=== PATIENT | female | born 1940 | race Caucasian/White ===

== ENCOUNTER 2016-07-29 19:58 | Inpatient (IN) | payer OTHER, MEDICARE ==
[2016-07-29] MEDS ORDERED: MORPHINE SULFATE 4 MG/ML SYRINGE IVP STA (20:10)
[2016-07-29] MEDS ORDERED: RX INFO: IV CONTRAST WAS GIVEN 1 EACH MISC MISCELLANE PRN (20:10)
[2016-07-29] MEDS ORDERED: ONDANSETRON 4 MG/2 ML VIAL IVP STA ×2 (20:10→22:44)
[2016-07-29] MEDS ORDERED: SODIUM CHLORIDE 0.9% 1,000 ML IV STA ×2 (20:10→22:57)
[2016-07-29 20:21] LABS: Basophils % (A) 0 %; CH 30.6; CHCM 34.2; Eosinophils # (A) 0.3 k/uL (0-0.7); Eosinophils % (A) 4 %; HCT 39.5 % (34.0-46.0); HDW 2.75; HGB 13.3 gm/dL (11.4-16.0); Luc # (Auto) 0.28; Luc % (Auto) 3; Lymphocytes % (A) 24 %; MCH 30.4 pg (25.0-35.0); MCHC 33.8 g/dL (31.0-37.0); Mean Platelet Volume 7.4; Monocytes # (A) 0.4 k/uL (0-1.0); Monocytes % (A) 4 %; Neutrophils # (A) 5.4 k/uL (1.3-7.7); Neutrophils % (A) 64 %; RBC 4.39 m/uL (3.80-5.40); RDW 13.5 % (11.5-15.5); WBC 8.4 k/uL (3.8-10.6); WBC (Perox) 8.57
[2016-07-29 20:24] LABS: Glucose,Whole Blood 135 mg/dL (75-99)
[2016-07-29 20:29] LABS: Partial Thromboplastin Time 23.4 sec (22.0-30.0); Prothrombin Time 10.3 sec (9.0-12.0)
[2016-07-29 20:31] LABS: ALT 56 U/L (9-52); AST 58 U/L (14-36); Alcohol <10 mg/dL; Alkaline Phosphatase 62 U/L (38-126); Anion Gap 12 mmol/L; Blood Urea Nitrogen 11 mg/dL (7-17); Calcium 9.3 mg/dL (8.4-10.2); Carbon Dioxide 25 mmol/L (22-30); Chloride 104 mmol/L (98-107); Glucose 124 mg/dL (74-99); Non-African American GFR(MDRD) >60 (>60 ml/min/1.73 sqM); Sodium 141 mmol/L (137-145); Total Bilirubin 0.5 mg/dL (0.2-1.3); Total Protein 6.8 g/dL (6.3-8.2)
[2016-07-29 20:40] LABS: Creatine Kinase 65 U/L (30-135)
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
[2016-07-29 20:54] LABS: Creatine Kinase MB 1.8 ng/mL (0.0-2.4); Troponin I <0.012 ng/mL (0.000-0.034)
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
[2016-07-29] MEDS ORDERED: PANTOPRAZOLE 40 MG/10 ML VIAL IVP STA (22:44)
[2016-07-29] MEDS ORDERED: SODIUM CHLORIDE 0.9% 500 ML IV STA (22:57)
[2016-07-30] MEDS: MORPHINE SULFATE 4 MG/ML SYRINGE IVP PRN ×3 (03:33→10:54)
[2016-07-30] MEDS: ONDANSETRON 4 MG/2 ML VIAL IVP PRN ×2 (07:26→12:27)
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
[2016-07-30 11:54] LABS: Basophils % (A) 0 %; CH 30.4; CHCM 33.1; Eosinophils % (A) 0 %; HCT 33.3 % (34.0-46.0); HGB 11.2 gm/dL (11.4-16.0); Luc # (Auto) 0.11; Luc % (Auto) 2; Lymphocytes # (A) 0.8 k/uL (1.0-4.8); Lymphocytes % (A) 13 %; MCHC 33.6 g/dL (31.0-37.0); MCV 92.2 fL (80.0-100.0); Mean Platelet Volume 7.4; Monocytes # (A) 0.4 k/uL (0-1.0); Monocytes % (A) 6 %; Neutrophils % (A) 80 %; RBC 3.61 m/uL (3.80-5.40); RDW 13.7 % (11.5-15.5); WBC 6.2 k/uL (3.8-10.6); WBC (Perox) 6.96
[2016-07-30 12:01] LABS: ALT 50 U/L (9-52); AST 42 U/L (14-36); Alkaline Phosphatase 49 U/L (38-126); Anion Gap 9 mmol/L; Blood Urea Nitrogen 12 mg/dL (7-17); Calcium 8.3 mg/dL (8.4-10.2); Carbon Dioxide 25 mmol/L (22-30); Chloride 108 mmol/L (98-107); Glucose 136 mg/dL (74-99); Non-African American GFR(MDRD) >60 (>60 ml/min/1.73 sqM); Sodium 142 mmol/L (137-145); Total Bilirubin 0.6 mg/dL (0.2-1.3); Total Protein 5.7 g/dL (6.3-8.2)
[2016-07-30 12:05] LABS: Potassium 4.4 mmol/L (3.5-5.1)
[2016-07-30] MEDS: ALBUTEROL NEBULIZED 2.5 MG/3 ML INHALATION SCH ×2 (12:19→16:32)
[2016-07-30] MEDS: ACETAMINOPHEN IV (For NPO) 1,000 MG in EMPTY BAG 1 BAG IVPB SCH ×3 (12:27→23:21)
[2016-07-30] MEDS: CEPHALEXIN 500 MG CAP PO SCH ×3 (12:28→20:47)
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
[2016-07-30] MEDS: HEPARIN SODIUM,PORCINE 5,000 UNIT/ML 1 ML VIAL SQ SCH ×2 (17:26→23:21)
[2016-07-30] MEDS: HYDROcodone/APAP 5-325MG 1 EACH TAB PO PRN (21:00)
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
[2016-07-31] MEDS: ALBUTEROL NEBULIZED 2.5 MG/3 ML INHALATION SCH ×9 (00:46→20:02)
[2016-07-31] MEDS: HYDROcodone/APAP 5-325MG 1 EACH TAB PO PRN ×3 (04:27→20:53)
[2016-07-31] MEDS: ACETAMINOPHEN IV (For NPO) 1,000 MG in EMPTY BAG 1 BAG IVPB SCH (05:00)
[2016-07-31] MEDS: HEPARIN SODIUM,PORCINE 5,000 UNIT/ML 1 ML VIAL SQ SCH ×3 (08:39→23:06)
[2016-07-31] MEDS: PANTOPRAZOLE 40 MG/10 ML VIAL IVP SCH (08:39)
[2016-07-31] MEDS: CEPHALEXIN 500 MG CAP PO SCH ×4 (08:39→20:41)
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
[2016-07-31 15:25] VITALS: RESP 16
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
[2016-07-31] MEDS ORDERED: ALBUTEROL NEBULIZED 2.5 MG/3 ML INHALATION PRN (19:53)
[2016-07-31] MEDS: ONDANSETRON 4 MG/2 ML VIAL IVP PRN (23:28)
[2016-08-01] MEDS: PANTOPRAZOLE 40 MG/10 ML VIAL IVP SCH (07:23)
[2016-08-01] MEDS: HYDROcodone/APAP 5-325MG 1 EACH TAB PO PRN ×3 (07:23→19:03)
[2016-08-01] MEDS: HEPARIN SODIUM,PORCINE 5,000 UNIT/ML 1 ML VIAL SQ SCH ×2 (07:23→17:38)
[2016-08-01] MEDS: CEPHALEXIN 500 MG CAP PO SCH ×4 (07:23→21:31)
[2016-08-01] MEDS: ALBUTEROL NEBULIZED 2.5 MG/3 ML INHALATION SCH ×4 (07:30→21:44)
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
--- NOTE | 2016-08-01 20:06 | MR ---
EXAMINATION TYPE: MR brain wo con DATE OF EXAM: 08/01/2016 7:47 PM COMPARISON: None HISTORY: Confused Standard multiplanar, multisequence MRI departmental protocol Multiplanar, multisequence images of the brain were acquired. Diffusion weighted imaging was performe d. FINDINGS: there is cerebral cortical atrophy. There is no mass effect nor midline shift. There is no sign of intracranial hemorrhage. There is thinning of the corpus callosum. There is some prominence o f the ventricles. The brainstem is intact. There is no evidence of acute cortical infarct. IMPRESSION: There is evidence of normal pressure mild hydrocephalus. Cerebral atrophy. No acute intracranial abno rmality.
[2016-08-01] MEDS ORDERED: LORazepam 0.5 MG TAB PO SCH (21:00)
[2016-08-02] MEDS: HEPARIN SODIUM,PORCINE 5,000 UNIT/ML 1 ML VIAL SQ SCH ×3 (00:42→16:08)
[2016-08-02] MEDS: HYDROcodone/APAP 5-325MG 1 EACH TAB PO PRN ×3 (00:43→14:47)
[2016-08-02] MEDS ORDERED: PANTOPRAZOLE 40 MG TABLET PO SCH (07:30)
[2016-08-02] MEDS: ALBUTEROL NEBULIZED 2.5 MG/3 ML INHALATION SCH ×3 (08:19→16:24)
[2016-08-02 08:28] LABS: Basophils % (A) 0 %; CH 30.6; CHCM 33.7; Eosinophils # (A) 0.2 k/uL (0-0.7); Eosinophils % (A) 3 %; HCT 31.9 % (34.0-46.0); HDW 2.82; HGB 10.9 gm/dL (11.4-16.0); Luc # (Auto) 0.17; Luc % (Auto) 3; Lymphocytes # (A) 1.3 k/uL (1.0-4.8); Lymphocytes % (A) 24 %; MCH 31.2 pg (25.0-35.0); MCHC 34.1 g/dL (31.0-37.0); MCV 91.4 fL (80.0-100.0); Mean Platelet Volume 7.5; Monocytes # (A) 0.4 k/uL (0-1.0); Monocytes % (A) 7 %; Neutrophils # (A) 3.2 k/uL (1.3-7.7); Neutrophils % (A) 62 %; RBC 3.48 m/uL (3.80-5.40); RDW 13.6 % (11.5-15.5); WBC 5.2 k/uL (3.8-10.6); WBC (Perox) 5.65
[2016-08-02] MEDS: CEPHALEXIN 500 MG CAP PO SCH ×2 (11:43→14:47)
[2016-08-02 14:56] VITALS: BP 174/81; TEMP 99.1
[2016-08-02 16:33] VITALS: PULSE 82
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
== END 2016-08-02 17:35 | DRG 913 ==
LOC: EC 19:58 → 3SUR 22:44
PROVIDERS: ADMIT Surgery; ATTEND Surgery
DX: S09.90XA Unspecified injury of head, initial encounter (principal); G92 Toxic encephalopathy; F03.90 Unspecified dementia, unspecified severity, without behavioral disturbance, psychotic disturbance, mood disturbance, and anxiety; V49.50XA Passenger injured in collision with unspecified motor vehicles in traffic accident, initial encounter; M46.90 Unspecified inflammatory spondylopathy, site unspecified; S02.40DA Maxillary fracture, left side, initial encounter for closed fracture; S42.001A Fracture of unspecified part of right clavicle, initial encounter for closed fracture; T40.605A Adverse effect of unspecified narcotics, initial encounter; Z86.14 Personal history of Methicillin resistant Staphylococcus aureus infection; Z87.891 Personal history of nicotine dependence; Z79.899 Other long term (current) drug therapy; Z88.1 Allergy status to other antibiotic agents; Z82.49 Family history of ischemic heart disease and other diseases of the circulatory system; Z96.60 Presence of unspecified orthopedic joint implant
CPT/HCPCS: 36415; 70450; 70486; 70551; 71010; 71260; 72125; 72170; 74177; 80053; 80320; 82550; 82553; 83690; 84484; 85025; 85610; 85730; 86850; 86900; 86901; 93005; 94640; 94760; 96361; 96374; 96375; 96376; 99291

== ENCOUNTER → 2017-01-05 | Outpatient (CLI) | payer MEDICARE | END | disposition home or self-care (01) | LOC: LABWHC1 08:16 | PROVIDERS: ATTEND Family Medicine | DX: N39.0 Urinary tract infection, site not specified (principal) | CPT/HCPCS: 36415; 87390 ==

== ENCOUNTER 2018-02-14 22:26 | Emergency (ER) | payer MEDICARE ==
[2018-02-14 22:45] VITALS: TEMP 98.1
[2018-02-14] MEDS ORDERED: SODIUM CHLORIDE 0.9% 500 ML IV STA (23:17)
[2018-02-14] MEDS ORDERED: ONDANSETRON 4 MG/2 ML VIAL IVP STA (23:17)
[2018-02-15 00:06] LABS: Basophils % (A) 0 %; Eosinophils # (A) 0.3 k/uL (0-0.7); Eosinophils % (A) 4 %; HCT 40.2 % (34.0-46.0); HGB 13.2 gm/dL (11.4-16.0); Lymphocytes # (A) 1.2 k/uL (1.0-4.8); Lymphocytes % (A) 18 %; MCH 29.7 pg (25.0-35.0); MCHC 32.8 g/dL (31.0-37.0); MCV 90.7 fL (80.0-100.0); Mean Platelet Volume 7.1; Monocytes # (A) 0.3 k/uL (0-1.0); Monocytes % (A) 5 %; Neutrophils % (A) 72 %; Platelet Count 201 k/uL (150-450); RBC 4.44 m/uL (3.80-5.40); RDW 13.4 % (11.5-15.5)
[2018-02-15 00:16] LABS: ALT 26 U/L (9-52); AST 21 U/L (14-36); Albumin 3.7 g/dL (3.5-5.0); Alkaline Phosphatase 47 U/L (38-126); Amylase 105 U/L (30-110); Anion Gap 6 mmol/L; Blood Urea Nitrogen 15 mg/dL (7-17); Calcium 9.1 mg/dL (8.4-10.2); Carbon Dioxide 29 mmol/L (22-30); Chloride 103 mmol/L (98-107); Glucose 109 mg/dL (74-99); Lipase 483 U/L (23-300); Potassium 3.7 mmol/L (3.5-5.1); Sodium 138 mmol/L (137-145); Total Bilirubin 0.5 mg/dL (0.2-1.3); Total Protein 6.2 g/dL (6.3-8.2)
[2018-02-15 00:37] LABS: Appearance,Urine Clear (Clear); Bilirubin,Urine Negative (Negative); Blood,Urine Negative (Negative); Color,Urine Light Yellow; Glucose,Urine (UA) Negative (Negative); Hyaline Casts,Urine 74 /lpf (0-2); Ketones,Urine Negative (Negative); Leukocyte Esterase,Urine Small (Negative); Mucus,Urine Rare /hpf; Nitrite,Urine Negative (Negative); PH, Urine 6.5 (5.0-8.0); Protein,Urine Negative (Negative); RBC,Urine 1 /hpf (0-5); Specific Gravity,Urine 1.011 (1.001-1.035); Squamous Epithelial Cell,Urine <1 /hpf (0-4); Urobilinogen,Urine <2.0 mg/dL (<2.0); WBC,Urine 4 /hpf (0-5)
--- NOTE | 2018-02-15 01:50 | CT ---
EXAMINATION TYPE: CT abdomen pelvis w con DATE OF EXAM: 02/15/2018 COMPARISON: 07/29/2016 HISTORY: lower abdominal pain;diarrhea CT DLP: 1400 mGycm Automated exposure control for dose reduction was used. TECHNIQUE: Helical acquisition of images was performed from the lung bases through the pelvis. CONTRAST: Performed without Oral Contrast and with IV Contrast, patient injected with 100 mL of Isovue 300. FINDINGS: There is some mild reticular density in the lingula left upper lobe. There is no pleural effusion. Th ere is no pericardial effusion. There is small hiatal hernia. Liver spleen pancreas gallbladder appear normal. Bile ducts are not dil ated. There is no adrenal mass. Kidneys show satisfactory contrast opacification. There is no hydronephrosi s. There is 7 mm cyst on the left kidney. There is no retroperitoneal adenopathy. There is no ascites . There is calcified uterine fibroids. Bladder distends smoothly. There is no free fluid in the pelvi s. Appendix appears normal. Abdominal aorta shows moderate atheromatous change. There is no evidence of a renal calculus. There is no sign of free air. There is lower lumbar spine surgery noted. IMPRESSION: SMALL HIATAL HERNIA. FIBROID UTERUS. ATHEROSCLEROTIC VASCULAR DISEASE. NO SIGN OF ACUTE ABDOMEN AND P RASHAWN. THERE IS MINIMAL RETICULAR INFILTRATE OR ATELECTASIS IN THE LINGULA LEFT UPPER LOBE THAT IS SI MILAR COMPARED TO OLD EXAM.
--- NOTE | 2018-02-15 02:03 | ED ---
Abdominal Pain HPI - General Chief Complaint: Abdominal Pain Stated Complaint: Abd Pain Time Seen by Provider: 02/14/18 23:04 Source: patient Mode of arrival: ambulatory Limitations: no limitations - History of Present Illness Initial Comments: 77-year-old female patient presents the emergency department today for evaluation of vomiting and abdominal discomfort. Patient does have history of dementia and is a poor historian however patient's family reports that she has been having some left side pain for the last few days. States she did see her primary care physician yesterday was diagnosed with urinary tract infection started on Augmentin. Family states that today she did have one episode of diarrhea and did have one episode of vomiting this evening. Patient currently denies any abdominal pain. She denies any fever, chills, hematuria, dysuria, urinary frequency, urinary urgency. Patient's family however states that she was urinating more frequently over the last several days. Patient denies any recent rash, fever, chills, shortness breath, chest pain, diarrhea, constipation , back pain, numbness, tingling, dizziness, weakness, headache, visual changes, or any other complaints. - Related Data Home Medications Medication Instructions Recorded Confirmed Cholecalciferol [Vitamin D3] 1,000 unit PO DAILY 07/30/16 07/30/16 Cyanocobalamin [Vitamin B-12] 500 mcg PO DAILY 07/30/16 07/30/16 Multivitamins, Thera [Multivitamin] 1 tab PO DAILY 07/30/16 07/30/16 Naproxen Sodium [Aleve] 440 mg PO QAM 07/30/16 07/30/16 Propranolol [Inderal] 20 mg PO DAILY 07/30/16 07/30/16 Previous Rx's Medication Instructions Recorded Cephalexin [Keflex] 500 mg PO Q6HR #40 cap 07/31/16 Docusate [Colace] 100 mg PO DAILY 30 Days capsule 07/31/16 HYDROcodone/APAP 5-325MG [Egan 1 tab PO Q4HR PRN #30 tab 07/31/16 5-325] Nitrofurantoin Monohyd/M-Cryst 100 mg PO Q12HR #10 cap 02/15/18 [Macrobid] Allergies Allergy/AdvReac Type Severity Reaction Status Date / Time erythromycin base Allergy Unknown Verified 02/14/18 22:45 [From Erythrocin] Review of Systems ROS Statement: Those systems with pertinent positive or pertinent negative responses have been documented in the HPI. ROS Other: All systems not noted in ROS Statement are negative. Past Medical History Past Medical History: Chest Pain / Angina, Dementia History of Any Multi-Drug Resistant Organisms: MRSA Date of last positivie culture/infection: 2012 MDRO Source:: THROAT Past Surgical History: Back Surgery, Joint Replacement Additional Past Surgical History / Comment(s): jas knees,carpal tunnel,neck surgery, rt shoulder Past Anesthesia/Blood Transfusion Reactions: No Reported Reaction Past Psychological History: No Psychological Hx Reported Smoking Status: Former smoker Past Alcohol Use History: Rare Past Drug Use History: None Reported - Past Family History Father Family Medical History: Cancer Mother Family Medical History: Cancer Sister(s) Family Medical History: Myocardial Infarction ([place]) General Exam Limitations: no limitations General appearance: alert, in no apparent distress, other (This is a well- developed, well-nourished elderly female patient in no acute distress. Vital signs upon presentation are temperature 98.1F, pulse 71, respirations 20, blood pressure 188/77, pulse ox 96% on room air.) Eye exam: Present: normal appearance, PERRL, EOMI. Absent: scleral icterus, conjunctival injection, periorbital swelling ENT exam: Present: normal exam, normal oropharynx, mucous membranes moist Respiratory exam: Present: normal lung sounds bilaterally. Absent: respiratory distress, wheezes, rales, rhonchi, stridor Cardiovascular Exam: Present: regular rate, normal rhythm, normal heart sounds. Absent: systolic murmur, diastolic murmur, rubs, gallop, clicks GI/Abdominal exam: Present: soft, tenderness (Mild midepigastric tenderness), normal bowel sounds. Absent: distended, guarding, rebound, rigid Back exam: Present: normal inspection. Absent: CVA tenderness (R), CVA tenderness (L) Neurological exam: Present: alert, oriented X3, CN II-XII intact Psychiatric exam: Present: normal affect, normal mood Skin exam: Present: warm, dry, intact, normal color. Absent: rash Course Vital Signs 02/14/18 02/14/18 02/15/18 22:42 23:58 02:11 Temperature 98.1 F 98.1 F Pulse Rate 71 60 63 Respiratory 20 17 18 Rate Blood Pressure 188/77 157/71 181/84 O2 Sat by Pulse 96 97 96 Oximetry Medical Decision Making - Medical Decision Making 77 year-old female patient presents to emergency department today for complaints of abdominal discomfort, vomiting, and diarrhea. Physical examination did reveal some mild midepigastric tenderness. Labs reviewed and did reveal an elevated lipase at over 400. CT abdomen and pelvis was obtained and showed no acute findings of did show fibroid uterus some atherosclerotic changes to the abdominal aorta and chronic changes in the right lung. Also did show evidence of a left renal cyst. I did discuss findings and results with the patient and her family. We did discuss Augmentin side effects as a possible cause of her vomiting and diarrhea. I did discuss elevated lipase and educated regarding signs or symptoms of pancreatitis. They're instructed follow up with the primary care physician for recheck in 1-2 days. Return parameters discussed in detail with verbalize understanding and agree with this plan. - Lab Data Result diagrams: 02/14/18 23:50 02/14/18 23:50 Lab Results 02/14/18 02/14/18 02/14/18 Range/Units 23:50 23:50 23:50 WBC 7.0 (3.8-10.6) k/uL RBC 4.44 (3.80-5.40) m/uL Hgb 13.2 (11.4-16.0) gm/dL Hct 40.2 (34.0-46.0) % MCV 90.7 (80.0-100.0) fL MCH 29.7 (25.0-35.0) pg MCHC 32.8 (31.0-37.0) g/dL RDW 13.4 (11.5-15.5) % Plt Count 201 (150-450) k/uL Neutrophils % 72 % Lymphocytes % 18 % Monocytes % 5 % Eosinophils % 4 % Basophils % 0 % Neutrophils # 5.0 (1.3-7.7) k/uL Lymphocytes # 1.2 (1.0-4.8) k/uL Monocytes # 0.3 (0-1.0) k/uL Eosinophils # 0.3 (0-0.7) k/uL Basophils # 0.0 (0-0.2) k/uL Sodium 138 (137-145) mmol/L Potassium 3.7 (3.5-5.1) mmol/L Chloride 103 (98-107) mmol/L Carbon Dioxide 29 (22-30) mmol/L Anion Gap 6 mmol/L BUN 15 (7-17) mg/dL Creatinine 0.60 (0.52-1.04) mg/dL Est GFR (CKD-EPI)AfAm >90 (>60 ml/min/1.73 sqM) Est GFR (CKD-EPI)NonAf 89 (>60 ml/min/1.73 sqM) Glucose 109 H (74-99) mg/dL Plasma Lactic Acid Derrick 0.7 (0.7-2.0) mmol/L Calcium 9.1 (8.4-10.2) mg/dL Total Bilirubin 0.5 (0.2-1.3) mg/dL AST 21 (14-36) U/L ALT 26 (9-52) U/L Alkaline Phosphatase 47 (38-126) U/L Troponin I (0.000-0.034) ng/mL Total Protein 6.2 L (6.3-8.2) g/dL Albumin 3.7 (3.5-5.0) g/dL Amylase 105 (30-110) U/L Lipase 483 H (23-300) U/L Urine Color Urine Appearance (Clear) Urine pH (5.0-8.0) Ur Specific [place] (1.001-1.035) Urine Protein (Negative) Urine Glucose (UA) (Negative) Urine Ketones (Negative) Urine Blood (Negative) Urine Nitrite (Negative) Urine Bilirubin (Negative) Urine Urobilinogen (<2.0) mg/dL Ur Leukocyte Esterase (Negative) Urine RBC (0-5) /hpf Urine WBC (0-5) /hpf Ur Squamous Epith Cells (0-4) /hpf Hyaline Casts (0-2) /lpf Urine Mucus (None) /hpf 02/14/18 02/15/18 Range/Units 23:50 00:15 WBC (3.8-10.6) k/uL RBC (3.80-5.40) m/uL Hgb (11.4-16.0) gm/dL Hct (34.0-46.0) % MCV (80.0-100.0) fL MCH (25.0-35.0) pg MCHC (31.0-37.0) g/dL RDW (11.5-15.5) % Plt Count (150-450) k/uL Neutrophils % % Lymphocytes % % Monocytes % % Eosinophils % % Basophils % % Neutrophils # (1.3-7.7) k/uL Lymphocytes # (1.0-4.8) k/uL Monocytes # (0-1.0) k/uL Eosinophils # (0-0.7) k/uL Basophils # (0-0.2) k/uL Sodium (137-145) mmol/L Potassium (3.5-5.1) mmol/L Chloride (98-107) mmol/L Carbon Dioxide (22-30) mmol/L Anion Gap mmol/L BUN (7-17) mg/dL Creatinine (0.52-1.04) mg/dL Est GFR (CKD-EPI)AfAm (>60 ml/min/1.73 sqM) Est GFR (CKD-EPI)NonAf (>60 ml/min/1.73 sqM) Glucose (74-99) mg/dL Plasma Lactic Acid Derrick (0.7-2.0) mmol/L Calcium (8.4-10.2) mg/dL Total Bilirubin (0.2-1.3) mg/dL AST (14-36) U/L ALT (9-52) U/L Alkaline Phosphatase (38-126) U/L Troponin I <0.012 (0.000-0.034) ng/mL Total Protein (6.3-8.2) g/dL Albumin (3.5-5.0) g/dL Amylase (30-110) U/L Lipase (23-300) U/L Urine Color Light Yellow Urine Appearance Clear (Clear) Urine pH 6.5 (5.0-8.0) Ur Specific [place] 1.011 (1.001-1.035) Urine Protein Negative (Negative) Urine Glucose (UA) Negative (Negative) Urine Ketones Negative (Negative) Urine Blood Negative (Negative) Urine Nitrite Negative (Negative) Urine Bilirubin Negative (Negative) Urine Urobilinogen <2.0 (<2.0) mg/dL Ur Leukocyte Esterase Small H (Negative) Urine RBC 1 (0-5) /hpf Urine WBC 4 (0-5) /hpf Ur Squamous Epith Cells <1 (0-4) /hpf Hyaline Casts 74 H (0-2) /lpf Urine Mucus Rare H (None) /hpf - Radiology Data Radiology results: report reviewed, image reviewed CT abdomen and pelvis with contrast was obtained. Report was reviewed in its entirety. Impression by Dr. Bernard shows small hiatal hernia. Fibroid uterus. Atherosclerotic vascular disease. No sign of acute abdomen and pelvis. There is minimal reticular infiltrate or atelectasis in the lingula left upper lobe that is similar compared to old exam. Disposition Clinical Impression: Urinary tract infection, Abdominal pain Disposition: HOME SELF-CARE Condition: Good Instructions: Urinary Tract Infection in Women (ED), Abdominal Pain (ED) Additional Instructions: Increase fluids. Complete antibiotic prescription in full. Follow-up with your primary care physician for recheck in 1-2 days. Return here immediately for any new, worsening, or concerning symptoms. Prescriptions: Nitrofurantoin Monohyd/M-Cryst [Macrobid] 100 mg PO Q12HR #10 cap Is patient prescribed a controlled substance at d/c from ED?: No Referrals: Maulik Summers III, MD [Primary Care Provider] - 1-2 days Time of Disposition: 02:03
[2018-02-15 02:27] VITALS: BP 181/84; PULSE 63; RESP 18
== END 2018-02-15 02:26 | disposition home or self-care (01) ==
LOC: EC 22:26
DX: N39.0 Urinary tract infection, site not specified (principal); R10.9 Unspecified abdominal pain; D25.9 Leiomyoma of uterus, unspecified; I70.0 Atherosclerosis of aorta; R74.8 Abnormal levels of other serum enzymes; F03.90 Unspecified dementia, unspecified severity, without behavioral disturbance, psychotic disturbance, mood disturbance, and anxiety; Z86.14 Personal history of Methicillin resistant Staphylococcus aureus infection; Z87.891 Personal history of nicotine dependence; Z79.1 Long term (current) use of non-steroidal anti-inflammatories (NSAID); Z79.899 Other long term (current) drug therapy; Z88.1 Allergy status to other antibiotic agents
CPT/HCPCS: 36415; 93005; 80053; 82150; 83605; 83690; 84484; 85025; 81001; 74177; 99284; 96374; 96361; J2405; Q9967

== ENCOUNTER 2018-02-28 19:05 | Emergency (ER) | payer MEDICARE ==
[2018-02-28 19:13] VITALS: RESP 18
--- NOTE | 2018-02-28 19:28 | ED ---
General Adult HPI - General Source: patient, RN notes reviewed Mode of arrival: ambulatory Limitations: no limitations <Artem Molina - Last Filed: 02/28/18 20:17> <Naman Gibbons - Last Filed: 02/28/18 22:00> - General Chief complaint: ENT Stated complaint: JAW PAIN, CONFUSION Time Seen by Provider: 02/28/18 19:05 - History of Present Illness Initial comments: This is a 77-year-old female presents emergency Department complaining of TMJ joint pain since last night patient states the pain is gotten worse today. Patient states opening her mouth or talk increases the pain. Patient states external palpation also increases the pain. Patient states she thinks there is slightly swollen but there is no redness. Patient denies any fever chills. Patient denies any dental pain. Patient denies any ear pain or ear drainage. Patient denies headache patient denies any other symptoms at this time. Patient denies chest pain difficulty breathing shortness of breath. I spoke to the son and the patient neither of which complaining of altered mental status patient was not doing much today because it hurt to open her mouth so she wasn' t talking much and that this is what the son meant by out of it. (Artem Molina) - Related Data Home Medications Medication Instructions Recorded Confirmed Multivitamins, Thera [Multivitamin] 1 tab PO DAILY 07/30/16 02/28/18 Naproxen Sodium [Aleve] 440 mg PO ONCE PRN 07/30/16 02/28/18 Propranolol [Inderal] 20 mg PO DAILY 07/30/16 02/28/18 Escitalopram [Lexapro] 10 mg PO HS 02/28/18 02/28/18 Melatonin 5 mg PO HS 02/28/18 02/28/18 Memantine [Namenda] 10 mg PO BID 02/28/18 02/28/18 Rivastigmine [Exelon 13.3MG/24Hr 1 patch TRANSDERM DAILY 02/28/18 02/28/18 Patch] Allergies Allergy/AdvReac Type Severity Reaction Status Date / Time erythromycin base Allergy Unknown Verified 02/28/18 19:33 [From Erythrocin] Review of Systems ROS Other: All systems not noted in ROS Statement are negative. <Artem Molina - Last Filed: 02/28/18 20:17> ROS Other: All systems not noted in ROS Statement are negative. <Naman Gibbons - Last Filed: 02/28/18 22:00> ROS Statement: Those systems with pertinent positive or pertinent negative responses have been documented in the HPI. Past Medical History Past Medical History: Chest Pain / Angina, Dementia Additional Past Medical History / Comment(s): cognitive problems per son History of Any Multi-Drug Resistant Organisms: MRSA Date of last positivie culture/infection: 2012 MDRO Source:: THROAT Past Surgical History: Back Surgery, Joint Replacement Additional Past Surgical History / Comment(s): jas knees,carpal tunnel,neck surgery, rt shoulder Past Anesthesia/Blood Transfusion Reactions: No Reported Reaction Past Psychological History: No Psychological Hx Reported Smoking Status: Former smoker Past Alcohol Use History: Rare Past Drug Use History: None Reported - Past Family History Father Family Medical History: Cancer Mother Family Medical History: Cancer Sister(s) Family Medical History: Myocardial Infarction ([place]) <Artem Molina - Last Filed: 02/28/18 20:17> General Exam Limitations: no limitations <Artem Molina - Last Filed: 02/28/18 20:17> <Naman Gibbons - Last Filed: 02/28/18 22:00> - General Exam Comments Initial Comments: GENERAL: Patient is well-developed and well-nourished. Patient is nontoxic and well- hydrated and is in mild distress. ENT: Neck is soft and supple. No significant lymphadenopathy is noted. Oropharynx is clear. Moist mucous membranes. Neck has full range of motion without eliciting any pain. TMJs slightly swollen and tender to palpation EYES: The sclera were anicteric and conjunctiva were pink and moist. Extraocular movements were intact and pupils were equal round and reactive to light. Eyelids were unremarkable. PULMONARY: Unlabored respirations. Good breath sounds bilaterally. No audible rales rhonchi or wheezing was noted. CARDIOVASCULAR: There is a regular rate and rhythm without any murmurs gallops or rubs. ABDOMEN: Soft and nontender with normal bowel sounds. No palpable organomegaly was noted. There is no palpable pulsatile mass. SKIN: Skin is clear with no lesions or rashes and otherwise unremarkable. NEUROLOGIC: Patient is alert and oriented x3. Cranial nerves II through XII are grossly intact. Motor and sensory are also intact. Normal speech, volume and content. Symmetrical smile. MUSCULOSKELETAL: Normal extremities with adequate strength and full range of motion. LYMPHATICS: No significant lymphadenopathy is noted PSYCHIATRIC: Normal psychiatric evaluation. (Artem Molina) Vital Signs 02/28/18 02/28/18 02/28/18 19:08 19:58 21:05 Temperature 98.3 F Pulse Rate 74 68 61 Respiratory 18 18 18 Rate Blood Pressure 183/77 164/102 165/71 O2 Sat by Pulse 98 95 97 Oximetry Medical Decision Making - Lab Data Result diagrams: 02/28/18 19:40 <Artem Molina - Last Filed: 02/28/18 20:17> - Lab Data Result diagrams: 02/28/18 19:40 02/28/18 19:40 - Radiology Data Radiology results: report reviewed (Negative computed tomography scan of the facial bones. No fracture. Temporomandibular joints are intact.) <Naman Gibbons - Last Filed: 02/28/18 22:00> - Medical Decision Making EKG shows normal sinus rhythm at 60 bpm NJ interval 190 QRS is 80 QT interval 420 QTC is 446. Patient's EKG shows no ST segment elevation or depression. ( Artem Molina) Patient reevaluated by myself, Dr. Gibbons. There is mild fullness and tenderness left TMJ region approximately 1 cm. No erythema. No trismus. No dyspnea. Daughter as that patient could've fallen and nobody known about it. Patient states discomfort is just mild at this time and does not feel she needs any further medication. They're advised to keep close eye on the area and return if symptoms worsen including increased pain or swelling or redness or fever. They're advised close follow-up with primary care physician as well as ENT. (Naman Gibbons) - Lab Data Lab Results 02/28/18 02/28/18 Range/Units 19:40 19:40 WBC 6.5 (3.8-10.6) k/uL RBC 4.46 (3.80-5.40) m/uL Hgb 13.1 (11.4-16.0) gm/dL Hct 40.0 (34.0-46.0) % MCV 89.6 (80.0-100.0) fL MCH 29.4 (25.0-35.0) pg MCHC 32.8 (31.0-37.0) g/dL RDW 13.2 (11.5-15.5) % Plt Count 213 (150-450) k/uL Neutrophils % 56 % Lymphocytes % 31 % Monocytes % 6 % Eosinophils % 4 % Basophils % 0 % Neutrophils # 3.6 (1.3-7.7) k/uL Lymphocytes # 2.0 (1.0-4.8) k/uL Monocytes # 0.4 (0-1.0) k/uL Eosinophils # 0.2 (0-0.7) k/uL Basophils # 0.0 (0-0.2) k/uL Sodium 140 (137-145) mmol/L Potassium 3.6 (3.5-5.1) mmol/L Chloride 105 (98-107) mmol/L Carbon Dioxide 25 (22-30) mmol/L Anion Gap 10 mmol/L BUN 10 (7-17) mg/dL Creatinine 0.50 L (0.52-1.04) mg/dL Est GFR (CKD-EPI)AfAm >90 (>60 ml/min/1.73 sqM) Est GFR (CKD-EPI)NonAf >90 (>60 ml/min/1.73 sqM) Glucose 111 H (74-99) mg/dL Calcium 9.4 (8.4-10.2) mg/dL Total Bilirubin 0.4 (0.2-1.3) mg/dL AST 22 (14-36) U/L ALT 27 (9-52) U/L Alkaline Phosphatase 49 (38-126) U/L C-Reactive Protein 8.7 (<10.0) mg/L Total Protein 6.3 (6.3-8.2) g/dL Albumin 3.7 (3.5-5.0) g/dL Disposition <Artem Molina - Last Filed: 02/28/18 20:17> Is patient prescribed a controlled substance at d/c from ED?: No Time of Disposition: 22:00 <Naman Gibbons - Last Filed: 02/28/18 22:00> Clinical Impression: TMJ arthralgia Disposition: HOME SELF-CARE Condition: Stable Instructions: Temporomandibular Disorder (ED) Additional Instructions: Please follow-up with primary care physician in the next day or 2 for recheck. Also with ENT. Return for fever, increased pain, increased swelling, redness, unable to open mouth, difficulty breathing, worsening symptoms or any other concerns. Aleve as needed. Referrals: Maulik Summers III, MD [Primary Care Provider] - 1-2 days Ran Baker MD [STAFF PHYSICIAN] - 1-2 days
[2018-02-28 20:03] LABS: Basophils % (A) 0 %; Eosinophils # (A) 0.2 k/uL (0-0.7); Eosinophils % (A) 4 %; HGB 13.1 gm/dL (11.4-16.0); Lymphocytes % (A) 31 %; MCH 29.4 pg (25.0-35.0); MCHC 32.8 g/dL (31.0-37.0); MCV 89.6 fL (80.0-100.0); Mean Platelet Volume 7.1; Monocytes # (A) 0.4 k/uL (0-1.0); Monocytes % (A) 6 %; Neutrophils # (A) 3.6 k/uL (1.3-7.7); Neutrophils % (A) 56 %; Platelet Count 213 k/uL (150-450); RBC 4.46 m/uL (3.80-5.40); RDW 13.2 % (11.5-15.5); WBC 6.5 k/uL (3.8-10.6)
[2018-02-28 20:14] LABS: ALT 27 U/L (9-52); AST 22 U/L (14-36); Albumin 3.7 g/dL (3.5-5.0); Alkaline Phosphatase 49 U/L (38-126); Anion Gap 10 mmol/L; Blood Urea Nitrogen 10 mg/dL (7-17); C Reactive Protein 8.7 mg/L (<10.0); Calcium 9.4 mg/dL (8.4-10.2); Carbon Dioxide 25 mmol/L (22-30); Chloride 105 mmol/L (98-107); Glucose 111 mg/dL (74-99); Potassium 3.6 mmol/L (3.5-5.1); Sodium 140 mmol/L (137-145); Total Bilirubin 0.4 mg/dL (0.2-1.3); Total Protein 6.3 g/dL (6.3-8.2)
--- NOTE | 2018-02-28 21:26 | CT ---
EXAMINATION TYPE: CT facial bones wo con DATE OF EXAM: 02/28/2018 COMPARISON: None HISTORY: Left sided jaw pain. CT DLP: 795.5 mGycm Automated exposure control for dose reduction was used. TECHNIQUE: CT scan of the sinuses is performed without contrast, axial images are obtained, coronal r eformatted images are also reviewed. FINDINGS: The mandibular ring is intact. Temporomandibular joints are intact. Maxilla is intact. Ther e is fairly normal aeration of the paranasal sinuses. Orbital margins are intact. There is no evidenc e of retro-orbital mass. There is no evidence of a blowout fracture. Zygomatic arches appear normal. IMPRESSION: Negative CT scan of the facial bones. No fracture.
[2018-02-28 22:22] VITALS: BP 144/66; PULSE 57; TEMP 98.8
== END 2018-02-28 22:22 | disposition home or self-care (01) ==
LOC: EC 19:05
DX: M26.622 Arthralgia of left temporomandibular joint (principal); F03.90 Unspecified dementia, unspecified severity, without behavioral disturbance, psychotic disturbance, mood disturbance, and anxiety; Z87.891 Personal history of nicotine dependence; Z88.1 Allergy status to other antibiotic agents; Z79.899 Other long term (current) drug therapy; Z86.14 Personal history of Methicillin resistant Staphylococcus aureus infection; Z86.79 Personal history of other diseases of the circulatory system
CPT/HCPCS: 36415; 70486; 80053; 85025; 86140; 93005; 99285

== ENCOUNTER 2018-09-01 20:56 | Emergency (ER) | payer MEDICARE ==
[2018-09-01 21:08] VITALS: RESP 16; TEMP 98.3
--- NOTE | 2018-09-01 21:41 | CT ---
EXAMINATION TYPE: CT brain wo con for TPA DATE OF EXAM: 09/01/2018 COMPARISON: 07/29/2016 HISTORY: Neuro deficits. CT DLP: 1067.4 mGycm Automated exposure control for dose reduction was used. FINDINGS: There is some cerebral cortical atrophy. There is no mass effect nor midline shift. There is no sign of intracranial hemorrhage. The calvarium is intact. IMPRESSION: CEREBRAL ATROPHY. NO ACUTE INTRACRANIAL ABNORMALITY. THERE IS CLEARING OF THE LEFT MAXILLARY SINUS FL UID COMPARED TO OLD EXAM.
[2018-09-01 21:46] LABS: Basophils % (A) 1 %; Eosinophils # (A) 0.5 k/uL (0-0.7); Eosinophils % (A) 9 %; HCT 39.9 % (34.0-46.0); HGB 13.1 gm/dL (11.4-16.0); Lymphocytes % (A) 39 %; MCH 29.6 pg (25.0-35.0); MCHC 32.8 g/dL (31.0-37.0); MCV 90.1 fL (80.0-100.0); Mean Platelet Volume 6.9; Monocytes # (A) 0.3 k/uL (0-1.0); Monocytes % (A) 6 %; Neutrophils # (A) 2.3 k/uL (1.3-7.7); Neutrophils % (A) 44 %; Platelet Count 216 k/uL (150-450); RBC 4.42 m/uL (3.80-5.40); RDW 13.6 % (11.5-15.5); WBC 5.3 k/uL (3.8-10.6)
[2018-09-01 21:52] LABS: INR 0.9 (<1.2); Partial Thromboplastin Time 24.3 sec (22.0-30.0)
--- NOTE | 2018-09-01 21:54 | XR ---
EXAMINATION TYPE: XR chest 2V DATE OF EXAM: 09/01/2018 COMPARISON: 07/30/2016 HISTORY: Confusion TECHNIQUE: Frontal and lateral views of the chest are obtained. FINDINGS: There is some linear infiltrate at the left lateral lung base. The other lung barron are c lear. There is no heart failure. Heart size is normal. There is a plate fixing the right clavicle. IMPRESSION: There is a minimal infiltrate or atelectasis at the lateral left lung base. No heart sofiya lure.
[2018-09-01 21:57] LABS: ALT 29 U/L (9-52); AST 27 U/L (14-36); Alkaline Phosphatase 46 U/L (38-126); Anion Gap 6 mmol/L; Blood Urea Nitrogen 15 mg/dL (7-17); Calcium 9.8 mg/dL (8.4-10.2); Carbon Dioxide 29 mmol/L (22-30); Chloride 105 mmol/L (98-107); Glucose 105 mg/dL (74-99); Potassium 4.4 mmol/L (3.5-5.1); Sodium 140 mmol/L (137-145); Total Bilirubin 0.5 mg/dL (0.2-1.3); Total Protein 6.7 g/dL (6.3-8.2)
--- NOTE | 2018-09-01 22:13 | ED ---
General Adult HPI - General Chief complaint: Neuro Symptoms/Deficit Stated complaint: Confusion/slurred speech Time Seen by Provider: 09/01/18 21:09 Source: patient Mode of arrival: ambulatory Limitations: no limitations - History of Present Illness Initial comments: This patient is 78-year-old woman who is brought to be evaluated for problems with speech tonight. At around 8 PM, the patient's son noted that the patient was having difficulty with forming sentences and was also having some slurring per his description. The patient reportedly has history of previous TIA so he brought her here for evaluation. They state that the symptoms seem much improved now. The patient denies having any symptoms at the moment. She attributes the earlier symptoms to having a dry mouth. The patient son does note that the patient has a little bit of dementia. Patient denies headache, change in vision or hearing. She denies any difficulty with swallowing area no weakness or numbness of the extremities. -: hour(s) Consistency: now resolved Improves with: none Worsens with: none Associated Symptoms: denies other symptoms Treatments Prior to Arrival: none - Related Data Home Medications Medication Instructions Recorded Confirmed Multivitamins, Thera [Multivitamin] 1 tab PO DAILY 07/30/16 09/01/18 Memantine [Namenda] 10 mg PO BID 02/28/18 09/01/18 Rivastigmine [Exelon 13.3MG/24Hr 1 patch TRANSDERM DAILY 02/28/18 09/01/18 Patch] Dicyclomine HCl 10 mg PO QID 09/01/18 09/01/18 Escitalopram [Lexapro] 30 mg PO HS 09/01/18 09/01/18 Melatonin 10 mg PO HS 09/01/18 09/01/18 Omeprazole [PriLOSEC] 20 mg PO DAILY 09/01/18 09/01/18 QUEtiapine [SEROquel] 25 mg PO HS 09/01/18 09/01/18 Allergies Allergy/AdvReac Type Severity Reaction Status Date / Time erythromycin base Allergy Unknown Verified 09/01/18 22:02 [From Erythrocin] Review of Systems ROS Statement: Those systems with pertinent positive or pertinent negative responses have been documented in the HPI. ROS Other: All systems not noted in ROS Statement are negative. Constitutional: Denies: fever, chills, weakness Eyes: Denies: vision change Respiratory: Denies: cough, dyspnea Cardiovascular: Denies: chest pain, palpitations, syncope Gastrointestinal: Denies: abdominal pain, vomiting, diarrhea Musculoskeletal: Denies: back pain Skin: Denies: rash Neurological: Reports: as per HPI, other. Denies: headache, weakness, numbness, paresthesias Past Medical History Past Medical History: Chest Pain / Angina, Dementia Additional Past Medical History / Comment(s): cognitive problems per son History of Any Multi-Drug Resistant Organisms: MRSA Date of last positivie culture/infection: 2012 MDRO Source:: THROAT Past Surgical History: Back Surgery, Joint Replacement Additional Past Surgical History / Comment(s): jas knees,carpal tunnel,neck surgery, rt shoulder Past Anesthesia/Blood Transfusion Reactions: No Reported Reaction Past Psychological History: No Psychological Hx Reported Smoking Status: Former smoker Past Alcohol Use History: Rare Past Drug Use History: None Reported - Past Family History Father Family Medical History: Cancer Mother Family Medical History: Cancer Sister(s) Family Medical History: Myocardial Infarction ([place]) General Exam Limitations: no limitations General appearance: alert, in no apparent distress Head exam: Present: atraumatic, normocephalic Eye exam: Present: normal appearance, PERRL, EOMI. Absent: scleral icterus, conjunctival injection ENT exam: Present: mucous membranes dry Neck exam: Present: normal inspection Respiratory exam: Present: normal lung sounds bilaterally. Absent: respiratory distress, wheezes, rales, rhonchi, stridor Cardiovascular Exam: Present: regular rate, normal rhythm, normal heart sounds. Absent: systolic murmur, diastolic murmur, rubs, gallop GI/Abdominal exam: Present: soft. Absent: distended, tenderness, guarding, rebound, mass Extremities exam: Present: normal inspection Neurological exam: Present: alert, CN II-XII intact. Absent: oriented X3 (Patient is oriented to person and place but could not state the exact date), motor sensory deficit Skin exam: Present: warm, dry, intact, normal color. Absent: rash Course Vital Signs 09/01/18 21:02 Temperature 98.3 F Pulse Rate 64 Respiratory 16 Rate Blood Pressure 158/68 O2 Sat by Pulse 97 Oximetry EKG Findings - EKG Results: EKG: interpreted by ERMD, sinus rhythm, normal axis, normal QRS, normal ST/T EKG shows: bradycardia (Rate approximately 58 bpm) Medical Decision Making - Medical Decision Making Additional history reveals that the patient did have a new medication for Parkinson's dementia and had taken numbness just prior to the onset of the episode. The patient may have had symptoms related to this or possibly due to a TIA. The patient is feeling better and requesting go home. - Lab Data Result diagrams: 09/01/18 21:20 09/01/18 21:20 Lab Results 09/01/18 09/01/18 09/01/18 Range/Units 21:20 21:20 21:20 WBC 5.3 (3.8-10.6) k/uL RBC 4.42 (3.80-5.40) m/uL Hgb 13.1 (11.4-16.0) gm/dL Hct 39.9 (34.0-46.0) % MCV 90.1 (80.0-100.0) fL MCH 29.6 (25.0-35.0) pg MCHC 32.8 (31.0-37.0) g/dL RDW 13.6 (11.5-15.5) % Plt Count 216 (150-450) k/uL Neutrophils % 44 % Lymphocytes % 39 % Monocytes % 6 % Eosinophils % 9 % Basophils % 1 % Neutrophils # 2.3 (1.3-7.7) k/uL Lymphocytes # 2.0 (1.0-4.8) k/uL Monocytes # 0.3 (0-1.0) k/uL Eosinophils # 0.5 (0-0.7) k/uL Basophils # 0.0 (0-0.2) k/uL PT 10.0 (9.0-12.0) sec INR 0.9 (<1.2) APTT 24.3 (22.0-30.0) sec Sodium 140 (137-145) mmol/L Potassium 4.4 (3.5-5.1) mmol/L Chloride 105 (98-107) mmol/L Carbon Dioxide 29 (22-30) mmol/L Anion Gap 6 mmol/L BUN 15 (7-17) mg/dL Creatinine 0.49 L (0.52-1.04) mg/dL Est GFR (CKD-EPI)AfAm >90 (>60 ml/min/1.73 sqM) Est GFR (CKD-EPI)NonAf >90 (>60 ml/min/1.73 sqM) Glucose 105 H (74-99) mg/dL Calcium 9.8 (8.4-10.2) mg/dL Total Bilirubin 0.5 (0.2-1.3) mg/dL AST 27 (14-36) U/L ALT 29 (9-52) U/L Alkaline Phosphatase 46 (38-126) U/L Troponin I (0.000-0.034) ng/mL Total Protein 6.7 (6.3-8.2) g/dL Albumin 4.0 (3.5-5.0) g/dL 09/01/18 Range/Units 21:20 WBC (3.8-10.6) k/uL RBC (3.80-5.40) m/uL Hgb (11.4-16.0) gm/dL Hct (34.0-46.0) % MCV (80.0-100.0) fL MCH (25.0-35.0) pg MCHC (31.0-37.0) g/dL RDW (11.5-15.5) % Plt Count (150-450) k/uL Neutrophils % % Lymphocytes % % Monocytes % % Eosinophils % % Basophils % % Neutrophils # (1.3-7.7) k/uL Lymphocytes # (1.0-4.8) k/uL Monocytes # (0-1.0) k/uL Eosinophils # (0-0.7) k/uL Basophils # (0-0.2) k/uL PT (9.0-12.0) sec INR (<1.2) APTT (22.0-30.0) sec Sodium (137-145) mmol/L Potassium (3.5-5.1) mmol/L Chloride (98-107) mmol/L Carbon Dioxide (22-30) mmol/L Anion Gap mmol/L BUN (7-17) mg/dL Creatinine (0.52-1.04) mg/dL Est GFR (CKD-EPI)AfAm (>60 ml/min/1.73 sqM) Est GFR (CKD-EPI)NonAf (>60 ml/min/1.73 sqM) Glucose (74-99) mg/dL Calcium (8.4-10.2) mg/dL Total Bilirubin (0.2-1.3) mg/dL AST (14-36) U/L ALT (9-52) U/L Alkaline Phosphatase (38-126) U/L Troponin I <0.012 (0.000-0.034) ng/mL Total Protein (6.3-8.2) g/dL Albumin (3.5-5.0) g/dL Disposition Clinical Impression: TIA (transient ischemic attack) Disposition: HOME SELF-CARE Condition: Good Instructions (If sedation given, give patient instructions): Transient Ischemic Attack (ED) Is patient prescribed a controlled substance at d/c from ED?: No Referrals: Maulik Summers III, MD [Primary Care Provider] - 1-2 days Florence Painting MD [STAFF PHYSICIAN] - 1-2 days
[2018-09-01 23:43] VITALS: BP 149/72; PULSE 61
== END 2018-09-01 23:42 | disposition home or self-care (01) ==
LOC: EC 20:56
DX: G45.9 Transient cerebral ischemic attack, unspecified (principal); G20 Parkinson's disease; F02.80 Dementia in other diseases classified elsewhere, unspecified severity, without behavioral disturbance, psychotic disturbance, mood disturbance, and anxiety; Z87.891 Personal history of nicotine dependence; Z88.1 Allergy status to other antibiotic agents; Z79.899 Other long term (current) drug therapy; Z86.14 Personal history of Methicillin resistant Staphylococcus aureus infection; Z96.653 Presence of artificial knee joint, bilateral
CPT/HCPCS: 36415; 70450; 71046; 80053; 84484; 85025; 85610; 85730; 93005; 99285

== ENCOUNTER 2018-12-09 12:45 | Emergency (ER) | payer MEDICARE ==
[2018-12-09 12:58] VITALS: RESP 18
[2018-12-09] MEDS ORDERED: SODIUM CHLORIDE 0.9% 1,000 ML IV STA (13:07)
--- NOTE | 2018-12-09 13:47 | ED ---
Recheck HPI - General Chief Complaint: Recheck/Abnormal Lab/Rx Stated Complaint: UTI Time Seen by Provider: 12/09/18 13:07 Source: patient, RN notes reviewed Mode of arrival: ambulatory Limitations: no limitations - History of Present Illness Initial Comments: 38-year-old female presents emergency department with family chief complaint of UTI. Patient diagnosed with UTI 2 days ago. Patient has been taken Macrobid. No reported fever. Denies any nausea vomiting diarrhea constipation. Patient has underlying dementia and family states that she has slight confusion yesterday but not as bad today. Patient was advised by PCP if no real improvement that she should go to the ER to be evaluated. Patient has underlying erythromycin ALLERGY and sulfa ALLERGY - Related Data Home Medications Medication Instructions Recorded Confirmed Multivitamins, Thera [Multivitamin] 1 tab PO DAILY 07/30/16 12/09/18 Memantine [Namenda] 10 mg PO BID 02/28/18 12/09/18 Rivastigmine [Exelon 13.3MG/24Hr 1 patch TRANSDERM DAILY 02/28/18 12/09/18 Patch] Dicyclomine HCl 10 mg PO QID 09/01/18 12/09/18 Escitalopram [Lexapro] 30 mg PO HS 09/01/18 12/09/18 Melatonin 10 mg PO HS 09/01/18 12/09/18 Omeprazole [PriLOSEC] 20 mg PO DAILY 09/01/18 12/09/18 QUEtiapine [SEROquel] 25 mg PO HS 09/01/18 12/09/18 Nitrofurantoin Monohyd/M-Cryst 100 mg PO Q12HR 12/09/18 12/09/18 [Macrobid] Ubidecarenone [Co Q-10] 100 mg PO DAILY 12/09/18 12/09/18 Previous Rx's Medication Instructions Recorded Cephalexin [Keflex] 500 mg PO Q6HR #28 cap 12/09/18 Allergies Allergy/AdvReac Type Severity Reaction Status Date / Time erythromycin base Allergy Unknown Verified 12/09/18 14:10 [From Erythrocin] Review of Systems ROS Statement: Those systems with pertinent positive or pertinent negative responses have been documented in the HPI. ROS Other: All systems not noted in ROS Statement are negative. Past Medical History Past Medical History: Chest Pain / Angina, Dementia Additional Past Medical History / Comment(s): cognitive problems per son History of Any Multi-Drug Resistant Organisms: MRSA Date of last positivie culture/infection: 2012 MDRO Source:: THROAT Past Surgical History: Back Surgery, Joint Replacement Additional Past Surgical History / Comment(s): jas knees,carpal tunnel,neck surgery, rt shoulder Past Anesthesia/Blood Transfusion Reactions: No Reported Reaction Past Psychological History: No Psychological Hx Reported Smoking Status: Former smoker Past Alcohol Use History: Rare Past Drug Use History: None Reported - Past Family History Father Family Medical History: Cancer Mother Family Medical History: Cancer Sister(s) Family Medical History: Myocardial Infarction ([place]) General Exam Limitations: no limitations General appearance: alert, in no apparent distress Head exam: Present: atraumatic, normocephalic, normal inspection Eye exam: Present: normal appearance, PERRL, EOMI. Absent: scleral icterus, c onjunctival injection, periorbital swelling Respiratory exam: Present: normal lung sounds bilaterally. Absent: respiratory distress, wheezes, rales, rhonchi, stridor Cardiovascular Exam: Present: regular rate, normal rhythm, normal heart sounds. Absent: systolic murmur, diastolic murmur, rubs, gallop, clicks GI/Abdominal exam: Present: soft, normal bowel sounds. Absent: distended, tenderness, guarding, rebound, rigid Back exam: Absent: CVA tenderness (R), CVA tenderness (L) Course Vital Signs 12/09/18 12:54 Temperature 99.7 F H Pulse Rate 87 Respiratory 18 Rate Blood Pressure 120/66 O2 Sat by Pulse 96 Oximetry Medical Decision Making - Medical Decision Making 78-year-old female presented for UTI. Patient labwork, repeat urinalysis does show evidence of mild urinary tract infection though minimal leukocytosis, normal lactic and vitals are stable. Patient family offered admission versus IV antibiotics now and discharged with close follow-up. They feel more comfortable with discharge and follow-up with PCP at this point will return for any worsening symptoms - Lab Data Result diagrams: 12/09/18 13:53 12/09/18 13:53 Lab Results 12/09/18 12/09/18 12/09/18 Range/Units 13:53 13:53 13:53 WBC 12.0 H (3.8-10.6) k/uL RBC 4.14 (3.80-5.40) m/uL Hgb 12.2 (11.4-16.0) gm/dL Hct 37.0 (34.0-46.0) % MCV 89.5 (80.0-100.0) fL MCH 29.5 (25.0-35.0) pg MCHC 33.0 (31.0-37.0) g/dL RDW 13.7 (11.5-15.5) % Plt Count 212 (150-450) k/uL Neutrophils % 87 % Lymphocytes % 6 % Monocytes % 3 % Eosinophils % 3 % Basophils % 0 % Neutrophils # 10.3 H (1.3-7.7) k/uL Lymphocytes # 0.7 L (1.0-4.8) k/uL Monocytes # 0.3 (0-1.0) k/uL Eosinophils # 0.4 (0-0.7) k/uL Basophils # 0.0 (0-0.2) k/uL Sodium 138 (137-145) mmol/L Potassium 3.9 (3.5-5.1) mmol/L Chloride 104 (98-107) mmol/L Carbon Dioxide 25 (22-30) mmol/L Anion Gap 9 mmol/L BUN 13 (7-17) mg/dL Creatinine 0.52 (0.52-1.04) mg/dL Est GFR (CKD-EPI)AfAm >90 (>60 ml/min/1.73 sqM) Est GFR (CKD-EPI)NonAf >90 (>60 ml/min/1.73 sqM) Glucose 126 H (74-99) mg/dL Plasma Lactic Acid Derrick 1.5 (0.7-2.0) mmol/L Calcium 9.1 (8.4-10.2) mg/dL Total Bilirubin 0.5 (0.2-1.3) mg/dL AST 19 (14-36) U/L ALT 13 (9-52) U/L Alkaline Phosphatase 64 (38-126) U/L Total Protein 6.0 L (6.3-8.2) g/dL Albumin 3.6 (3.5-5.0) g/dL Amylase 42 (30-110) U/L Lipase 54 (23-300) U/L Urine Color Urine Appearance (Clear) Urine pH (5.0-8.0) Ur Specific [place] (1.001-1.035) Urine Protein (Negative) Urine Glucose (UA) (Negative) Urine Ketones (Negative) Urine Blood (Negative) Urine Nitrite (Negative) Urine Bilirubin (Negative) Urine Urobilinogen (<2.0) mg/dL Ur Leukocyte Esterase (Negative) Urine RBC (0-5) /hpf Urine WBC (0-5) /hpf Ur Squamous Epith Cells (0-4) /hpf Urine Bacteria (None) /hpf Hyaline Casts (0-2) /lpf Urine Mucus (None) /hpf 12/09/18 Range/Units 13:53 WBC (3.8-10.6) k/uL RBC (3.80-5.40) m/uL Hgb (11.4-16.0) gm/dL Hct (34.0-46.0) % MCV (80.0-100.0) fL MCH (25.0-35.0) pg MCHC (31.0-37.0) g/dL RDW (11.5-15.5) % Plt Count (150-450) k/uL Neutrophils % % Lymphocytes % % Monocytes % % Eosinophils % % Basophils % % Neutrophils # (1.3-7.7) k/uL Lymphocytes # (1.0-4.8) k/uL Monocytes # (0-1.0) k/uL Eosinophils # (0-0.7) k/uL Basophils # (0-0.2) k/uL Sodium (137-145) mmol/L Potassium (3.5-5.1) mmol/L Chloride (98-107) mmol/L Carbon Dioxide (22-30) mmol/L Anion Gap mmol/L BUN (7-17) mg/dL Creatinine (0.52-1.04) mg/dL Est GFR (CKD-EPI)AfAm (>60 ml/min/1.73 sqM) Est GFR (CKD-EPI)NonAf (>60 ml/min/1.73 sqM) Glucose (74-99) mg/dL Plasma Lactic Acid [place]rick (0.7-2.0) mmol/L Calcium (8.4-10.2) mg/dL Total Bilirubin (0.2-1.3) mg/dL AST (14-36) U/L ALT (9-52) U/L Alkaline Phosphatase (38-126) U/L Total Protein (6.3-8.2) g/dL Albumin (3.5-5.0) g/dL Amylase (30-110) U/L Lipase (23-300) U/L Urine Color Yellow Urine Appearance Cloudy H (Clear) Urine pH 5.5 (5.0-8.0) Ur Specific [place] 1.016 (1.001-1.035) Urine Protein Trace H (Negative) Urine Glucose (UA) Negative (Negative) Urine Ketones Negative (Negative) Urine Blood Negative (Negative) Urine Nitrite Negative (Negative) Urine Bilirubin Negative (Negative) Urine Urobilinogen <2.0 (<2.0) mg/dL Ur Leukocyte Esterase Moderate H (Negative) Urine RBC 2 (0-5) /hpf Urine WBC 42 H (0-5) /hpf Ur Squamous Epith Cells <1 (0-4) /hpf Urine Bacteria Rare H (None) /hpf Hyaline Casts 4 H (0-2) /lpf Urine Mucus Many H (None) /hpf Disposition Clinical Impression: UTI (urinary tract infection) Disposition: HOME SELF-CARE Condition: Stable Instructions (If sedation given, give patient instructions): Urinary Tract Infection in Women ([place]) Additional Instructions: Please return to the Emergency Department if symptoms worsen or any other concerns. Prescriptions: Cephalexin [Keflex] 500 mg PO Q6HR #28 cap Is patient prescribed a controlled substance at d/c from ED?: No Referrals: Maulik Summers III, MD [Primary Care Provider] - 1-2 days Time of Disposition: 15:04
[2018-12-09 14:17] LABS: Basophils % (A) 0 %; Eosinophils # (A) 0.4 k/uL (0-0.7); Eosinophils % (A) 3 %; HGB 12.2 gm/dL (11.4-16.0); Lymphocytes # (A) 0.7 k/uL (1.0-4.8); Lymphocytes % (A) 6 %; MCH 29.5 pg (25.0-35.0); MCV 89.5 fL (80.0-100.0); Mean Platelet Volume 7.2; Monocytes # (A) 0.3 k/uL (0-1.0); Monocytes % (A) 3 %; Neutrophils # (A) 10.3 k/uL (1.3-7.7); Neutrophils % (A) 87 %; Platelet Count 212 k/uL (150-450); RBC 4.14 m/uL (3.80-5.40); RDW 13.7 % (11.5-15.5)
[2018-12-09 14:20] LABS: Appearance,Urine Cloudy (Clear); Bacteria,Urine Rare /hpf; Bilirubin,Urine Negative (Negative); Blood,Urine Negative (Negative); Color,Urine Yellow; Glucose,Urine (UA) Negative (Negative); Hyaline Casts,Urine 4 /lpf (0-2); Ketones,Urine Negative (Negative); Leukocyte Esterase,Urine Moderate (Negative); Mucus,Urine Many /hpf; Nitrite,Urine Negative (Negative); PH, Urine 5.5 (5.0-8.0); Protein,Urine Trace (Negative); RBC,Urine 2 /hpf (0-5); Specific Gravity,Urine 1.016 (1.001-1.035); Squamous Epithelial Cell,Urine <1 /hpf (0-4); Urobilinogen,Urine <2.0 mg/dL (<2.0)
[2018-12-09 14:29] LABS: ALT 13 U/L (9-52); AST 19 U/L (14-36); African American GFR (CKD) >90 (>60 ml/min/1.73 sqM); Albumin 3.6 g/dL (3.5-5.0); Alkaline Phosphatase 64 U/L (38-126); Amylase 42 U/L (30-110); Anion Gap 9 mmol/L; Blood Urea Nitrogen 13 mg/dL (7-17); Calcium 9.1 mg/dL (8.4-10.2); Carbon Dioxide 25 mmol/L (22-30); Chloride 104 mmol/L (98-107); Glucose 126 mg/dL (74-99); Lipase 54 U/L (23-300); Potassium 3.9 mmol/L (3.5-5.1); Sodium 138 mmol/L (137-145); Total Bilirubin 0.5 mg/dL (0.2-1.3)
[2018-12-09] MEDS ORDERED: cefTRIAXone IN SWFI 1,000 MG/10 ML SYRINGE IVP STA (15:01)
[2018-12-09 15:30] VITALS: BP 146/62; PULSE 69; TEMP 99.4
== END 2018-12-09 15:38 | disposition home or self-care (01) ==
LOC: EC 12:45
DX: N39.0 Urinary tract infection, site not specified (principal); R41.0 Disorientation, unspecified; F03.90 Unspecified dementia, unspecified severity, without behavioral disturbance, psychotic disturbance, mood disturbance, and anxiety; Z86.14 Personal history of Methicillin resistant Staphylococcus aureus infection; Z87.891 Personal history of nicotine dependence; Z79.899 Other long term (current) drug therapy; Z88.1 Allergy status to other antibiotic agents; Z96.653 Presence of artificial knee joint, bilateral
CPT/HCPCS: 36415; 80053; 82150; 83605; 83690; 85025; 81001; 87040; 87086; 99283; 96374; 96361; J0696

== ENCOUNTER 2019-04-24 14:12 | Inpatient (IN) | payer MEDICARE ==
[2019-04-24 15:41] LABS: Appearance,Urine Cloudy (Clear); Bacteria,Urine Few /hpf; Bilirubin,Urine Negative (Negative); Blood,Urine Trace (Negative); Budding Yeast,Urine Occasional /hpf; Color,Urine Yellow; Glucose,Urine (UA) Negative (Negative); Ketones,Urine Negative (Negative); Leukocyte Esterase,Urine Large (Negative); Mucus,Urine Occasional /hpf; Nitrite,Urine Negative (Negative); PH, Urine 5.5 (5.0-8.0); Protein,Urine Negative (Negative); RBC,Urine 3 /hpf (0-5); Specific Gravity,Urine 1.011 (1.001-1.035); Urobilinogen,Urine <2.0 mg/dL (<2.0)
--- NOTE | 2019-04-24 16:30 | ED ---
General Adult HPI - General Chief complaint: Altered Mental Status Stated complaint: poss UTI/vomiting Time Seen by Provider: 04/24/19 16:00 Source: patient, family, RN notes reviewed Mode of arrival: ambulatory Limitations: altered mental status - History of Present Illness Initial comments: Patient is a pleasant 79-year-old female presenting to the emergency department with complaints of reported vomiting. History is taken from the daughter. Patient states she feels fine and has no complaints at this time. Patient does have advanced dementia per daughter. Daughter adds that patient did vomit twice. No vomiting recently. Daughter is concerned because patient had similar symptoms previously associated with urinary tract infection. Daughter would like her checked for this. Daughter states at home she seemed to be a slightly more confused than normal which she has had previously with urinary tract infections as well. No weakness has been noted. No speech changes have been noted. Patient denies any abdominal pain or nausea at this time. Patient denies any chest pain or dyspnea. - Related Data Home Medications Medication Instructions Recorded Confirmed Multivitamins, Thera [Multivitamin] 1 tab PO DAILY 07/30/16 04/24/19 Memantine [Namenda] 10 mg PO BID 02/28/18 04/24/19 Rivastigmine [Exelon 13.3MG/24Hr 1 patch TRANSDERM DAILY 02/28/18 04/24/19 Patch] Dicyclomine HCl 10 mg PO TID 09/01/18 04/24/19 Escitalopram [Lexapro] 20 mg PO HS 09/01/18 04/24/19 Melatonin 10 mg PO HS 09/01/18 04/24/19 Omeprazole [PriLOSEC] 20 mg PO DAILY 09/01/18 04/24/19 QUEtiapine [SEROquel] 25 mg PO HS 09/01/18 04/24/19 Ubidecarenone [Co Q-10] 100 mg PO DAILY 12/09/18 04/24/19 ALPRAZolam [Xanax] 0.25 mg PO HS 04/24/19 04/24/19 Atorvastatin [Lipitor] 20 mg PO HS 04/24/19 04/24/19 Cholecalciferol [Vitamin D3 (25 1,000 unit PO DAILY 04/24/19 04/24/19 Mcg = 1000 Iu)] Naproxen Sodium [Aleve] 440 mg PO DAILY 04/24/19 04/24/19 Destrehan-3 Fatty Acids/Fish Oil [Fish 1 cap PO DAILY 04/24/19 04/24/19 Oil 1,000 mg Softgel] Previous Rx's Medication Instructions Recorded Nitrofurantoin Monohyd/M-Cryst 100 mg PO Q12HR #20 cap 04/24/19 [Macrobid] Ondansetron Odt [Zofran Odt] 8 mg PO Q8HR PRN #10 tab 04/24/19 Allergies Allergy/AdvReac Type Severity Reaction Status Date / Time erythromycin base Allergy Unknown Verified 04/24/19 16:13 [From Erythrocin] Review of Systems ROS Statement: Those systems with pertinent positive or pertinent negative responses have been documented in the HPI. ROS Other: All systems not noted in ROS Statement are negative. Constitutional: Denies: fever Eyes: Denies: eye pain ENT: Denies: ear pain Respiratory: Denies: cough Cardiovascular: Denies: chest pain Endocrine: Denies: fatigue Gastrointestinal: Reports: vomiting. Denies: abdominal pain Genitourinary: Denies: dysuria Musculoskeletal: Denies: back pain Skin: Denies: rash Neurological: Reports: as per HPI. Denies: weakness Past Medical History Past Medical History: Chest Pain / Angina, Dementia Additional Past Medical History / Comment(s): cognitive problems per son History of Any Multi-Drug Resistant Organisms: MRSA Date of last positivie culture/infection: 2012 MDRO Source:: THROAT Past Surgical History: Back Surgery, Joint Replacement Additional Past Surgical History / Comment(s): jas knees,carpal tunnel,neck surgery, rt shoulder Past Anesthesia/Blood Transfusion Reactions: No Reported Reaction Past Psychological History: No Psychological Hx Reported Smoking Status: Former smoker Past Alcohol Use History: Rare Past Drug Use History: None Reported - Past Family History Father Family Medical History: Cancer Mother Family Medical History: Cancer Sister(s) Family Medical History: Myocardial Infarction ([place]) General Exam Limitations: altered mental status General appearance: alert, in no apparent distress Head exam: Present: normocephalic Eye exam: Present: normal appearance, PERRL, EOMI. Absent: nystagmus ENT exam: Present: normal oropharynx Neck exam: Present: normal inspection. Absent: tenderness, meningismus Respiratory exam: Present: normal lung sounds bilaterally Cardiovascular Exam: Present: regular rate, normal rhythm GI/Abdominal exam: Present: soft. Absent: distended, tenderness, guarding, rebound, rigid, pulsatile mass Extremities exam: Present: normal inspection Neurological exam: Present: alert, CN II-XII intact. Absent: motor sensory deficit Expanded Neurological exam: Present: protecting the airway Patient oriented to: Present: person. Absent: place, time Speech: Present: fluid speech Cranial nerves: EOM's Intact: Normal, Facial Sensation: Normal Sensory exam: Upper Extremity Light Touch: Normal, Lower Extremity Light Touch: Normal Motor strength exam: RUE: 5, LUE: 5, RLE: 5, LLE: 5 Eye Response: (4) open spontaneously Motor Response: (6) obeys commands Verbal Response: (5) oriented Psychiatric exam: Present: normal affect, normal mood Skin exam: Present: normal color Course Vital Signs 04/24/19 04/24/19 14:36 17:28 Temperature 98.3 F Pulse Rate 70 55 L Respiratory 20 18 Rate Blood Pressure 147/88 170/73 O2 Sat by Pulse 97 95 Oximetry - Reevaluation(s) Reevaluation #1: 04/24/19 16:28 Discussed with patient and daughter that there are no signs of stroke however this cannot be 100 percent ruled out. Computed tomography scan was offered however daughter refuses. Medical Decision Making - Medical Decision Making Patient reevaluated and resting comfortably in bed. Patient symptom-free at this time. Patient and family updated on results and need for follow-up. - Lab Data Result diagrams: 04/24/19 16:10 04/24/19 16:10 Lab Results 04/24/19 04/24/19 04/24/19 Range/Units 15:30 16:10 16:10 WBC 6.5 (3.8-10.6) k/uL RBC 4.32 (3.80-5.40) m/uL Hgb 13.3 (11.4-16.0) gm/dL Hct 38.6 (34.0-46.0) % MCV 89.3 (80.0-100.0) fL MCH 30.8 (25.0-35.0) pg MCHC 34.5 (31.0-37.0) g/dL RDW 13.0 (11.5-15.5) % Plt Count 265 (150-450) k/uL Neutrophils % 57 % Lymphocytes % 30 % Monocytes % 6 % Eosinophils % 3 % Basophils % 0 % Neutrophils # 3.7 (1.3-7.7) k/uL Lymphocytes # 2.0 (1.0-4.8) k/uL Monocytes # 0.4 (0-1.0) k/uL Eosinophils # 0.2 (0-0.7) k/uL Basophils # 0.0 (0-0.2) k/uL Sodium 139 (137-145) mmol/L Potassium 3.8 (3.5-5.1) mmol/L Chloride 105 (98-107) mmol/L Carbon Dioxide 25 (22-30) mmol/L Anion Gap 9 mmol/L BUN 14 (7-17) mg/dL Creatinine 0.62 (0.52-1.04) mg/dL Est GFR (CKD-EPI)AfAm >90 (>60 ml/min/1.73 sqM) Est GFR (CKD-EPI)NonAf 87 (>60 ml/min/1.73 sqM) Glucose 108 H (74-99) mg/dL Calcium 9.4 (8.4-10.2) mg/dL Urine Color Yellow Urine Appearance Cloudy H (Clear) Urine pH 5.5 (5.0-8.0) Ur Specific [place] 1.011 (1.001-1.035) Urine Protein Negative (Negative) Urine Glucose (UA) Negative (Negative) Urine Ketones Negative (Negative) Urine Blood Trace H (Negative) Urine Nitrite Negative (Negative) Urine Bilirubin Negative (Negative) Urine Urobilinogen <2.0 (<2.0) mg/dL Ur Leukocyte Esterase Large H (Negative) Urine RBC 3 (0-5) /hpf Urine WBC 72 H (0-5) /hpf Urine Bacteria Few H (None) /hpf Urine Mucus Occasional H (None) /hpf Urine Yeast (Budding) Occasional H (None) /hpf Disposition Clinical Impression: Urinary tract infection Disposition: HOME SELF-CARE Condition: Stable Instructions (If sedation given, give patient instructions): Urinary Tract Infection in Older Adults (ED) Additional Instructions: Please follow-up with primary care physician in the next couple days for recheck. Return for altered mental status, fevers, persistent vomiting, worsening symptoms or any other concerns. [facility] Pres[facility]: Nitrofurantoin Monohyd/M-Cryst [Macrobid] 100 mg PO Q12HR #20 cap Ondansetron Odt [Zofran Odt] 8 mg PO Q8HR PRN #10 tab PRN Reason: Nausea Is patient prescribed a controlled substance at d/c from ED?: No Referrals: Maulik Summers III, MD [Primary Care Provider] - 1-2 days Time of Disposition: 17:23
[2019-04-24 16:41] LABS: Basophils % (A) 0 %; Eosinophils # (A) 0.2 k/uL (0-0.7); Eosinophils % (A) 3 %; HCT 38.6 % (34.0-46.0); HGB 13.3 gm/dL (11.4-16.0); Lymphocytes % (A) 30 %; MCH 30.8 pg (25.0-35.0); MCHC 34.5 g/dL (31.0-37.0); MCV 89.3 fL (80.0-100.0); Mean Platelet Volume 6.7; Monocytes # (A) 0.4 k/uL (0-1.0); Monocytes % (A) 6 %; Neutrophils # (A) 3.7 k/uL (1.3-7.7); Neutrophils % (A) 57 %; Platelet Count 265 k/uL (150-450); RBC 4.32 m/uL (3.80-5.40); WBC 6.5 k/uL (3.8-10.6)
[2019-04-24] MEDS ORDERED: ONDANSETRON 4 MG/2 ML VIAL IVP STA (16:43)
[2019-04-24] MEDS ORDERED: FAMOTIDINE 20 MG/2 ML VIAL IV STA (16:43)
[2019-04-24] MEDS ORDERED: SODIUM CHLORIDE 0.9% 500 ML 500 ML IV ONE (16:43)
[2019-04-24 16:46] LABS: African American GFR (CKD) >90 (>60 ml/min/1.73 sqM); Anion Gap 9 mmol/L; Blood Urea Nitrogen 14 mg/dL (7-17); Calcium 9.4 mg/dL (8.4-10.2); Carbon Dioxide 25 mmol/L (22-30); Chloride 105 mmol/L (98-107); Glucose 108 mg/dL (74-99); Potassium 3.8 mmol/L (3.5-5.1); Sodium 139 mmol/L (137-145)
--- NOTE | 2019-04-24 18:39 | ED ---
Medical Decision Making - Medical Decision Making Patient did vomit again in the emergency department. Family is not comfortable with discharge. Dr. Leblanc has been paged for admission, covering for Dr. Summers - Lab Data Result diagrams: 04/24/19 16:10 04/24/19 16:10 Lab Results 04/24/19 04/24/19 04/24/19 Range/Units 15:30 16:10 16:10 WBC 6.5 (3.8-10.6) k/uL RBC 4.32 (3.80-5.40) m/uL Hgb 13.3 (11.4-16.0) gm/dL Hct 38.6 (34.0-46.0) % MCV 89.3 (80.0-100.0) fL MCH 30.8 (25.0-35.0) pg MCHC 34.5 (31.0-37.0) g/dL RDW 13.0 (11.5-15.5) % Plt Count 265 (150-450) k/uL Neutrophils % 57 % Lymphocytes % 30 % Monocytes % 6 % Eosinophils % 3 % Basophils % 0 % Neutrophils # 3.7 (1.3-7.7) k/uL Lymphocytes # 2.0 (1.0-4.8) k/uL Monocytes # 0.4 (0-1.0) k/uL Eosinophils # 0.2 (0-0.7) k/uL Basophils # 0.0 (0-0.2) k/uL Sodium 139 (137-145) mmol/L Potassium 3.8 (3.5-5.1) mmol/L Chloride 105 (98-107) mmol/L Carbon Dioxide 25 (22-30) mmol/L Anion Gap 9 mmol/L BUN 14 (7-17) mg/dL Creatinine 0.62 (0.52-1.04) mg/dL Est GFR (CKD-EPI)AfAm >90 (>60 ml/min/1.73 sqM) Est GFR (CKD-EPI)NonAf 87 (>60 ml/min/1.73 sqM) Glucose 108 H (74-99) mg/dL Calcium 9.4 (8.4-10.2) mg/dL Urine Color Yellow Urine Appearance Cloudy H (Clear) Urine pH 5.5 (5.0-8.0) Ur Specific [place] 1.011 (1.001-1.035) Urine Protein Negative (Negative) Urine Glucose (UA) Negative (Negative) Urine Ketones Negative (Negative) Urine Blood Trace H (Negative) Urine Nitrite Negative (Negative) Urine Bilirubin Negative (Negative) Urine Urobilinogen <2.0 (<2.0) mg/dL Ur Leukocyte Esterase Large H (Negative) Urine RBC 3 (0-5) /hpf Urine WBC 72 H (0-5) /hpf Urine Bacteria Few H (None) /hpf Urine Mucus Occasional H (None) /hpf Urine Yeast (Budding) Occasional H (None) /hpf Disposition Clinical Impression: Urinary tract infection Disposition: ADMITTED IP TO THIS HOSP Condition: Stable Instructions (If sedation given, give patient instructions): Urinary Tract Infection in Older Adults (ED) Additional Instructions: Please follow-up with primary care physician in the next couple days for recheck. Return for altered mental status, fevers, persistent vomiting, worsening symptoms or any other concerns. Prescription has been sent to [facility] on Prescriptions: Nitrofurantoin Monohyd/M-Cryst [Macrobid] 100 mg PO Q12HR #20 cap Ondansetron Odt [Zofran Odt] 8 mg PO Q8HR PRN #10 tab PRN Reason: Nausea Is patient prescribed a controlled substance at d/c from ED?: No Referrals: Maulik Summers III, MD [Primary Care Provider] - 1-2 days Decision Time: 18:39
[2019-04-24] MEDS ORDERED: NALOXONE 0.4 MG/ML 1 ML VIAL IV PRN (18:41)
[2019-04-24] MEDS ORDERED: ACETAMINOPHEN TAB 325 MG TAB PO PRN (18:41)
[2019-04-24] MEDS: ONDANSETRON 4 MG/2 ML VIAL IVP PRN (19:09)
[2019-04-24] MEDS: SODIUM CHLORIDE 0.9% 1,000 ML IV SCH (19:10)
[2019-04-24] MEDS ORDERED: METOCLOPRAMIDE 5 MG/ML 2 ML VIAL IVP STA (20:18)
[2019-04-24] MEDS ORDERED: diphenhydrAMINE 50 MG/ML 1 ML VIAL IVP STA (21:26)
[2019-04-24] MEDS ORDERED: hydrALAZINE HCL 20 MG/ML 1 ML VIAL IVP STA (21:53)
[2019-04-24 22:45] VITALS: BMI 30.7
[2019-04-25] MEDS: ALPRAZolam 0.25 MG TAB PO SCH ×2 (02:21→21:19)
[2019-04-25] MEDS: ESCITALOPRAM 20 MG TAB PO SCH ×2 (02:22→21:19)
[2019-04-25] MEDS: MELATONIN 5 MG TABLET PO SCH ×2 (02:22→21:19)
[2019-04-25] MEDS: ATORVASTATIN 20 MG TAB PO SCH ×2 (02:22→21:19)
[2019-04-25] MEDS: MEMANTINE 10 MG TAB PO SCH ×3 (02:22→21:19)
[2019-04-25] MEDS: QUEtiapine 25 MG TAB PO SCH ×2 (02:22→21:19)
[2019-04-25] MEDS: ONDANSETRON 4 MG/2 ML VIAL IVP PRN (03:24)
[2019-04-25] MEDS: SODIUM CHLORIDE 0.9% 1,000 ML IV SCH ×3 (04:23→19:23)
[2019-04-25] MEDS ORDERED: PANTOPRAZOLE 40 MG/10 ML VIAL IV SCH (09:00)
--- NOTE | 2019-04-25 15:25 | XR ---
EXAMINATION TYPE: XR chest 1V portable DATE OF EXAM: 04/25/2019 CLINICAL HISTORY: Difficulty breathing and CHF progress study. TECHNIQUE: Single AP portable upright view of the chest is obtained. COMPARISON: Chest x-ray from September 01, 2018 FINDINGS: Cardiomegaly with atherosclerotic thoracic aorta redemonstrated. Osseous structures are de mineralized. Metallic hardware right clavicle level redemonstrated. Fusion plate near cervicothoracic junction again seen. Chronic left basilar opacity favoring scarring and/or atelectasis. No new focal airspace opacity, pleural effusion, or pneumothorax seen. IMPRESSION: Overall stable findings, chronic changes and cardiomegaly without new acute pulmonary p rocess.
--- NOTE | 2019-04-25 17:11 | HP ---
HISTORY AND PHYSICAL CHIEF COMPLAINTS: Change in mental status and vomiting. HISTORY OF PRESENT ILLNESS: This 79-year-old woman with the past medical history of multiple medical problems, including history of dementia, history of cognitive problems, MRSA, history of back surgery, DJD, being followed by Dr. Summers in the outpatient setting, has had previous episodes of multiple UTIs. The patient is living with family. The patient is being admitted with change in mental status and some vomiting. Because of lack of improvement in the vomiting, the patient is admitted for further evaluation and treatment UTI. Patient is started on IV antibiotics. As mentioned earlier, the patient had multiple episodes of UTI in the past. A detailed history cannot be taken from the patient because of the patient's baseline mental status. Most of the history is taken from my discussion with staff as well as the ER physician and review of the chart. The patient had urinary difficulties and retention and a Hagan catheter was inserted in the ER. PAST MEDICAL HISTORY: 1. History of dementia. 2. History of MRSA. 3. History of back surgery. 4. DJD. MEDICATIONS: Medications prior to admission include: 1. Coenzyme Q 100 mg p.o. daily. 2. Exelon 13.3 one patch daily. 3. Seroquel 25 mg at bedtime. 4. Prilosec 20 mg daily. 5. Fish oil 1 p.o. daily. 6. Aleve 440 mg p.o. daily. 7. Multivitamin 1 p.o. daily. 8. Namenda 10 mg p.o. b.i.d. 9. Melatonin 10 mg at bedtime. 10.Lexapro 20 mg at bedtime. 11.Dicyclomine 10 mg p.o. t.i.d. 12.Vitamin D3 1000 daily. 13.Lipitor 20 mg at bedtime. 14.Xanax 0.25 at bedtime. 15.Zofran 8 mg q.8 p.r.n. 16.Macrobid 100 mg p.o. b.i.d. ALLERGIES: ERYTHROMYCIN. FAMILY HISTORY: History of cancer in the family. SOCIAL HISTORY: Previous history of smoking per chart. REVIEW OF SYSTEMS: Review of systems could not be taken because of the patient's mental status. PHYSICAL EXAMINATION: The patient is confused. Pulse 65, blood pressure 144/78, respiration 16, temperature 98.1, pulse ox 92% on room air. HEENT: Conjunctivae normal. Oral mucosa moist. NECK: No jugular venous distention. No carotid bruit. No lymph node enlargement. CARDIOVASCULAR SYSTEM: S1, S2 muffled. No S3. No S4. RESPIRATORY SYSTEM: Breath sounds diminished at the bases. A few crackles. ABDOMEN: Soft, non-tender. No mass palpable. Hagan catheter in situ. LEGS: No edema. No swelling. NERVOUS SYSTEM: Higher functions as mentioned earlier. Moves all 4 limbs. No focal motor or sensory deficit. LYMPHATICS: No lymph node palpable in neck, axillae or groin. SKIN: No ulcer, rash, bleeding. JOINTS: No active deforming arthropathy. LABS: CBC within normal limits. Glucose 108. UA noted. ASSESSMENT: 1. Acute urinary tract infection with sepsis, present on admission. 2. Change in mental status, metabolic encephalopathy, acute, secondary to sepsis. 3. Urinary retention, status post Hagan catheter insertion. 4. History of dementia. 5. History of methicillin-resistant Staphylococcus aeruginosa. 6. History of back pain and degenerative joint disease. 7. Remote history of nicotine dependence. 8. FULL CODE. RECOMMENDATIONS AND DISCUSSION: In this 79-year-old woman who presented with multiple medical issues, we will monitor the patient closely, continue the current medications, continue symptomatic treatment. Otherwise, I would recommend broad-spectrum IV antibiotics. Obtain the cultures. Resume the home medications. The prognosis is guarded because of multiple complex medical issues. Further recommendations to follow. Discussed with the patient and the family, who understands and agrees. A copy of this dictation is being forwarded to Dr. Summers, who is the primary physician. MMODL / IJN: [id number] / [facility]
[2019-04-25] MEDS: THIAMINE 100 MG TAB PO SCH (18:21)
[2019-04-25] MEDS: NAPROXEN 250 MG TAB PO SCH (18:21)
[2019-04-25] MEDS: DICYCLOMINE 10 MG CAP PO SCH ×2 (18:21→21:19)
[2019-04-25] MEDS: RIVASTIGMINE 13.3MG/24HR PATCH TRANSDERM SCH (18:21)
[2019-04-25] MEDS: HEPARIN SODIUM,PORCINE 5,000 UNIT/ML 1 ML VIAL SQ SCH (21:19)
[2019-04-26] MEDS: THIAMINE 100 MG TAB PO SCH ×2 (08:55→18:53)
[2019-04-26] MEDS: MULTIVITAMINS, THERA 1 EACH TAB PO SCH (08:55)
[2019-04-26] MEDS: CHOLECALCIFEROL 1,000 UNIT TAB PO SCH (08:55)
[2019-04-26] MEDS: MEMANTINE 10 MG TAB PO SCH ×2 (08:55→21:06)
[2019-04-26] MEDS: PANTOPRAZOLE 40 MG TABLET PO SCH (08:55)
[2019-04-26] MEDS: HEPARIN SODIUM,PORCINE 5,000 UNIT/ML 1 ML VIAL SQ SCH ×2 (08:55→21:06)
[2019-04-26] MEDS: NAPROXEN 250 MG TAB PO SCH (08:56)
[2019-04-26] MEDS: RIVASTIGMINE 13.3MG/24HR PATCH TRANSDERM SCH (08:56)
[2019-04-26] MEDS: DICYCLOMINE 10 MG CAP PO SCH ×3 (08:56→21:06)
[2019-04-26] MEDS ORDERED: NON FORMULARY DRUG (Omega-3 Fatty Acids/Fish Oil [Fish Oil 1,000 Mg Softgel] 1 CAP) PO SCH (09:00)
[2019-04-26] MEDS ORDERED: NON FORMULARY DRUG (Omeprazole 20 MG) PO SCH (09:00)
[2019-04-26] MEDS: FOLIC ACID 1 MG TAB PO SCH (15:00)
[2019-04-26] MEDS: SODIUM CHLORIDE 0.9% 1,000 ML IV SCH (18:54)
--- NOTE | 2019-04-26 19:51 | PN ---
PROGRESS NOTE DATE OF SERVICE: 04/26/2019 This 79-year-old woman who was admitted after acute urinary tract infection with possible sepsis also had change in mental status. Patient being closely monitored. Cultures are pending at this time. No fever. No cough. Chest x-ray showed overall stable findings. EXAM: Alert and oriented x1. Pulse 68, blood pressure 160/76, respirations 16, temp 98.2, pulse ox 97% on room air. HEENT: Conjunctivae normal. Oral mucosa moist. NECK: No jugular venous distention. No lymph node enlargement. CARDIOVASCULAR: S1, S2. RESPIRATORY: Diminished breath sounds at the bases. Bilateral scattered rhonchi, no crackles. ABDOMEN: Soft, nontender. LEGS: No swelling. NERVOUS SYSTEM: Mild diffuse weakness. LABS: CBC and BMP noted. Otherwise, UA noted. ASSESSMENT: 1. Acute urinary tract infection with possible sepsis, present on admission. 2. Change in mental status, metabolic encephalopathy, acute on chronic secondary to sepsis. 3. Urinary retention status post Hagan catheter insertion. 4. History of dementia. 5. History of MRSA. 6. History of back pain, degenerative joint disease. 7. Remote history of nicotine dependence. 8. FULL CODE. RECOMMENDATIONS AND DISCUSSION: Recommend to continue current management, continue symptomatic treatment, continue the antibiotics. Continue to monitor. Otherwise, follow the cultures. Continue the rest of medication. DVT prophylaxis. Prognosis guarded. Further recommendations to follow. MMODL / IJN: [id number] /
[2019-04-26] MEDS: MELATONIN 5 MG TABLET PO SCH (21:06)
[2019-04-26] MEDS: ATORVASTATIN 20 MG TAB PO SCH (21:06)
[2019-04-26] MEDS: ESCITALOPRAM 20 MG TAB PO SCH (21:06)
[2019-04-26] MEDS: ALPRAZolam 0.25 MG TAB PO SCH (21:06)
[2019-04-26] MEDS: QUEtiapine 25 MG TAB PO SCH (21:06)
[2019-04-27] MEDS: MEMANTINE 10 MG TAB PO SCH (07:53)
[2019-04-27] MEDS: DICYCLOMINE 10 MG CAP PO SCH ×2 (07:53→13:08)
[2019-04-27] MEDS: PANTOPRAZOLE 40 MG TABLET PO SCH (07:53)
[2019-04-27] MEDS: MULTIVITAMINS, THERA 1 EACH TAB PO SCH (07:53)
[2019-04-27] MEDS: THIAMINE 100 MG TAB PO SCH (07:53)
[2019-04-27] MEDS: CHOLECALCIFEROL 1,000 UNIT TAB PO SCH (07:53)
[2019-04-27] MEDS: NAPROXEN 250 MG TAB PO SCH (07:54)
[2019-04-27] MEDS: HEPARIN SODIUM,PORCINE 5,000 UNIT/ML 1 ML VIAL SQ SCH (07:54)
[2019-04-27] MEDS: RIVASTIGMINE 13.3MG/24HR PATCH TRANSDERM SCH (07:55)
--- NOTE | 2019-04-27 13:00 | P.DS ---
Providers Date of admission: 04/24/19 18:41 Attending physician: Sridevi Leblanc Primary care physician: Maulik [facility] Course: 71-year-old black female with known history of dementia is admitted with the confusion probably related to her medications was treated for urinary tract infection with 3 days of antibiotics all the urine cultures are not consistent with urinary tract infection patient already received 2 days of antibiotics because of which I do not believe patient will require any more antibiotics to be discharged on. Patient was having nausea vomiting as well which I believe is secondary to gastritis I'll increase the dose of omeprazole to 40 mg daily and patient will use only Tylenol for pain and discontinue and nonsteroidal anti- inflammatories. Patient can be discharged today. Patient's altered mental status is secondary to polypharmacy including Xanax and Bentyl.Bentyl will be made when necessary. PHYSICAL EXAMINATION: GENERAL: The patient is alert and oriented x3, not in any acute distress. Well developed, well nourished. HEENT: Pupils are round and equally reacting to light. EOMI. No scleral icterus. No conjunctival pallor. Normocephalic, atraumatic. No pharyngeal erythema. No thyromegaly. CARDIOVASCULAR: S1 and S2 present. No murmurs, rubs, or gallops. PULMONARY: Chest is clear to auscultation, no wheezing or crackles. ABDOMEN: Soft, nontender, nondistended, normoactive bowel sounds. No palpable organomegaly. MUSCULOSKELETAL: No joint swelling or deformity. EXTREMITIES: No cyanosis, clubbing, or pedal edema. NEUROLOGICAL: Gross neurological examination did not reveal any focal deficits. SKIN: No rashes. the rest of the chronic medical problems hospice physician course please refer to dictation a progress note from Dr. Leblanc from yesterday. Patient Condition at Discharge: Stable Plan - Discharge Summary Discharge Rx Participant: No New Discharge Prescriptions: New Ondansetron Odt [Zofran Odt] 8 mg PO Q8HR PRN #10 tab PRN Reason: Nausea Acetaminophen Tab [Tylenol] 650 mg PO Q6HR PRN #30 tab PRN Reason: Mild Pain Or Fever > 100.5 Omeprazole [PriLOSEC] 40 mg PO AC-BRKFST #30 capsule. Continue Multivitamins, Thera [Multivitamin (formulary)] 1 tab PO DAILY Rivastigmine [Exelon 13.3MG/24Hr Patch] 1 patch TRANSDERM DAILY Memantine [Namenda] 10 mg PO BID Dicyclomine HCl 10 mg PO TID QUEtiapine [SEROquel] 25 mg PO HS Escitalopram [Lexapro] 20 mg PO HS Melatonin 10 mg PO HS Ubidecarenone [Co Q-10] 100 mg PO DAILY [place]-3 Fatty Acids/Fish Oil [Fish Oil 1,000 mg Softgel] 1 cap PO DAILY Cholecalciferol [Vitamin D3 (25 Mcg = 1000 Iu)] 1,000 unit PO DAILY Atorvastatin [Lipitor] 20 mg PO HS Discontinued Omeprazole [PriLOSEC] 20 mg PO DAILY Naproxen Sodium [Aleve] 440 mg PO DAILY ALPRAZolam [Xanax] 0.25 mg PO HS Discharge Medication List Multivitamins, Thera [Multivitamin (formulary)] 1 tab PO DAILY 07/30/16 [History] Memantine [Namenda] 10 mg PO BID 02/28/18 [History] Rivastigmine [Exelon 13.3MG/24Hr Patch] 1 patch TRANSDERM DAILY 02/28/18 [History] Dicyclomine HCl 10 mg PO TID 09/01/18 [History] Escitalopram [Lexapro] 20 mg PO HS 09/01/18 [History] Melatonin 10 mg PO HS 09/01/18 [History] QUEtiapine [SEROquel] 25 mg PO HS 09/01/18 [History] Ubidecarenone [Co Q-10] 100 mg PO DAILY 12/09/18 [History] Atorvastatin [Lipitor] 20 mg PO HS 04/24/19 [History] Cholecalciferol [Vitamin D3 (25 Mcg = 1000 Iu)] 1,000 unit PO DAILY 04/24/19 [History] Bradley-3 Fatty Acids/Fish Oil [Fish Oil 1,000 mg Softgel] 1 cap PO DAILY 04/24/19 [History] Ondansetron Odt [Zofran Odt] 8 mg PO Q8HR PRN #10 tab 04/24/19 [Rx] Acetaminophen Tab [Tylenol] 650 mg PO Q6HR PRN #30 tab 04/27/19 [Rx] Omeprazole [PriLOSEC] 40 mg PO AC-JUSTINKFST #30 capsule. 04/27/19 [Rx] Follow up Appointment(s)/Referral(s): Maulik Summers III, MD [Primary Care Provider] - 1-2 days [facility], [NON-STAFF] - As Needed Patient Instructions/Handouts: Urinary Tract Infection in Older Adults (ED) Activity/Diet/Wound Care/Special Instructions: Please follow-up with primary care physician in the next couple days for recheck. Return for altered mental status, fevers, persistent vomiting, worsening symptoms or any other concerns. Prescription has been sent to [facility] on
[2019-04-27] MEDS: FOLIC ACID 1 MG TAB PO SCH (13:08)
[2019-04-27] MEDS: SODIUM CHLORIDE 0.9% 1,000 ML IV SCH (13:08)
[2019-04-27 15:39] VITALS: BP 152/81; PULSE 69; RESP 16; TEMP 97.4
== END 2019-04-27 18:40 | disposition home health service (06) | DRG 871 ==
LOC: EC 14:12 → 4SSUR 18:41 → OBSVTOIN 04-26 15:32
PROVIDERS: ADMIT Hospitalist; ATTEND Hospitalist
DX: A41.9 Sepsis, unspecified organism (principal); G92 Toxic encephalopathy; Z16.24 Resistance to multiple antibiotics; F03.90 Unspecified dementia, unspecified severity, without behavioral disturbance, psychotic disturbance, mood disturbance, and anxiety; M19.90 Unspecified osteoarthritis, unspecified site; Z79.899 Other long term (current) drug therapy; Z80.9 Family history of malignant neoplasm, unspecified; Z82.49 Family history of ischemic heart disease and other diseases of the circulatory system; Z86.14 Personal history of Methicillin resistant Staphylococcus aureus infection; Z87.440 Personal history of urinary (tract) infections; Z87.891 Personal history of nicotine dependence; Z88.1 Allergy status to other antibiotic agents; K29.70 Gastritis, unspecified, without bleeding; T42.4X5A Adverse effect of benzodiazepines, initial encounter; T44.3X5A Adverse effect of other parasympatholytics [anticholinergics and antimuscarinics] and spasmolytics, initial encounter
CPT/HCPCS: 36415; 71045; 80048; 81001; 85025; 87040; 87086; 96374; 96375; 99285

== ENCOUNTER 2019-04-29 17:12 | Inpatient (IN) | payer MEDICARE ==
[2019-04-29] MEDS ORDERED: ACETAMINOPHEN TAB 325 MG TAB PO STA (17:30)
[2019-04-29] MEDS ORDERED: SODIUM CHLORIDE 0.9% 500 ML 500 ML IV STA (17:30)
--- NOTE | 2019-04-29 18:02 | ED ---
General Adult HPI - General Source: patient, family, RN notes reviewed, old records reviewed Mode of arrival: wheelchair Limitations: no limitations <Neal Etienne - Last Filed: 04/29/19 19:27> <Uriah Stewart - Last Filed: 04/29/19 19:38> - General Chief complaint: Fever Stated complaint: fever, trouble walking Time Seen by Provider: 04/29/19 17:26 - History of Present Illness Initial comments: 79-year-old female patient with past history significant for dementia presents ED for fever, decreased energy. History is provided by daughter and son who report the patient was recently discharged from hospital for urinary tract infection. Therefore the patient had decreased energy compared to her usual baseline today. Was running a fever approximately 101F. Patient does denies any complaints. Denies any nausea or vomiting. Systemic: Pt denies fatigue, fever/chills, rash. Pt denies weakness, night sweat s, weight loss. Neuro: Pt denies headache, visual disturbances, syncope or pre-syncope. HEENT: Pt denies ocular discharge or irritation, otalgia, rhinorrhea, pharyngitis or notable lymphadenopathy. Cardiopulmonary: Pt denies chest pain, SOB, heart palpitations, dyspnea on exertion. Abdominal/GI: Pt denies abdominal pain, n/v/d. : Pt denies dysuria, burning w/ urination, frequency/urgency. Denies new onset urinary or bowel incontinence. MSK: Pt denies myalgia, loss of strength or function in extremities. Neuro: Pt denies new (Neal Etienne) - Related Data Home Medications Medication Instructions Recorded Confirmed Multivitamins, Thera [Multivitamin 1 tab PO DAILY 07/30/16 04/29/19 (formulary)] Memantine [Namenda] 10 mg PO BID 02/28/18 04/29/19 Rivastigmine [Exelon 13.3MG/24Hr 1 patch TRANSDERM DAILY 02/28/18 04/29/19 Patch] Escitalopram [Lexapro] 20 mg PO HS 09/01/18 04/29/19 Melatonin 10 mg PO HS 09/01/18 04/29/19 QUEtiapine [SEROquel] 25 mg PO HS 09/01/18 04/29/19 Ubidecarenone [Co Q-10] 100 mg PO DAILY 12/09/18 04/29/19 Atorvastatin [Lipitor] 20 mg PO HS 04/24/19 04/29/19 Cholecalciferol [Vitamin D3 (25 1,000 unit PO DAILY 04/24/19 04/29/19 Mcg = 1000 Iu)] [place]-3 Fatty Acids/Fish Oil [Fish 1 cap PO DAILY 04/24/19 04/29/19 Oil 1,000 mg Softgel] ALPRAZolam [Xanax] 0.25 mg PO DAILY PRN 04/29/19 04/29/19 Naproxen Sodium [Aleve] 440 mg PO Q12H PRN 04/29/19 04/29/19 Nitrofurantoin Monohyd/M-Cryst 100 mg PO Q12HR 04/29/19 04/29/19 [Macrobid] Previous Rx's Medication Instructions Recorded Ondansetron Odt [Zofran Odt] 8 mg PO Q8HR PRN #10 tab 04/24/19 Acetaminophen Tab [Tylenol] 650 mg PO Q6HR PRN #30 tab 04/27/19 Dicyclomine HCl 10 mg PO TID PRN #0 04/27/19 Omeprazole [PriLOSEC] 40 mg PO AC-BRKFST #30 capsule. 04/27/19 Allergies Allergy/AdvReac Type Severity Reaction Status Date / Time erythromycin base Allergy Unknown Verified 04/29/19 17:44 [From Erythrocin] Sulfa (Sulfonamide Allergy Rash/Hives,difficulty Verified 04/29/19 17:44 Antibiotics) breathing Review of Systems ROS Other: All systems not noted in ROS Statement are negative. <Neal Etienne - Last Filed: 04/29/19 19:27> ROS Other: All systems not noted in ROS Statement are negative. <Uriah Stewart - Last Filed: 04/29/19 19:38> ROS Statement: Those systems with pertinent positive or pertinent negative responses have been documented in the HPI. Past Medical History Past Medical History: Chest Pain / Angina, Dementia Additional Past Medical History / Comment(s): cognitive problems per son History of Any Multi-Drug Resistant Organisms: MRSA Date of last positivie culture/infection: 2012 MDRO Source:: THROAT Past Surgical History: Back Surgery, Joint Replacement Additional Past Surgical History / Comment(s): jas knees,carpal tunnel,neck surgery, rt shoulder Past Anesthesia/Blood Transfusion Reactions: No Reported Reaction Past Psychological History: No Psychological Hx Reported Smoking Status: Former smoker Past Alcohol Use History: Rare Past Drug Use History: None Reported - Past Family History Father Family Medical History: Cancer Mother Family Medical History: Cancer Sister(s) Family Medical History: Myocardial Infarction ([place]) <Neal Etienne - Last Filed: 04/29/19 19:27> General Exam Limitations: no limitations <Neal Etienne - Last Filed: 04/29/19 19:27> - General Exam Comments Initial Comments: Constitutional: NAD, AOX3, Pt has pleasant affect. HEENT: NC/AT, trachea midline, neck supple, no lymphadenopathy. Posterior pharynx non erythematous, without exudates. External ears appear normal, without discharge. Mucous membranes moist. Eyes PERRLA, EOM intact. There is no scleral icterus. No pallor noted. Cardiopulmonary: RRR, no murmurs, rubs or gallops, no JVD noted. Lungs CTAB in anterior and posterior barron. No peripheral edema. Abdominal exam: Abdomen soft and non-distended. Abdomen non-tender to palpation in all 4 quadrants. Bowel sounds active in LLQ. No hepatosplenomegaly. No ecchymosis Neuro: CN II-XII intact. No nuchal rigidity. No raccon eyes, no estrella sign, no hemotympanum. No cervical spinal tenderness. MSK: No posterior calf tenderness bilaterally, homans sign negative bilaterally. Posterior tibialis and radial pulse +2 bilaterally. Sensation intact in upper and lower extremities. Full active ROM in upper and lower extremities, 5/5 stregnth. (Neal Etienne) Course <Uriah Stewart - Last Filed: 04/29/19 19:38> Vital Signs 04/29/19 04/29/19 17:20 19:25 Temperature 100.4 F H 99.0 F Pulse Rate 104 H 75 Respiratory 18 15 Rate Blood Pressure 145/69 145/57 O2 Sat by Pulse 98 93 L Oximetry - Reevaluation(s) Reevaluation #1: 04/29/19 19:37 PA supervision: I proceeded [id number] evaluation the patient did discuss the findings with the patient's family she did present with complaints of new onset of fever this morning of just below 10 2F. She has some change in her mental status she complains some body pain and aches. This has since resolved though she does seem more lucid per family members. She was recently admitted and discharged for a UTI. No symptoms reported the lab work thus far is unremarkable except for the elevated blood cell count with a left shift. Reevaluation the patient will be admitted for evaluation of fever of unknown origin confusion and failure to thrive. He case will be discussed with Dr. Torres (Uriah Stewart) Medical Decision Making - Lab Data Result diagrams: 04/29/19 17:45 04/29/19 17:45 - EKG Data -: EKG Interpreted by Me (and Dr. Stewart) <Neal Etienne - Last Filed: 04/29/19 19:27> - Lab Data Result diagrams: 04/29/19 17:45 04/29/19 17:45 <Uriah Stewart - Last Filed: 04/29/19 19:38> - Medical Decision Making 71-year-old female patient with CVG complaint of decreased energy one day. Recently admitted for urinary tract infection. Patient vital signs did display mild fever here patient administered antipyretic. Physical exam did not display acute pathology. Laboratory investigations nonimmpressive. EKG not concerning for acute ischemia. Patient admitted for fever unknown origin, dehydration. Case discussed and patient seen by Dr. Stewart. (Neal Etienne) - Lab Data Lab Results 04/29/19 04/29/19 04/29/19 Range/Units 17:45 17:45 17:45 WBC 15.6 H (3.8-10.6) k/uL RBC 4.14 (3.80-5.40) m/uL Hgb 12.9 (11.4-16.0) gm/dL Hct 37.1 (34.0-46.0) % MCV 89.5 (80.0-100.0) fL MCH 31.1 (25.0-35.0) pg MCHC 34.8 (31.0-37.0) g/dL RDW 13.1 (11.5-15.5) % Plt Count 203 (150-450) k/uL Neutrophils % 91 % Lymphocytes % 4 % Monocytes % 2 % Eosinophils % 1 % Basophils % 0 % Neutrophils # 14.2 H (1.3-7.7) k/uL Lymphocytes # 0.7 L (1.0-4.8) k/uL Monocytes # 0.4 (0-1.0) k/uL Eosinophils # 0.2 (0-0.7) k/uL Basophils # 0.1 (0-0.2) k/uL Sodium 136 L (137-145) mmol/L Potassium 3.8 (3.5-5.1) mmol/L Chloride 101 (98-107) mmol/L Carbon Dioxide 27 (22-30) mmol/L Anion Gap 8 mmol/L BUN 14 (7-17) mg/dL Creatinine 0.49 L (0.52-1.04) mg/dL Est GFR (CKD-EPI)AfAm >90 (>60 ml/min/1.73 sqM) Est GFR (CKD-EPI)NonAf >90 (>60 ml/min/1.73 sqM) Glucose 123 H (74-99) mg/dL Plasma Lactic Acid Derrick 2.0 (0.7-2.0) mmol/L Calcium 9.1 (8.4-10.2) mg/dL Total Bilirubin 0.9 (0.2-1.3) mg/dL AST 37 H (14-36) U/L ALT 14 (9-52) U/L Alkaline Phosphatase 58 (38-126) U/L Troponin I (0.000-0.034) ng/mL Total Protein 6.4 (6.3-8.2) g/dL Albumin 3.7 (3.5-5.0) g/dL Urine Color Urine Appearance (Clear) Urine pH (5.0-8.0) Ur Specific [place] (1.001-1.035) Urine Protein (Negative) Urine Glucose (UA) (Negative) Urine Ketones (Negative) Urine Blood (Negative) Urine Nitrite (Negative) Urine Bilirubin (Negative) Urine Urobilinogen (<2.0) mg/dL Ur Leukocyte Esterase (Negative) Influenza Type A RNA (Not Detectd) Influenza Type B (PCR) (Not Detectd) 04/29/19 04/29/19 04/29/19 Range/Units 17:45 17:45 17:45 WBC (3.8-10.6) k/uL RBC (3.80-5.40) m/uL Hgb (11.4-16.0) gm/dL Hct (34.0-46.0) % MCV (80.0-100.0) fL MCH (25.0-35.0) pg MCHC (31.0-37.0) g/dL RDW (11.5-15.5) % Plt Count (150-450) k/uL Neutrophils % % Lymphocytes % % Monocytes % % Eosinophils % % Basophils % % Neutrophils # (1.3-7.7) k/uL Lymphocytes # (1.0-4.8) k/uL Monocytes # (0-1.0) k/uL Eosinophils # (0-0.7) k/uL Basophils # (0-0.2) k/uL Sodium (137-145) mmol/L Potassium (3.5-5.1) mmol/L Chloride (98-107) mmol/L Carbon Dioxide (22-30) mmol/L Anion Gap mmol/L BUN (7-17) mg/dL Creatinine (0.52-1.04) mg/dL Est GFR (CKD-EPI)AfAm (>60 ml/min/1.73 sqM) Est GFR (CKD-EPI)NonAf (>60 ml/min/1.73 sqM) Glucose (74-99) mg/dL Plasma Lactic Acid Derrick (0.7-2.0) mmol/L Calcium (8.4-10.2) mg/dL Total Bilirubin (0.2-1.3) mg/dL AST (14-36) U/L ALT (9-52) U/L Alkaline Phosphatase (38-126) U/L Troponin I <0.012 (0.000-0.034) ng/mL Total Protein (6.3-8.2) g/dL Albumin (3.5-5.0) g/dL Urine Color Yellow Urine Appearance Clear (Clear) Urine pH 7.0 (5.0-8.0) Ur Specific [place] 1.018 (1.001-1.035) Urine Protein Trace H (Negative) Urine Glucose (UA) Negative (Negative) Urine Ketones Negative (Negative) Urine Blood Negative (Negative) Urine Nitrite Negative (Negative) Urine Bilirubin Negative (Negative) Urine Urobilinogen 2.0 (<2.0) mg/dL Ur Leukocyte Esterase Negative (Negative) Influenza Type A RNA Not Detected (Not Detectd) Influenza Type B (PCR) Not Detected (Not Detectd) - EKG Data EKG Comments: Ventricular rate 91, MS interval 182, QRS 76, QT/QTC 378/464. Normal sinus rhythm, nonspecific ST and T wave noted. Abnormal EKG. No concern for acute ischemia at this time. (Neal Etienne) Disposition Is patient prescribed a controlled substance at d/c from ED?: No <Neal Etienne - Last Filed: 04/29/19 19:27> <Uriah Stewart - Last Filed: 04/29/19 19:38> Clinical Impression: Fever of unknown origin, Dehydration Disposition: ADMITTED IP TO THIS HOSP Condition: Serious Referrals: Maulik Summers III, MD [Primary Care Provider] - 1-2 days
[2019-04-29 18:23] LABS: Appearance,Urine Clear (Clear); Bilirubin,Urine Negative (Negative); Blood,Urine Negative (Negative); Color,Urine Yellow; Glucose,Urine (UA) Negative (Negative); Ketones,Urine Negative (Negative); Leukocyte Esterase,Urine Negative (Negative); Nitrite,Urine Negative (Negative); Protein,Urine Trace (Negative); Specific Gravity,Urine 1.018 (1.001-1.035)
[2019-04-29 18:24] LABS: Basophils # (A) 0.1 k/uL (0-0.2); Basophils % (A) 0 %; Eosinophils # (A) 0.2 k/uL (0-0.7); Eosinophils % (A) 1 %; HCT 37.1 % (34.0-46.0); HGB 12.9 gm/dL (11.4-16.0); Lymphocytes # (A) 0.7 k/uL (1.0-4.8); Lymphocytes % (A) 4 %; MCH 31.1 pg (25.0-35.0); MCHC 34.8 g/dL (31.0-37.0); MCV 89.5 fL (80.0-100.0); Mean Platelet Volume 6.8; Monocytes # (A) 0.4 k/uL (0-1.0); Monocytes % (A) 2 %; Neutrophils # (A) 14.2 k/uL (1.3-7.7); Neutrophils % (A) 91 %; Platelet Count 203 k/uL (150-450); RBC 4.14 m/uL (3.80-5.40); RDW 13.1 % (11.5-15.5); WBC 15.6 k/uL (3.8-10.6)
[2019-04-29 18:35] LABS: ALT 14 U/L (9-52); AST 37 U/L (14-36); African American GFR (CKD) >90 (>60 ml/min/1.73 sqM); Albumin 3.7 g/dL (3.5-5.0); Alkaline Phosphatase 58 U/L (38-126); Anion Gap 8 mmol/L; Blood Urea Nitrogen 14 mg/dL (7-17); Calcium 9.1 mg/dL (8.4-10.2); Carbon Dioxide 27 mmol/L (22-30); Chloride 101 mmol/L (98-107); Glucose 123 mg/dL (74-99); Non-African American GFR(CKD) >90 (>60 ml/min/1.73 sqM); Sodium 136 mmol/L (137-145); Total Bilirubin 0.9 mg/dL (0.2-1.3); Total Protein 6.4 g/dL (6.3-8.2)
[2019-04-29 18:36] LABS: Potassium 3.8 mmol/L (3.5-5.1)
--- NOTE | 2019-04-29 18:54 | XR ---
EXAMINATION TYPE: XR chest 2V DATE OF EXAM: 04/29/2019 COMPARISON: 04/25/2019 HISTORY: Fever TECHNIQUE: Frontal and lateral views of the chest are obtained. FINDINGS: There is some mild pleural reaction and atelectasis left lung base. There is no heart fail ure. There are no hilar masses. Mediastinum is normal. IMPRESSION: There is improvement in the pleural reaction and atelectasis left lung base compared to recent exam. No heart failure seen. Normal heart.
[2019-04-29] MEDS ORDERED: ACETAMINOPHEN TAB 325 MG TAB PO PRN (19:30)
[2019-04-29] MEDS ORDERED: NALOXONE 0.4 MG/ML 1 ML VIAL IV PRN (19:30)
[2019-04-29] MEDS ORDERED: VANCOMYCIN IV PER PHARMACY 1 EACH MISC MISCELLANE PRN (19:45)
[2019-04-29] MEDS ORDERED: VANCOMYCIN 1,750 MG in SODIUM CHLORIDE 0.9% 500 ML 500 ML IVPB STA (19:51)
[2019-04-29] MEDS: SODIUM CHLORIDE 0.9% 1,000 ML IV SCH (20:14)
[2019-04-29] MEDS ORDERED: NAPROXEN 250 MG TAB PO PRN (21:01)
[2019-04-29] MEDS ORDERED: ALPRAZolam 0.25 MG TAB PO PRN (21:01)
[2019-04-29] MEDS: QUEtiapine 25 MG TAB PO SCH (21:48)
[2019-04-29] MEDS: ATORVASTATIN 20 MG TAB PO SCH (21:48)
[2019-04-29] MEDS: MEMANTINE 10 MG TAB PO SCH (21:48)
[2019-04-29] MEDS: ESCITALOPRAM 20 MG TAB PO SCH (21:48)
[2019-04-29] MEDS: MELATONIN 5 MG TABLET PO SCH (21:48)
[2019-04-30] MEDS: SODIUM CHLORIDE 0.9% 1,000 ML IV SCH ×2 (05:27→17:00)
[2019-04-30 08:07] LABS: African American GFR (CKD) >90 (>60 ml/min/1.73 sqM); Non-African American GFR(CKD) >90 (>60 ml/min/1.73 sqM)
[2019-04-30] MEDS ORDERED: VANCOMYCIN 1,500 MG in SODIUM CHLORIDE 0.9% 250 ML IVPB SCH (09:00)
[2019-04-30] MEDS: MEMANTINE 10 MG TAB PO SCH ×2 (09:29→21:10)
[2019-04-30] MEDS ORDERED: ACETAMINOPHEN TAB 325 MG TAB PO PRN (10:36)
[2019-04-30] MEDS ORDERED: ONDANSETRON ODT 8 MG TAB.RAPDIS PO PRN (12:52)
--- NOTE | 2019-04-30 12:56 | P.HPIM ---
History of Present Illness 71-year-old pleasant female was recently discharged from the hospital. During her last aspiration patient was admitted for possible urinary tract infection although I do not believe patient has UTI and patient antibiotics were subse quently discontinued after to 3 days of Rocephin and patient was subsequently discharged , urine cultures at the time of negative comes back again with high- grade fever and fatigue patient denied any significant cough denied any diarrhea denied any headache photophobia. Patient denied any flulike symptoms influenza testing is negative chest x-ray did not show any pneumonic process urease within normal limits. Patient had MRSA UTI in the past probably because of that reason patient was started on vancomycin by ER. Although there is no evidence of staphylococcal infection or a gram-positive infection at this time. There is no cellulitis. Source of this fever is unknown will monitor her one more night and also get the opinion of infectious disease. Patient does have leukocytosis. Patient also is feeling much better today wanted to go home. Review of Systems REVIEW OF SYSTEMS: CONSTITUTIONAL: As mentioned in HPI HEENT: No recent visual problems or hearing problems. Denied any sore throat. CARDIOVASCULAR: No chest pain, orthopnea, PND, no palpitations, no syncope. PULMONARY: No shortness of breath, no cough, no hemoptysis. GASTROINTESTINAL: No diarrhea, no nausea, no vomiting, no abdominal pain. NEUROLOGICAL: No headaches, no weakness, no numbness. HEMATOLOGICAL: Denies any bleeding or petechiae. GENITOURINARY: Denies any burning micturition, frequency, or urgency. MUSCULOSKELETAL/RHEUMATOLOGICAL: Denies any joint pain, swelling, or any muscle pain. ENDOCRINE: Denies any polyuria or polydipsia. The rest of the 14-point review of systems is negative. Past Medical History Past Medical History: Chest Pain / Angina, Dementia Additional Past Medical History / Comment(s): cognitive problems per son History of Any Multi-Drug Resistant Organisms: MRSA Date of last positivie culture/infection: 2012 MDRO Source:: THROAT Past Surgical History: Back Surgery, Joint Replacement Additional Past Surgical History / Comment(s): jas knees,carpal tunnel,neck surgery, rt shoulder Past Anesthesia/Blood Transfusion Reactions: No Reported Reaction Past Psychological History: No Psychological Hx Reported Smoking Status: Former smoker Past Alcohol Use History: Rare Past Drug Use History: None Reported - Past Family History Father Family Medical History: Cancer Mother Family Medical History: Cancer Sister(s) Family Medical History: Myocardial Infarction ([place]) Medications and Allergies Home Medications Medication Instructions Recorded Confirmed Type Multivitamins, Thera [Multivitamin 1 tab PO DAILY 07/30/16 04/29/19 History (formulary)] Memantine [Namenda] 10 mg PO BID 02/28/18 04/29/19 History Rivastigmine [Exelon 13.3MG/24Hr 1 patch TRANSDERM DAILY 02/28/18 04/29/19 History Patch] Escitalopram [Lexapro] 20 mg PO HS 09/01/18 04/29/19 History Melatonin 10 mg PO HS 09/01/18 04/29/19 History QUEtiapine [SEROquel] 25 mg PO HS 09/01/18 04/29/19 History Ubidecarenone [Co Q-10] 100 mg PO DAILY 12/09/18 04/29/19 History Atorvastatin [Lipitor] 20 mg PO HS 04/24/19 04/29/19 History Cholecalciferol [Vitamin D3 (25 1,000 unit PO DAILY 04/24/19 04/29/19 History Mcg = 1000 Iu)] [place]-3 Fatty Acids/Fish Oil [Fish 1 cap PO DAILY 04/24/19 04/29/19 History Oil 1,000 mg Softgel] Ondansetron Odt [Zofran Odt] 8 mg PO Q8HR PRN #10 tab 04/24/19 04/29/19 Rx Acetaminophen Tab [Tylenol] 650 mg PO Q6HR PRN #30 tab 04/27/19 04/29/19 Rx Dicyclomine HCl 10 mg PO TID PRN #0 04/27/19 04/29/19 Rx Omeprazole [PriLOSEC] 40 mg PO AC-BRKFST #30 capsule.dr 04/27/19 04/29/19 Rx ALPRAZolam [Xanax] 0.25 mg PO DAILY PRN 04/29/19 04/29/19 History Naproxen Sodium [Aleve] 440 mg PO Q12H PRN 04/29/19 04/29/19 History Nitrofurantoin Monohyd/M-Cryst 100 mg PO Q12HR 04/29/19 04/29/19 History [Macrobid] Allergies Allergy/AdvReac Type Severity Reaction Status Date / Time erythromycin base Allergy Unknown Verified 04/29/19 17:44 [From Erythrocin] Sulfa (Sulfonamide Allergy Rash/Hives,difficulty Verified 04/29/19 17:44 Antibiotics) breathing Physical Exam Vitals: Vital Signs Temp Pulse Pulse Resp BP BP Pulse Ox 04/30/19 12:12 98.6 F 70 16 128/60 95 04/30/19 08:30 72 18 04/30/19 04:42 98.9 F 72 18 139/67 96 04/30/19 00:00 18 04/29/19 21:02 98.4 F 71 18 145/72 96 04/29/19 20:09 98.2 F 60 15 136/61 94 L 04/29/19 19:25 99.0 F 75 15 145/57 93 L 04/29/19 17:20 100.4 F H 104 H 18 145/69 98 Intake and Output 04/29/19 04/30/19 04/30/19 22:59 06:59 14:59 Intake Total 1330 920 Balance 1330 920 Intake: Intake, IV Titration 850 800 Amount Sodium Chloride 0.9% 1, 300 800 000 ml @ 100 mls/hr IV . Q10H ИРИНА Rx#:[id number] Vancomycin 1,750 mg In 500 Sodium Chloride 0.9% 500 ml 500 ml @ 167 mls/hr IVPB ONCE STA Rx#: [id number] cefTRIAXone 1 gm In 50 Sodium Chloride 0.9% 50 ml @ 100 mls/hr IVPB ONCE STA Rx#:[id number] Oral 480 120 Other: # Voids 1 2 Weight 77.111 kg PHYSICAL EXAMINATION: GENERAL: The patient is alert and oriented x3, not in any acute distress. Well developed, well nourished. HEENT: Pupils are round and equally reacting to light. EOMI. No scleral icterus. No conjunctival pallor. Normocephalic, atraumatic. No pharyngeal erythema. No thyromegaly. CARDIOVASCULAR: S1 and S2 present. No murmurs, rubs, or gallops. PULMONARY: Chest is clear to auscultation, no wheezing or crackles. ABDOMEN: Soft, nontender, nondistended, normoactive bowel sounds. No palpable organomegaly. MUSCULOSKELETAL: No joint swelling or deformity. EXTREMITIES: No cyanosis, clubbing, or pedal edema. NEUROLOGICAL: Gross neurological examination did not reveal any focal deficits. SKIN: No rashes. Results CBC & Chem 7: 04/29/19 17:45 04/30/19 06:47 Labs: Abnormal Lab Results - Last 24 Hours (Table) 04/29/19 04/29/19 04/29/19 Range/Units 17:45 17:45 17:45 WBC 15.6 H (3.8-10.6) k/uL Neutrophils # 14.2 H (1.3-7.7) k/uL Lymphocytes # 0.7 L (1.0-4.8) k/uL Sodium 136 L (137-145) mmol/L Creatinine 0.49 L (0.52-1.04) mg/dL Glucose 123 H (74-99) mg/dL AST 37 H (14-36) U/L Urine Protein Trace H (Negative) 04/30/19 Range/Units 06:47 WBC (3.8-10.6) k/uL Neutrophils # (1.3-7.7) k/uL Lymphocytes # (1.0-4.8) k/uL Sodium (137-145) mmol/L Creatinine 0.50 L (0.52-1.04) mg/dL Glucose (74-99) mg/dL AST (14-36) U/L Urine Protein (Negative) Thrombosis Risk Factor Assmnt - Choose All That Apply Any of the Below Risk Factors Present?: Yes Each Factor Represents 1 point: Obesity (BMI >25) Other Risk Factors: Yes Each Risk Factor Represents 3 Points: Age 75 years or older Thrombosis Risk Factor Assessment Total Risk Factor Score: 4 Thrombosis Risk Factor Assessment Level: Moderate Risk Assessment and Plan Plan: Fever and systemic inflammatory response syndrome: Etiology is not clear probably generalized viral illness but now continue with antibiotics and infectious disease will be consulted. She will be monitored one more night as her last few was last night. She doesn't have any evidence of urinary tract infection clinically or biochemically. -History of her dementia for which patient is under my [facility] which will be continued -Depression -Hyperlipidemia -
[2019-04-30] MEDS: RIVASTIGMINE 13.3MG/24HR PATCH TRANSDERM SCH (13:37)
[2019-04-30] MEDS: MELATONIN 5 MG TABLET PO SCH (21:10)
[2019-04-30] MEDS: ESCITALOPRAM 20 MG TAB PO SCH (21:10)
[2019-04-30] MEDS: ATORVASTATIN 20 MG TAB PO SCH (21:11)
[2019-04-30] MEDS: QUEtiapine 25 MG TAB PO SCH (21:11)
--- NOTE | 2019-04-30 22:44 | P.CONS ---
History of Present Illness - Reason for Consult Consult date: 04/30/19 FUO Requesting physician: Meghann Urias - Chief Complaint Fever x 1 day - History of Present Illness Patient is a 79-year-old female who was recently admitted at this facility from April 24 till April 27 and the patient was treated for possible urinary tract infection patient blood and urine culture were negative patient has not been brought back to the hospital within 48-hour of discharge with a chief complaints of fever that started the day she presented to the hospital patient apparently did have a fever of 101 F, the patient denies having any headache or URI symptoms no chest pain shortness of breath or cough no nausea no vomiting no abdominal pain no diarrhea on arrival to the hospital to be did have low-grade fever of 100.8 she was noticed to have elevated white count 15,000 patient influenza serology was negative chest x-ray was negative for any consolidation and UA has been negative patient received vancomycin and Rocephin in the ER vancomycin was continued patient has been admitted to the hospital infectious disease was consulted for further recommendation regarding antibiotic therapy Review of Systems Positive point has been mentioned in HPI rest of the systems are negative Past Medical History Past Medical History: Chest Pain / Angina, Dementia Additional Past Medical History / Comment(s): cognitive problems per son History of Any Multi-Drug Resistant Organisms: MRSA Year Discovered:: 2012 MDRO Source:: THROAT Past Surgical History: Back Surgery, Joint Replacement Additional Past Surgical History / Comment(s): jas knees,carpal tunnel,neck surgery, rt shoulder Past Anesthesia/Blood Transfusion Reactions: No Reported Reaction Past Psychological History: No Psychological Hx Reported Smoking Status: Former smoker Past Alcohol Use History: Rare Past Drug Use History: None Reported - Past Family History Father Family Medical History: Cancer Mother Family Medical History: Cancer Sister(s) Family Medical History: Myocardial Infarction ([place]) Medications and Allergies Home Medications Medication Instructions Recorded Confirmed Type Multivitamins, Thera [Multivitamin 1 tab PO DAILY 07/30/16 04/29/19 History (formulary)] Memantine [Namenda] 10 mg PO BID 02/28/18 04/29/19 History Rivastigmine [Exelon 13.3MG/24Hr 1 patch TRANSDERM DAILY 02/28/18 04/29/19 History Patch] Escitalopram [Lexapro] 20 mg PO HS 09/01/18 04/29/19 History Melatonin 10 mg PO HS 09/01/18 04/29/19 History QUEtiapine [SEROquel] 25 mg PO HS 09/01/18 04/29/19 History Ubidecarenone [Co Q-10] 100 mg PO DAILY 12/09/18 04/29/19 History Atorvastatin [Lipitor] 20 mg PO HS 04/24/19 04/29/19 History Cholecalciferol [Vitamin D3 (25 1,000 unit PO DAILY 04/24/19 04/29/19 History Mcg = 1000 Iu)] [place]-3 Fatty Acids/Fish Oil [Fish 1 cap PO DAILY 04/24/19 04/29/19 History Oil 1,000 mg Softgel] Ondansetron Odt [Zofran Odt] 8 mg PO Q8HR PRN #10 tab 04/24/19 04/29/19 Rx Acetaminophen Tab [Tylenol] 650 mg PO Q6HR PRN #30 tab 04/27/19 04/29/19 Rx Dicyclomine HCl 10 mg PO TID PRN #0 04/27/19 04/29/19 Rx Omeprazole [PriLOSEC] 40 mg PO AC-BRKFST #30 capsule. 04/27/19 04/29/19 Rx ALPRAZolam [Xanax] 0.25 mg PO DAILY PRN 04/29/19 04/29/19 History Naproxen Sodium [Aleve] 440 mg PO Q12H PRN 04/29/19 04/29/19 History Nitrofurantoin Monohyd/M-Cryst 100 mg PO Q12HR 04/29/19 04/29/19 History [Macrobid] Allergies Allergy/AdvReac Type Severity Reaction Status Date / Time erythromycin base Allergy Unknown Verified 04/29/19 17:44 [From Erythrocin] Sulfa (Sulfonamide Allergy Rash/Hives,difficulty Verified 04/29/19 17:44 Antibiotics) breathing Physical Exam Vitals: Vital Signs Temp Pulse Pulse Resp BP BP Pulse Ox 04/30/19 12:12 98.6 F 70 16 128/60 95 04/30/19 08:30 72 18 04/30/19 04:42 98.9 F 72 18 139/67 96 04/30/19 00:00 18 04/29/19 21:02 98.4 F 71 18 145/72 96 04/29/19 20:09 98.2 F 60 15 136/61 94 L 04/29/19 19:25 99.0 F 75 15 145/57 93 L 04/29/19 17:20 100.4 F H 104 H 18 145/69 98 Intake and Output 04/29/19 04/30/19 04/30/19 22:59 06:59 14:59 Intake Total 1330 920 Balance 1330 920 Intake: Intake, IV Titration 850 800 Amount Sodium Chloride 0.9% 1, 300 800 000 ml @ 100 mls/hr IV . Q10H ИРИНА Rx#:[id number] Vancomycin 1,750 mg In 500 Sodium Chloride 0.9% 500 ml 500 ml @ 167 mls/hr IVPB ONCE STA Rx#: [id number] cefTRIAXone 1 gm In 50 Sodium Chloride 0.9% 50 ml @ 100 mls/hr IVPB ONCE STA Rx#:[id number] Oral 480 120 Other: # Voids 1 2 Weight 77.111 kg GENERAL DESCRIPTION elderly female lying in bed, no distress. No tachypnea or accessory muscle of respiration use. HEENT: Shows Pallor , no scleral icterus. Oral mucous membrane is dry. NECK: Trachea central, no thyromegaly. LUNGS: Unlabored breathing. Decreased breath sound at the base. No wheeze or crackle. HEART: S1, S2, regular rate and rhythm. ABDOMEN: Soft, no tenderness , guarding or rigidity EXTREMITIES: No edema of feet. SKIN: No rash, no masses palpable. NEUROLOGICAL: The patient is awake, alert, oriented x2, mood and affect normal. Results CBC & Chem 7: 04/29/19 17:45 04/30/19 06:47 Labs: Abnormal Lab Results - Last 24 Hours (Table) 04/29/19 04/29/19 04/29/19 Range/Units 17:45 17:45 17:45 WBC 15.6 H (3.8-10.6) k/uL Neutrophils # 14.2 H (1.3-7.7) k/uL Lymphocytes # 0.7 L (1.0-4.8) k/uL Sodium 136 L (137-145) mmol/L Creatinine 0.49 L (0.52-1.04) mg/dL Glucose 123 H (74-99) mg/dL AST 37 H (14-36) U/L Urine Protein Trace H (Negative) 04/30/19 Range/Units 06:47 WBC (3.8-10.6) k/uL Neutrophils # (1.3-7.7) k/uL Lymphocytes # (1.0-4.8) k/uL Sodium (137-145) mmol/L Creatinine 0.50 L (0.52-1.04) mg/dL Glucose (74-99) mg/dL AST (14-36) U/L Urine Protein (Negative) Assessment and Plan Assessment: Patient presented to the hospital with fever in this patient currently with no clear focus of infection with no URI symptoms chest x-ray has been negative influenza serology negative and UA has been negative abdominal was soft on clinical examination and no evidence of any cellulitis (1) Fever of unknown origin Current Visit: Yes Status: Acute Code(s): R50.9 - FEVER, UNSPECIFIED SNOMED Code(s): 7879306 Plan: 1- We will check a CRP and procalcitonin level. 2-repeat UA and a chest x-ray in the morning 3-we will discontinue the vancomycin to decrease risk of nephrotoxicity and clinical suspicion is low for MRSA infection 4-Rocephin 1 g daily while waiting for the work-up to finalize 5-Gentle IV fluid We will follow on clinical condition and cultures to further adjust medication if needed Thank you for this consultation we will follow the patient along with you Time with Patient: Greater than 30
[2019-05-01 00:02] LABS: Appearance,Urine Clear (Clear); Bilirubin,Urine Negative (Negative); Blood,Urine Negative (Negative); Color,Urine Light Yellow; Glucose,Urine (UA) Negative (Negative); Ketones,Urine Negative (Negative); Leukocyte Esterase,Urine Negative (Negative); Nitrite,Urine Negative (Negative); Protein,Urine Negative (Negative); Specific Gravity,Urine 1.004 (1.001-1.035); Urobilinogen,Urine <2.0 mg/dL (<2.0)
[2019-05-01] MEDS: SODIUM CHLORIDE 0.9% 1,000 ML IV SCH ×3 (01:16→22:13)
[2019-05-01 07:55] LABS: HCT 34.9 % (34.0-46.0); MCH 30.5 pg (25.0-35.0); MCHC 34.5 g/dL (31.0-37.0); MCV 88.6 fL (80.0-100.0); Platelet Count 170 k/uL (150-450); RBC 3.94 m/uL (3.80-5.40); RDW 12.9 % (11.5-15.5); WBC 4.4 k/uL (3.8-10.6)
[2019-05-01] MEDS: PANTOPRAZOLE 40 MG TABLET PO SCH (08:00)
[2019-05-01] MEDS: RIVASTIGMINE 13.3MG/24HR PATCH TRANSDERM SCH (08:02)
[2019-05-01] MEDS: MEMANTINE 10 MG TAB PO SCH ×2 (08:02→20:21)
[2019-05-01 08:03] LABS: African American GFR (CKD) >90 (>60 ml/min/1.73 sqM); Anion Gap 6 mmol/L; Blood Urea Nitrogen 8 mg/dL (7-17); Calcium 8.5 mg/dL (8.4-10.2); Carbon Dioxide 27 mmol/L (22-30); Chloride 107 mmol/L (98-107); Glucose 99 mg/dL (74-99); Non-African American GFR(CKD) >90 (>60 ml/min/1.73 sqM); Potassium 3.1 mmol/L (3.5-5.1); Sodium 140 mmol/L (137-145)
--- NOTE | 2019-05-01 08:27 | XR ---
EXAMINATION TYPE: XR chest 2V DATE OF EXAM: 05/01/2019 COMPARISON: 04/29/2019 TECHNIQUE: PA and lateral views submitted. HISTORY: Fever FINDINGS: There is persistent left lower lobe consolidation and small pleural effusion. Postsurgical change ove rlying the right clavicle and cervical spine no sizable pneumothorax. Right lung is clear. Heart is m ildly prominent and stable. Atherosclerotic change aorta. Degenerative change spine. IMPRESSION: 1. Stable small left pleural effusion and basilar infiltrate.
[2019-05-01] MEDS ORDERED: NON FORMULARY DRUG (Omega-3 Fatty Acids/Fish Oil [Fish Oil 1,000 Mg Softgel] 1 CAP) PO SCH (09:00)
[2019-05-01] MEDS ORDERED: POTASSIUM CHLORIDE ER 20 MEQ TAB.ER PO STA (09:15)
[2019-05-01] MEDS ORDERED: POTASSIUM CHLORIDE ER 20 MEQ TAB.ER PO ONE (10:15)
--- NOTE | 2019-05-01 14:03 | PN ---
PROGRESS NOTE DATE OF SERVICE: 05/01/2019 REASON FOR FOLLOWUP: Fever, source likely pneumonia. INTERVAL HISTORY: The patient is currently afebrile. The patient has been breathing comfortably. The patient denies having any chest pain. No shortness of breath. Family did mention a cough that has been noted, mostly dry. No nausea, vomiting. No abdominal pain, no diarrhea. PHYSICAL EXAMINATION: Blood pressure 147/69 with a pulse of 73, temperature 98.1, she is 98% on room air. General description is an elderly female, lying in bed in no distress. RESPIRATORY SYSTEM: Unlabored breathing with decreased breath sounds at the bases, no wheeze. HEART: S1, S2. Regular rate and rhythm. ABDOMEN: Soft, no tenderness. LABS: Hemoglobin is 12, white count 4.4, BUN of 8, creatinine 0.46. Pleural calcitonin and C- reactive protein is high. X-ray this morning did show left lower lobe pneumonia. DIAGNOSTIC IMPRESSION AND PLAN: Patient admitted to the hospital with a fever, source likely left lower lobe pneumonia, likely community-acquired as the patient clinically responded to Rocephin, to continue for now while waiting for the culture to finalize. Family at the bedside. Their questions were answered. MMODL / IJN: [id number] /
[2019-05-01] MEDS ORDERED: BISACODYL 5 MG TABLET.DR PO PRN (15:12)
[2019-05-01] MEDS: MELATONIN 5 MG TABLET PO SCH (20:20)
[2019-05-01] MEDS: QUEtiapine 25 MG TAB PO SCH (20:21)
[2019-05-01] MEDS: ESCITALOPRAM 20 MG TAB PO SCH (20:21)
[2019-05-01] MEDS: ATORVASTATIN 20 MG TAB PO SCH (20:21)
--- NOTE | 2019-05-02 00:08 | P.PN ---
Subjective Progress Note Date: 05/01/19 Principal diagnosis: 71-year-old pleasant female was recently discharged from the hospital. During her last aspiration patient was admitted for possible urinary tract infection al though I do not believe patient has UTI and patient antibiotics were subsequently discontinued after to 3 days of Rocephin and patient was subsequently discharged , urine cultures at the time of negative comes back again with high-grade fever and fatigue patient denied any significant cough denied any diarrhea denied any headache photophobia. Patient denied any flulike symptoms influenza testing is negative chest x-ray did not show any pneumonic process urease within normal limits. Patient had MRSA UTI in the past probably because of that reason patient was started on vancomycin by ER. Although there is no evidence of staphylococcal infection or a gram-positive infection at this time. There is no cellulitis. Source of this fever is unknown will monitor her one more night and also get the opinion of infectious disease. Patient does have leukocytosis. Patient also is feeling much better today wanted to go home. 05/01/2019 Patient is sitting up in bed in no acute distress with daughter at the bedside. No acute overnight issues. Patient states that she feels much better today than yesterday and has been afebrile for over 24 hours. Patient also mentioned that she has not had a bowel movement in the last 4-5 days and requesting something for that today. Patient had a chest xray today that shows a stable small left pleural effusion and basilar infiltrate. Infectious disease is following. Cultures remain negative thus far. Will continue to monitor closely. Objective - Vital Signs Vital signs: Vital Signs Temp 98.1 F 05/01/19 08:15 Pulse 70 05/01/19 15:05 Resp 17 05/01/19 15:05 BP 147/69 05/01/19 08:15 Pulse Ox 98 05/01/19 04:54 Intake & Output 04/30/19 05/01/19 05/01/19 18:59 06:59 18:59 Intake Total 240 1320 240 Balance 240 1320 240 Intake: Intake, IV Titration 480 Amount Sodium Chloride 0.9% 1, 480 000 ml @ 100 mls/hr IV . Q10H ИРИНА Rx#:[id number] Oral 240 840 240 Other: # Voids 2 2 3 - Exam GENERAL: The patient is alert and oriented x3, not in any acute distress. Well developed, well nourished. HEENT: Pupils are round and equally reacting to light. EOMI. No scleral icterus. No conjunctival pallor. Normocephalic, atraumatic. No pharyngeal erythema. No thyromegaly. CARDIOVASCULAR: S1 and S2 present. No murmurs, rubs, or gallops. PULMONARY: Chest is clear to auscultation, no wheezing or crackles. ABDOMEN: Soft, nontender, nondistended, normoactive bowel sounds. No palpable organomegaly. MUSCULOSKELETAL: No joint swelling or deformity. EXTREMITIES: No cyanosis, clubbing, or pedal edema. NEUROLOGICAL: Gross neurological examination did not reveal any focal deficits. SKIN: No rashes. - Labs CBC & Chem 7: 05/01/19 07:32 05/01/19 15:31 Labs: Abnormal Lab Results - Last 24 Hours (Table) 04/30/19 04/30/19 05/01/19 Range/Units 15:13 15:13 07:32 Potassium 3.1 L (3.5-5.1) mmol/L Creatinine 0.46 L (0.52-1.04) mg/dL C-Reactive Protein 116.5 H (<10.0) mg/L Procalcitonin 0.32 H (0.02-0.09) ng/mL Microbiology - Last 24 Hours (Table) 04/29/19 20:05 Blood Culture - Preliminary Blood No Growth after 24 hours Assessment and Plan Assessment: -Fever and systemic inflammatory response syndrome: Etiology is not clear probably generalized viral illness but now continue with antibiotics and infectious disease is following. She will be monitored one more night as her last few was last night. She doesn't have any evidence of urinary tract infection clinically or biochemically. Chest xray shows stable small left pleural effusion and basilar infiltrate. -History of dementia -Depression -Hyperlipidemia -
[2019-05-02 04:19] VITALS: TEMP 98.1
[2019-05-02] MEDS: PANTOPRAZOLE 40 MG TABLET PO SCH (07:51)
[2019-05-02] MEDS: MEMANTINE 10 MG TAB PO SCH (07:52)
[2019-05-02] MEDS: RIVASTIGMINE 13.3MG/24HR PATCH TRANSDERM SCH (07:52)
[2019-05-02] MEDS: SODIUM CHLORIDE 0.9% 1,000 ML IV SCH (07:53)
--- NOTE | 2019-05-02 12:23 | PN ---
PROGRESS NOTE DATE OF SERVICE: 05/02/2019 REASON FOR FOLLOWUP: Pneumonia, community acquired. INTERVAL HISTORY: The patient is currently afebrile. Patient is breathing comfortably. The patient did have some cough, which is dry in nature. No nausea or vomiting. No abdominal pain. No diarrhea. PHYSICAL EXAMINATION: Blood pressure 137/66, pulse of 65, temperature 98.1. She is 98% on room air. General description is an elderly female lying in bed in no distress. RESPIRATORY SYSTEM: Unlabored breathing. Decreased breath sounds at the bases. No wheeze. HEART: S1, S2. Regular rate and rhythm. ABDOMEN: Soft, no tenderness. LABS: No new labs have been obtained today. Blood culture has been negative. DIAGNOSTIC IMPRESSION AND PLAN: Patient admitted to the hospital with fever, source is likely left lower lobe pneumonia possibly community acquired as the patient has shown clinical improvement on the IV Rocephin. Antibiotic will be switched over to Ceftin 500 mg twice a day for about a week to finish a course of therapy with close outpatient followup. MMODL / IJN: [id number] /
[2019-05-02 12:28] VITALS: BP 155/85; PULSE 66; RESP 16
--- NOTE | 2019-05-02 14:34 | P.DS ---
Providers Date of admission: 05/01/19 12:03 Expected date of discharge: 05/02/19 Attending physician: Sridevi Leblanc Consults: 04/30/19 11:53 Consult Physician Routine Consulting Provider: Markus Whittington Consult Reason/Comments: FUO Do you want consulting provider notified?: Yes Primary care physician: [facility] Course: Final diagnosis -Fever and systemic inflammatory response syndrome -Possible small left pleural effusion and basilar infiltrate of the left lower lobe -Depression -Hyperlipidemia Discharge disposition Patient is being discharged in a stable condition with guarded prognosis to home and will follow up with her primary care provider in one week. Patient will continue on oral antibiotics in the form of Ceftin for the next 5 days. Total time taken is 35 minutes. History of present illness This is a 71-year-old female who was recently admitted for fever of unknown origin along with fatigue and was being closely monitored. Patient was recently hospitalized and treated for a possible urinary tract infection and given antibiotics upon discharge. Per daughter the patient started having fevers and started becoming fatigued and experiencing generalized weakness and so she was brought to the ER. Infectious disease was following. During hospitalization patient had a chest x-ray done which showed a stable small left pleural effusion basilar infiltrate. Currently patient's condition is stable with much improvement and has been afebrile for over 24 hours. Patient states that she would like to go home today. Daughter is at the bedside and discussed at length about following up with primary care provider upon discharge. Patient will complete a short course of oral Ceftin 500 mg twice daily for the next 5 days. Discussed with the patient and the daughter about monitoring for fevers and following up with primary care provider sooner if symptoms persist. Daughter verbalized understanding and agrees with this treatment plan. Patient denies any chest pain, shortness of breath, or palpitations at this time. Patient is afebrile as mentioned previously. Patient denies any nausea or vomiting and is tolerating diet. Guarded prognosis. On exam vital signs are stable. Temp is 8.1 F, pulse is 66, respirations are 16, blood pressure 155/85, oxygen saturation is 95 % on room air. Cardio S1, S2 are present. Respiratory system shows diminished breath sounds at the bases with no wheezing or crackles noted. Abdomen is soft and non-tender. Nervous system shows no focal deficits. Please refer to medication reconciliation sheet for a list of medications. Patient Condition at Discharge: Fair Plan - Discharge Summary New Discharge Prescriptions: New Cefuroxime Axetil [Ceftin] 500 mg PO BID 5 Days #10 tab Continue Multivitamins, Thera [Multivitamin (formulary)] 1 tab PO DAILY Rivastigmine [Exelon 13.3MG/24Hr Patch] 1 patch TRANSDERM DAILY Memantine [Namenda] 10 mg PO BID QUEtiapine [SEROquel] 25 mg PO HS Escitalopram [Lexapro] 20 mg PO HS Melatonin 10 mg PO HS Ubidecarenone [Co Q-10] 100 mg PO DAILY [place]-3 Fatty Acids/Fish Oil [Fish Oil 1,000 mg Softgel] 1 cap PO DAILY Cholecalciferol [Vitamin D3 (25 Mcg = 1000 Iu)] 1,000 unit PO DAILY Atorvastatin [Lipitor] 20 mg PO HS Ondansetron Odt [Zofran ODT] 8 mg PO Q8HR PRN #10 tab PRN Reason: Nausea Acetaminophen Tab [Tylenol] 650 mg PO Q6HR PRN #30 tab PRN Reason: Mild Pain Or Fever > 100.5 Omeprazole [PriLOSEC] 40 mg PO AC-BRKFST #30 capsule. Dicyclomine HCl 10 mg PO TID PRN #0 PRN Reason: Diarrhea ALPRAZolam [Xanax] 0.25 mg PO DAILY PRN PRN Reason: Anxiety Naproxen Sodium [Aleve] 440 mg PO Q12H PRN PRN Reason: Pain Or Fever > 100.5 Discontinued Nitrofurantoin Monohyd/M-Cryst [Macrobid] 100 mg PO Q12HR Discharge Medication List Multivitamins, Thera [Multivitamin (formulary)] 1 tab PO DAILY 07/30/16 [History] Memantine [Namenda] 10 mg PO BID 02/28/18 [History] Rivastigmine [Exelon 13.3MG/24Hr Patch] 1 patch TRANSDERM DAILY 02/28/18 [History] Escitalopram [Lexapro] 20 mg PO HS 09/01/18 [History] Melatonin 10 mg PO HS 09/01/18 [History] QUEtiapine [SEROquel] 25 mg PO HS 09/01/18 [History] Ubidecarenone [Co Q-10] 100 mg PO DAILY 12/09/18 [History] Atorvastatin [Lipitor] 20 mg PO HS 04/24/19 [History] Cholecalciferol [Vitamin D3 (25 Mcg = 1000 Iu)] 1,000 unit PO DAILY 04/24/19 [History] [place]-3 Fatty Acids/Fish Oil [Fish Oil 1,000 mg Softgel] 1 cap PO DAILY 04/24/19 [History] Ondansetron Odt [Zofran ODT] 8 mg PO Q8HR PRN #10 tab 04/24/19 [Rx] Acetaminophen Tab [Tylenol] 650 mg PO Q6HR PRN #30 tab 04/27/19 [Rx] Dicyclomine HCl 10 mg PO TID PRN #0 04/27/19 [Rx] Omeprazole [PriLOSEC] 40 mg PO AC-BRKFST #30 capsule.dr 04/27/19 [Rx] ALPRAZolam [Xanax] 0.25 mg PO DAILY PRN 04/29/19 [History] Naproxen Sodium [Aleve] 440 mg PO Q12H PRN 04/29/19 [History] Cefuroxime Axetil [Ceftin] 500 mg PO BID 5 Days #10 tab 05/02/19 [Rx] Follow up Appointment(s)/Referral(s): Maulik Summers III, MD [Primary Care Provider] - 05/07/19 11:00 am Patient Instructions/Handouts: Cefuroxime (By mouth), Dehydration (DC), Fever in Adults (ED) Activity/Diet/Wound Care/Special Instructions: Activity Limited until follow-up Complete full course of antibiotics until finished Continue current diet Encourage fluids and rest Monitor for fever and follow-up with primary care physician sooner if symptoms persist. Discharge Disposition: HOME SELF-CARE
--- NOTE | 2019-05-08 10:57 | CDI ---
Documentation Clarification Form Date: 05/08/19 From: Morena De Paz Phone: If you have a question about this query, please contact Sarah Berkowitz, Microbiology Manager at [phone] between 8am and 5pm. Admit Date: 05/01/19 Discharge Date: 05/02/19 Patient Name: Jonathan Deleon Visit Number: [id number] ATTENTION: The Clinical Documentation Specialists (CDI) and [facility] Coding Staff appreciate your assistance in clarifying documentation. Please respond to the clarification below the line at the bottom and electronically sign. The CDI & [facility] Coding staff will review the response and follow-up if needed. Please note: Queries are made part of the Legal Health Record. If you have any questions, please contact the author of this message via ITS. Dear Dr. Meghann Urias, Conflicting documentation has been found in the medical record: ID consult states: "Patient admitted to the hospital with a fever, source likely left lower lobe pneumonia." Per your DS: Fever and systemic inflammatory response syndrome, possible small left pleural effusion and basilar infiltrate of the left lower lobe. History/Risk Factors: recent UTI resolved, dehydration, dementia, depression, adult failure to thrive Clinical Indicators: CXR-stable small left pleural effusion and basilar infiltrate Treatment: IV Rocephin, IV Vanco In your opinion, what is the most clinically appropriate diagnosis for this patient? Fever, unknown origin Pneumonia Viral infection Other explanation of clinical findings Unable to determine (no explanation for clinical findings) Pneumonia MTDD
== END 2019-05-02 12:25 | disposition home or self-care (01) | DRG 195 ==
LOC: EC 17:12 → 3NMEDONC 19:28 → OBSVTOIN 05-01 12:03
PROVIDERS: ADMIT Hospitalist; ATTEND Hospitalist
DX: J18.9 Pneumonia, unspecified organism (principal); E86.0 Dehydration; F03.90 Unspecified dementia, unspecified severity, without behavioral disturbance, psychotic disturbance, mood disturbance, and anxiety; F32.9 Major depressive disorder, single episode, unspecified; E78.5 Hyperlipidemia, unspecified; R26.2 Difficulty in walking, not elsewhere classified; R62.7 Adult failure to thrive; Z68.25 Body mass index [BMI] 25.0-25.9, adult; Z79.899 Other long term (current) drug therapy; Z87.440 Personal history of urinary (tract) infections; Z86.14 Personal history of Methicillin resistant Staphylococcus aureus infection; Z87.891 Personal history of nicotine dependence; Z96.653 Presence of artificial knee joint, bilateral; Z88.1 Allergy status to other antibiotic agents; Z88.2 Allergy status to sulfonamides; Z98.890 Other specified postprocedural states; Z80.9 Family history of malignant neoplasm, unspecified; Z82.49 Family history of ischemic heart disease and other diseases of the circulatory system
CPT/HCPCS: 36415; 51701; 71046; 80048; 80053; 81003; 82565; 83605; 84132; 84145; 84484; 85025; 85027; 86140; 87040; 87502; 93005; 96360; 99285

== ENCOUNTER 2019-05-23 23:08 | Emergency (ER) | payer MEDICARE ==
[2019-05-23] MEDS ORDERED: ONDANSETRON 4 MG/2 ML VIAL IVP STA (23:34)
[2019-05-23] MEDS ORDERED: SODIUM CHLORIDE 0.9% 500 ML 500 ML IV STA (23:34)
--- NOTE | 2019-05-23 23:42 | ED ---
Nausea/Vomiting/Diarrhea HPI - General Chief complaint: Nausea/Vomiting/Diarrhea Stated complaint: Vomiting,Diarrhea Time Seen by Provider: 05/23/19 23:33 Source: patient, family Mode of arrival: wheelchair Limitations: physical limitation (Underlying dementia) - History of Present Illness Initial comments: 's patient is a 79-year-old woman with history of some underlying dementia who presents to be evaluated for vomiting and diarrhea. Most of the history is from the patient's family, her son and daughter accompany her. A little bit after 8 PM tonight, patient began having vomiting and diarrhea. She has had approximately 3 episodes of each. No blood or tarry material noted. The patient denies having any complaint now. She is not having abdominal pain. Family was concerned because of the last couple of times she has had vomiting was in association with fever. She had a pneumonia one time and then, the last time she had a serious urinary tract infection. MD complaint: vomiting, diarrhea Onset/Timin -: hour(s) Description of Vomiting: food contents Associated Abdominal Pain: No Improves with: none Worsens with: none Associated Symptoms: nausea/vomiting - Related Data Home Medications Medication Instructions Recorded Confirmed Multivitamins, Thera [Multivitamin 1 tab PO DAILY 07/30/16 04/29/19 (formulary)] Memantine [Namenda] 10 mg PO BID 02/28/18 04/29/19 Rivastigmine [Exelon 13.3MG/24Hr 1 patch TRANSDERM DAILY 02/28/18 04/29/19 Patch] Escitalopram [Lexapro] 20 mg PO HS 09/01/18 04/29/19 Melatonin 10 mg PO HS 09/01/18 04/29/19 QUEtiapine [SEROquel] 25 mg PO HS 09/01/18 04/29/19 Ubidecarenone [Co Q-10] 100 mg PO DAILY 12/09/18 04/29/19 Atorvastatin [Lipitor] 20 mg PO HS 04/24/19 04/29/19 Cholecalciferol [Vitamin D3 (25 1,000 unit PO DAILY 04/24/19 04/29/19 Mcg = 1000 Iu)] [place]-3 Fatty Acids/Fish Oil [Fish 1 cap PO DAILY 04/24/19 04/29/19 Oil 1,000 mg Softgel] ALPRAZolam [Xanax] 0.25 mg PO DAILY PRN 04/29/19 04/29/19 Naproxen Sodium [Aleve] 440 mg PO Q12H PRN 04/29/19 04/29/19 Previous Rx's Medication Instructions Recorded Ondansetron Odt [Zofran ODT] 8 mg PO Q8HR PRN #10 tab 04/24/19 Acetaminophen Tab [Tylenol] 650 mg PO Q6HR PRN #30 tab 04/27/19 Dicyclomine HCl 10 mg PO TID PRN #0 04/27/19 Omeprazole [PriLOSEC] 40 mg PO AC-BRKFST #30 capsule. 04/27/19 Cefuroxime Axetil [Ceftin] 500 mg PO BID 5 Days #10 tab 05/02/19 Allergies Allergy/AdvReac Type Severity Reaction Status Date / Time erythromycin base Allergy Unknown Verified 05/23/19 23:26 [From Erythrocin] Sulfa (Sulfonamide Allergy Rash/Hives,difficulty Verified 05/23/19 23:26 Antibiotics) breathing Review of Systems ROS Statement: Those systems with pertinent positive or pertinent negative responses have been documented in the HPI. ROS Other: All systems not noted in ROS Statement are negative. Limitations: ROS unobtainable due to patients medical condition (Underlying dementia) Constitutional: Denies: fever Respiratory: Denies: cough, dyspnea Cardiovascular: Denies: chest pain Gastrointestinal: Reports: vomiting, diarrhea. Denies: abdominal pain Genitourinary: Denies: dysuria Skin: Denies: rash Neurological: Denies: headache Past Medical History Past Medical History: Chest Pain / Angina, Dementia Additional Past Medical History / Comment(s): cognitive problems per son History of Any Multi-Drug Resistant Organisms: MRSA Date of last positivie culture/infection: 2012 MDRO Source:: THROAT Past Surgical History: Back Surgery, Joint Replacement Additional Past Surgical History / Comment(s): jas knees,carpal tunnel,neck surgery, rt shoulder Past Anesthesia/Blood Transfusion Reactions: No Reported Reaction Past Psychological History: No Psychological Hx Reported Smoking Status: Former smoker Past Alcohol Use History: Rare Past Drug Use History: None Reported - Past Family History Father Family Medical History: Cancer Mother Family Medical History: Cancer Sister(s) Family Medical History: Myocardial Infarction ([place]) General Exam Limitations: no limitations General appearance: alert, in no apparent distress Head exam: Present: atraumatic, normocephalic Eye exam: Present: normal appearance. Absent: scleral icterus, conjunctival injection ENT exam: Present: normal oropharynx Neck exam: Present: normal inspection Respiratory exam: Present: normal lung sounds bilaterally. Absent: respiratory distress, wheezes, rales, rhonchi, stridor Cardiovascular Exam: Present: regular rate, normal rhythm, normal heart sounds. Absent: systolic murmur, diastolic murmur, rubs, gallop GI/Abdominal exam: Present: soft, normal bowel sounds. Absent: distended, tenderness, guarding, rebound, rigid, mass, pulsatile mass, hernia Extremities exam: Present: normal inspection, normal capillary refill. Absent: pedal edema, calf tenderness Back exam: Absent: CVA tenderness (R), CVA tenderness (L) Neurological exam: Present: alert Skin exam: Present: warm, dry, intact, normal color. Absent: rash Course Vital Signs 05/23/19 23:21 Temperature 98.8 F Pulse Rate 100 Respiratory 18 Rate Blood Pressure 121/71 O2 Sat by Pulse 97 Oximetry Medical Decision Making - Lab Data Result diagrams: 05/24/19 00:03 05/24/19 00:03 Lab Results 05/24/19 05/24/19 05/24/19 Range/Units 00:03 00:03 00:36 WBC 11.0 H (3.8-10.6) k/uL RBC 4.41 (3.80-5.40) m/uL Hgb 13.7 (11.4-16.0) gm/dL Hct 39.5 (34.0-46.0) % MCV 89.5 (80.0-100.0) fL MCH 31.0 (25.0-35.0) pg MCHC 34.7 (31.0-37.0) g/dL RDW 13.5 (11.5-15.5) % Plt Count 202 (150-450) k/uL Neutrophils % 90 % Lymphocytes % 4 % Monocytes % 4 % Eosinophils % 1 % Basophils % 0 % Neutrophils # 9.9 H (1.3-7.7) k/uL Lymphocytes # 0.5 L (1.0-4.8) k/uL Monocytes # 0.4 (0-1.0) k/uL Eosinophils # 0.1 (0-0.7) k/uL Basophils # 0.0 (0-0.2) k/uL Sodium 139 (137-145) mmol/L Potassium 3.7 (3.5-5.1) mmol/L Chloride 106 (98-107) mmol/L Carbon Dioxide 22 (22-30) mmol/L Anion Gap 11 mmol/L BUN 10 (7-17) mg/dL Creatinine 0.64 (0.52-1.04) mg/dL Est GFR (CKD-EPI)AfAm >90 (>60 ml/min/1.73 sqM) Est GFR (CKD-EPI)NonAf 86 (>60 ml/min/1.73 sqM) Glucose 131 H (74-99) mg/dL Calcium 9.4 (8.4-10.2) mg/dL Total Bilirubin 0.8 (0.2-1.3) mg/dL AST 23 (14-36) U/L ALT 25 (9-52) U/L Alkaline Phosphatase 68 (38-126) U/L Total Protein 6.8 (6.3-8.2) g/dL Albumin 4.2 (3.5-5.0) g/dL Amylase 93 (30-110) U/L Lipase 594 H (23-300) U/L Urine Color Yellow Urine Appearance Clear (Clear) Urine pH 5.5 (5.0-8.0) Ur Specific [place] 1.013 (1.001-1.035) Urine Protein Negative (Negative) Urine Glucose (UA) Negative (Negative) Urine Ketones Negative (Negative) Urine Blood Negative (Negative) Urine Nitrite Negative (Negative) Urine Bilirubin Negative (Negative) Urine Urobilinogen <2.0 (<2.0) mg/dL Ur Leukocyte Esterase Negative (Negative) Disposition Clinical Impression: Vomiting and diarrhea Disposition: HOME SELF-CARE Condition: Good Instructions (If sedation given, give patient instructions): Gastroenteritis (ED) Is patient prescribed a controlled substance at d/c from ED?: No Referrals: Maulik Summers III, MD [Primary Care Provider] - 1-2 days
[2019-05-24 00:10] LABS: Basophils % (A) 0 %; Eosinophils # (A) 0.1 k/uL (0-0.7); Eosinophils % (A) 1 %; HCT 39.5 % (34.0-46.0); HGB 13.7 gm/dL (11.4-16.0); Lymphocytes # (A) 0.5 k/uL (1.0-4.8); Lymphocytes % (A) 4 %; MCHC 34.7 g/dL (31.0-37.0); MCV 89.5 fL (80.0-100.0); Mean Platelet Volume 8.3; Monocytes # (A) 0.4 k/uL (0-1.0); Monocytes % (A) 4 %; Neutrophils # (A) 9.9 k/uL (1.3-7.7); Neutrophils % (A) 90 %; Platelet Count 202 k/uL (150-450); RBC 4.41 m/uL (3.80-5.40); RDW 13.5 % (11.5-15.5)
[2019-05-24 00:23] LABS: ALT 25 U/L (9-52); AST 23 U/L (14-36); African American GFR (CKD) >90 (>60 ml/min/1.73 sqM); Albumin 4.2 g/dL (3.5-5.0); Alkaline Phosphatase 68 U/L (38-126); Amylase 93 U/L (30-110); Anion Gap 11 mmol/L; Blood Urea Nitrogen 10 mg/dL (7-17); Calcium 9.4 mg/dL (8.4-10.2); Carbon Dioxide 22 mmol/L (22-30); Chloride 106 mmol/L (98-107); Glucose 131 mg/dL (74-99); Non-African American GFR(CKD) 86 (>60 ml/min/1.73 sqM); Potassium 3.7 mmol/L (3.5-5.1); Sodium 139 mmol/L (137-145); Total Bilirubin 0.8 mg/dL (0.2-1.3); Total Protein 6.8 g/dL (6.3-8.2)
[2019-05-24 00:52] LABS: Appearance,Urine Clear (Clear); Bilirubin,Urine Negative (Negative); Blood,Urine Negative (Negative); Color,Urine Yellow; Glucose,Urine (UA) Negative (Negative); Ketones,Urine Negative (Negative); Leukocyte Esterase,Urine Negative (Negative); Nitrite,Urine Negative (Negative); PH, Urine 5.5 (5.0-8.0); Protein,Urine Negative (Negative); Specific Gravity,Urine 1.013 (1.001-1.035); Urobilinogen,Urine <2.0 mg/dL (<2.0)
--- NOTE | 2019-05-24 01:19 | XR ---
EXAMINATION TYPE: XR chest 2V DATE OF EXAM: 05/24/2019 COMPARISON: 05/01/2019 HISTORY: Vomiting TECHNIQUE: Frontal and lateral views of the chest are obtained. FINDINGS: There is some mild atelectasis left lung base. The other lung barron are clear. Heart size is normal. There is a plate fixing old right clavicle fracture. There are no hilar masses. There is no heart failure. IMPRESSION: Mild atelectasis at the lateral left lung base. Normal heart. Atelectasis is new compare d to old exam.
[2019-05-24 01:56] VITALS: BP 142/70; PULSE 86; RESP 16; TEMP 98.5
== END 2019-05-24 01:56 | disposition home or self-care (01) ==
LOC: EC 23:08
DX: R19.7 Diarrhea, unspecified (principal); R11.2 Nausea with vomiting, unspecified; R50.9 Fever, unspecified; I20.9 Angina pectoris, unspecified; F03.90 Unspecified dementia, unspecified severity, without behavioral disturbance, psychotic disturbance, mood disturbance, and anxiety; Z87.891 Personal history of nicotine dependence; Z88.1 Allergy status to other antibiotic agents; Z88.2 Allergy status to sulfonamides; Z79.899 Other long term (current) drug therapy; Z86.14 Personal history of Methicillin resistant Staphylococcus aureus infection; Z87.01 Personal history of pneumonia (recurrent); Z87.440 Personal history of urinary (tract) infections
CPT/HCPCS: 36415; 80053; 82150; 83690; 85025; 81003; 71046; 99284; 96374; 96361 ×2; J2405

== ENCOUNTER → 2020-02-06 | Outpatient (CLI) | payer MEDICARE | END | disposition home or self-care (01) | LOC: LABWHC1 12:30 | PROVIDERS: ATTEND Family Medicine | DX: Z20.828 Contact with and (suspected) exposure to other viral communicable diseases (principal) | CPT/HCPCS: U0003; C9803 ==

== ENCOUNTER 2020-02-08 10:57 | Observation (INO) | payer MEDICARE ==
[2020-02-08] MEDS ORDERED: ACETAMINOPHEN TAB 500 MG TAB PO STA (11:14)
[2020-02-08] MEDS: SODIUM CHLORIDE 0.9% 1,000 ML IV SCH ×3 (11:26→22:59)
[2020-02-08] MEDS: SODIUM CHLORIDE 0.9% 500 ML 500 ML IV SCH ×2 (11:26→12:01)
--- NOTE | 2020-02-08 11:27 | ED ---
General Adult HPI - General Chief complaint: Syncope Stated complaint: syncope/poss COVID Time Seen by Provider: 02/08/20 11:00 Source: patient, RN notes reviewed, old records reviewed Mode of arrival: ambulatory Limitations: no limitations - History of Present Illness Initial comments: This is a 79-year-old female who has a past medical history significant for high blood pressure and Alzheimer's. According to the daughter the patient was told by her dentist that she may have been exposed: She got tested 2 days ago. Today patient had a syncopal episode at home and looked pale to the daughter she brought the patient to the emergency department immediately. Patient daughter states that they syncopal episode only lasted for a few seconds and then the patient became awake. She also is complaining of a little left-sided neck pain. The patient herself is a very poor historian secondary to her dementia but she denies any pain currently. Daughter stated she took her temperature at home and she 100.2 fever so she decided to bring her into the emergency department to be evaluated. Patient did get tested for COVID 2 days ago and it was negative. - Related Data Home Medications Medication Instructions Recorded Confirmed Multivitamins, Thera [Multivitamin 1 tab PO DAILY 07/30/16 04/29/19 (formulary)] Memantine [Namenda] 10 mg PO BID 02/28/18 04/29/19 Rivastigmine [Exelon 13.3MG/24Hr 1 patch TRANSDERM DAILY 02/28/18 04/29/19 Patch] Escitalopram [Lexapro] 20 mg PO HS 09/01/18 04/29/19 Melatonin 10 mg PO HS 09/01/18 04/29/19 QUEtiapine [SEROquel] 25 mg PO HS 09/01/18 04/29/19 Ubidecarenone [Co Q-10] 100 mg PO DAILY 12/09/18 04/29/19 Atorvastatin [Lipitor] 20 mg PO HS 04/24/19 04/29/19 Cholecalciferol [Vitamin D3 (25 1,000 unit PO DAILY 04/24/19 04/29/19 Mcg = 1000 Iu)] [place]-3 Fatty Acids/Fish Oil [Fish 1 cap PO DAILY 04/24/19 04/29/19 Oil 1,000 mg Softgel] ALPRAZolam [Xanax] 0.25 mg PO DAILY PRN 04/29/19 04/29/19 Naproxen Sodium [Aleve] 440 mg PO Q12H PRN 04/29/19 04/29/19 Previous Rx's Medication Instructions Recorded Ondansetron Odt [Zofran ODT] 8 mg PO Q8HR PRN #10 tab 04/24/19 Acetaminophen Tab [Tylenol] 650 mg PO Q6HR PRN #30 tab 04/27/19 Dicyclomine HCl 10 mg PO TID PRN #0 04/27/19 Omeprazole [PriLOSEC] 40 mg PO AC-BRKFST #30 capsule. 04/27/19 Cefuroxime Axetil [Ceftin] 500 mg PO BID 5 Days #10 tab 05/02/19 Allergies Allergy/AdvReac Type Severity Reaction Status Date / Time erythromycin base Allergy Unknown Verified 02/08/20 12:56 [From Erythrocin] Sulfa (Sulfonamide Allergy Rash/Hives,difficulty Verified 02/08/20 12:56 Antibiotics) breathing Review of Systems ROS Statement: Those systems with pertinent positive or pertinent negative responses have been documented in the HPI. ROS Other: All systems not noted in ROS Statement are negative. Past Medical History Past Medical History: Chest Pain / Angina, Dementia Additional Past Medical History / Comment(s): cognitive problems per son History of Any Multi-Drug Resistant Organisms: MRSA Date of last positivie culture/infection: 2012 MDRO Source:: THROAT Past Surgical History: Back Surgery, Joint Replacement Additional Past Surgical History / Comment(s): jas knees,carpal tunnel,neck surgery, rt shoulder Past Anesthesia/Blood Transfusion Reactions: No Reported Reaction Past Psychological History: No Psychological Hx Reported Past Alcohol Use History: Rare Past Drug Use History: None Reported - Past Family History Father Family Medical History: Cancer Mother Family Medical History: Cancer Sister(s) Family Medical History: Myocardial Infarction ([place]) General Exam - General Exam Comments Initial Comments: GENERAL: Patient is well-developed and well-nourished. Patient is nontoxic and well- hydrated and is in no acute distress. ENT: Neck is soft and supple. No significant lymphadenopathy is noted. Oropharynx is clear. Moist mucous membranes. Neck has full range of motion without eliciting any pain. EYES: The sclera were anicteric and conjunctiva were pink and moist. Extraocular movements were intact and pupils were equal round and reactive to light. Eyelids were unremarkable. PULMONARY: Unlabored respirations. Good breath sounds bilaterally. No audible rales rhonchi or wheezing was noted. CARDIOVASCULAR: There is a regular rate and rhythm without any murmurs gallops or rubs. ABDOMEN: Soft and nontender with normal bowel sounds. SKIN: Skin is clear with no lesions or rashes and otherwise unremarkable. NEUROLOGIC: Patient is alert and oriented 1. Cranial nerves II through XII are grossly intact. Motor and sensory are also intact. Normal speech, volume and content. Symmetrical smile. MUSCULOSKELETAL: Normal extremities with adequate strength and full range of motion. No lower extremity swelling or edema. No calf tenderness. LYMPHATICS: No significant lymphadenopathy is noted PSYCHIATRIC: Normal psychiatric evaluation. Limitations: no limitations Course Vital Signs 02/08/20 10:58 Temperature 100.3 F H Pulse Rate 71 Respiratory 18 Rate Blood Pressure 127/97 O2 Sat by Pulse 94 L Oximetry Medical Decision Making - Medical Decision Making EKG shows a sinus rhythm with occasional PAC at a rate of 77 bpm DE interval 282 QRS is 80 QT interval 434 QTC is 491. Patient's EKG shows no ST segment elevation or depression. Chest x-ray shows no acute abnormality. I spoke with Dr. SAEED agreed to observe the patient overnight and I admitted the patient wrote admitting orders - Lab Data Result diagrams: 02/08/20 12:05 02/08/20 12:05 Lab Results 02/08/20 02/08/20 02/08/20 Range/Units 12:05 12:05 12:05 WBC 9.6 (3.8-10.6) k/uL RBC 4.48 (3.80-5.40) m/uL Hgb 13.3 (11.4-16.0) gm/dL Hct 39.6 (34.0-46.0) % MCV 88.5 (80.0-100.0) fL MCH 29.7 (25.0-35.0) pg MCHC 33.5 (31.0-37.0) g/dL RDW 13.4 (11.5-15.5) % Plt Count 170 (150-450) k/uL Neutrophils % 81 % Lymphocytes % 11 % Monocytes % 6 % Eosinophils % 1 % Basophils % 0 % Neutrophils # 7.7 (1.3-7.7) k/uL Lymphocytes # 1.0 (1.0-4.8) k/uL Monocytes # 0.6 (0-1.0) k/uL Eosinophils # 0.1 (0-0.7) k/uL Basophils # 0.0 (0-0.2) k/uL PT 9.7 (9.0-12.0) sec INR 0.9 (<1.2) APTT 22.9 (22.0-30.0) sec Sodium 137 (137-145) mmol/L Potassium 3.8 (3.5-5.1) mmol/L Chloride 104 (98-107) mmol/L Carbon Dioxide 25 (22-30) mmol/L Anion Gap 8 mmol/L BUN 14 (7-17) mg/dL Creatinine 0.46 L (0.52-1.04) mg/dL Est GFR (CKD-EPI)AfAm >90 (>60 ml/min/1.73 sqM) Est GFR (CKD-EPI)NonAf >90 (>60 ml/min/1.73 sqM) Glucose 103 H (74-99) mg/dL Plasma Lactic Acid Derrick (0.7-2.0) mmol/L Calcium 9.0 (8.4-10.2) mg/dL Total Bilirubin 0.9 (0.2-1.3) mg/dL AST 26 (14-36) U/L ALT 15 (4-34) U/L Alkaline Phosphatase 77 (38-126) U/L Total Protein 6.3 (6.3-8.2) g/dL Albumin 3.9 (3.5-5.0) g/dL Urine Color Urine Appearance (Clear) Urine pH (5.0-8.0) Ur Specific [place] (1.001-1.035) Urine Protein (Negative) Urine Glucose (UA) (Negative) Urine Ketones (Negative) Urine Blood (Negative) Urine Nitrite (Negative) Urine Bilirubin (Negative) Urine Urobilinogen (<2.0) mg/dL Ur Leukocyte Esterase (Negative) 02/08/20 02/08/20 Range/Units 12:05 12:25 WBC (3.8-10.6) k/uL RBC (3.80-5.40) m/uL Hgb (11.4-16.0) gm/dL Hct (34.0-46.0) % MCV (80.0-100.0) fL MCH (25.0-35.0) pg MCHC (31.0-37.0) g/dL RDW (11.5-15.5) % Plt Count (150-450) k/uL Neutrophils % % Lymphocytes % % Monocytes % % Eosinophils % % Basophils % % Neutrophils # (1.3-7.7) k/uL Lymphocytes # (1.0-4.8) k/uL Monocytes # (0-1.0) k/uL Eosinophils # (0-0.7) k/uL Basophils # (0-0.2) k/uL PT (9.0-12.0) sec INR (<1.2) APTT (22.0-30.0) sec Sodium (137-145) mmol/L Potassium (3.5-5.1) mmol/L Chloride (98-107) mmol/L Carbon Dioxide (22-30) mmol/L Anion Gap mmol/L BUN (7-17) mg/dL Creatinine (0.52-1.04) mg/dL Est GFR (CKD-EPI)AfAm (>60 ml/min/1.73 sqM) Est GFR (CKD-EPI)NonAf (>60 ml/min/1.73 sqM) Glucose (74-99) mg/dL Plasma Lactic Acid Derrick 1.4 (0.7-2.0) mmol/L Calcium (8.4-10.2) mg/dL Total Bilirubin (0.2-1.3) mg/dL AST (14-36) U/L ALT (4-34) U/L Alkaline Phosphatase (38-126) U/L Total Protein (6.3-8.2) g/dL Albumin (3.5-5.0) g/dL Urine Color Light Yellow Urine Appearance Clear (Clear) Urine pH 7.5 (5.0-8.0) Ur Specific [place] 1.009 (1.001-1.035) Urine Protein Negative (Negative) Urine Glucose (UA) Negative (Negative) Urine Ketones Negative (Negative) Urine Blood Negative (Negative) Urine Nitrite Negative (Negative) Urine Bilirubin Negative (Negative) Urine Urobilinogen <2.0 (<2.0) mg/dL Ur Leukocyte Esterase Negative (Negative) Disposition Clinical Impression: Syncope, Fever Disposition: ADMITTED IP TO THIS HOSP Referrals: Maulik Summers III, MD [Primary Care Provider] - 1-2 days Time of Disposition: 13:01
--- NOTE | 2020-02-08 11:58 | XR ---
EXAMINATION TYPE: XR chest 2V DATE OF EXAM: 02/08/2020 COMPARISON: 05/24/2019 HISTORY: Shortness of breath TECHNIQUE: Frontal and lateral views of the chest are obtained. FINDINGS: Scattered senescent parenchymal changes noted. Hyperinflation compatible with COPD. No evidence for infiltrate. No evidence for atelectasis. Heart size is stable. Mediastinal structures are stable and grossly unremarkable. No evidence for hilar prominence. Degenerative changes dorsal spine. IMPRESSION: 1. No evidence for acute pulmonary disease.
[2020-02-08 12:20] LABS: Basophils % (A) 0 %; Eosinophils # (A) 0.1 k/uL (0-0.7); Eosinophils % (A) 1 %; HCT 39.6 % (34.0-46.0); HGB 13.3 gm/dL (11.4-16.0); Lymphocytes % (A) 11 %; MCH 29.7 pg (25.0-35.0); MCHC 33.5 g/dL (31.0-37.0); MCV 88.5 fL (80.0-100.0); Mean Platelet Volume 8.5; Monocytes # (A) 0.6 k/uL (0-1.0); Monocytes % (A) 6 %; Neutrophils # (A) 7.7 k/uL (1.3-7.7); Neutrophils % (A) 81 %; Platelet Count 170 k/uL (150-450); RBC 4.48 m/uL (3.80-5.40); RDW 13.4 % (11.5-15.5); WBC 9.6 k/uL (3.8-10.6)
[2020-02-08 12:30] LABS: ALT 15 U/L (4-34); AST 26 U/L (14-36); African American GFR (CKD) >90 (>60 ml/min/1.73 sqM); Albumin 3.9 g/dL (3.5-5.0); Alkaline Phosphatase 77 U/L (38-126); Anion Gap 8 mmol/L; Blood Urea Nitrogen 14 mg/dL (7-17); Carbon Dioxide 25 mmol/L (22-30); Chloride 104 mmol/L (98-107); Glucose 103 mg/dL (74-99); Non-African American GFR(CKD) >90 (>60 ml/min/1.73 sqM); Potassium 3.8 mmol/L (3.5-5.1); Sodium 137 mmol/L (137-145); Total Bilirubin 0.9 mg/dL (0.2-1.3); Total Protein 6.3 g/dL (6.3-8.2)
[2020-02-08 12:32] LABS: INR 0.9 (<1.2); Partial Thromboplastin Time 22.9 sec (22.0-30.0); Prothrombin Time 9.7 sec (9.0-12.0)
[2020-02-08 12:33] LABS: Appearance,Urine Clear (Clear); Bilirubin,Urine Negative (Negative); Blood,Urine Negative (Negative); Color,Urine Light Yellow; Glucose,Urine (UA) Negative (Negative); Ketones,Urine Negative (Negative); Leukocyte Esterase,Urine Negative (Negative); Nitrite,Urine Negative (Negative); PH, Urine 7.5 (5.0-8.0); Protein,Urine Negative (Negative); Specific Gravity,Urine 1.009 (1.001-1.035); Urobilinogen,Urine <2.0 mg/dL (<2.0)
[2020-02-08] MEDS ORDERED: SODIUM CHLORIDE 0.9% 1,000 ML IV ONE (13:02)
[2020-02-08] MEDS: IOPAMIDOL CONTRAST (ORAL USE) VIAL PO PRN ×2 (16:26→17:12)
[2020-02-08] MEDS ORDERED: NAPROXEN 250 MG TAB PO PRN (17:20)
--- NOTE | 2020-02-08 18:30 | CT ---
EXAMINATION TYPE: CT abdomen pelvis wo con DATE OF EXAM: 02/08/2020 COMPARISON: 02/15/2018 HISTORY: Fever. Patient poor historian, history of dementia. CT DLP: 879.7 mGycm Automated exposure control for dose reduction was used. Images were obtained from the diaphragm to the floor the pelvis with oral contrast only. FINDINGS: Lung bases are clear of infiltrate. Heart appears slightly enlarged. There is no pleural effusion. Th ere is some focal atelectasis left posterior lung base at the sulcus. Liver and gallbladder appear normal. Bile ducts are not dilated. Spleen is intact. Stomach is intact. There is no evidence of pancreatic mass. There is no adrenal mass. Kidneys have normal size. There is no hydronephrosis. Ureters are not dilat ed. Abdominal aorta is atheromatous. There is no retroperitoneal adenopathy. Bladder distends smoothl y. There is no inguinal hernia. There is 2.5 cm calcified uterine fibroid. There is metal artifact fr om posterior fusion surgery at L4-5 and L5-S1. There is no lumbar compression fracture. The bony pelv is appears intact. There is no mesenteric edema. There is no ascites or free air. There is no bowel obstruction. Appendi x is not seen. There is no sign of thickened appendix. IMPRESSION: No acute abnormality of the abdomen pelvis. Mild atherosclerotic vascular disease. No adverse change compared to old exam. There is minimal lingular scarring unchanged compared to old exam. There is new focal atelectasis left posterior lung base compared to old exam..
[2020-02-08] MEDS: QUEtiapine 25 MG TAB PO SCH (21:04)
[2020-02-08] MEDS: MEMANTINE 10 MG TAB PO SCH (21:05)
[2020-02-08] MEDS: ESCITALOPRAM 10 MG TAB PO SCH (21:05)
[2020-02-08] MEDS: FLUTICASONE 50MCG/SPRAY NASAL 16GM EA NOSTRIL SCH (21:05)
[2020-02-08] MEDS: ATORVASTATIN 20 MG TAB PO SCH (21:05)
--- NOTE | 2020-02-09 00:46 | P.CONS ---
History of Present Illness - Reason for Consult Consult date: 02/08/20 Fever Requesting physician: Shawnee Webster - Chief Complaint Syncopal episode and low-grade fever x one day - History of Present Illness Patient is 79-year-old female with a past medical history significant for hypertension and dementia, who apparently was told by her dentist that she may have been exposed to covid patient subsequently did have outpatient covid Testing done about 2 days ago which was negative, patient apparently did have a syncopal episode at home and the patient appeared to the daughter and the patient was brought into the ER patient was complaining of some left-sided neck pain and the patient did have a low-grade fever 100.2 at home with these symptoms the patient was evaluated by the physician on arrival to the area patient did have low-grade fever 100.4F. The patient did have a normal white count patient chest x-ray was negative for any acute infiltrate and urine was negative patient subsequently has been admitted to the hospital for further workup of her fever and infectious disease was consulted. Patient abdominal evaluation and a good historian patient did not recall if she went to the dentist and forward reason patient denies having any headache or any pain in her teeth denies having any chest pain or shortness of cough no nausea no vomiting and abdominal pain or any diarrhea Review of Systems Positive point has been mentioned in the HPI rest of the systems are negative Past Medical History Past Medical History: Chest Pain / Angina, Dementia Additional Past Medical History / Comment(s): cognitive problems per son History of Any Multi-Drug Resistant Organisms: MRSA Year Discovered:: 2012 MDRO Source:: THROAT Past Surgical History: Back Surgery, Joint Replacement Additional Past Surgical History / Comment(s): jas knees,carpal tunnel,neck surgery, rt shoulder Past Anesthesia/Blood Transfusion Reactions: No Reported Reaction Past Psychological History: No Psychological Hx Reported Past Alcohol Use History: Rare Past Drug Use History: None Reported - Past Family History Father Family Medical History: Cancer Mother Family Medical History: Cancer Sister(s) Family Medical History: Myocardial Infarction ([place]) Medications and Allergies Home Medications Medication Instructions Recorded Confirmed Type Multivitamins, Thera [Multivitamin 1 tab PO DAILY 07/30/16 02/08/20 History (formulary)] Memantine [Namenda] 10 mg PO BID 02/28/18 02/08/20 History Escitalopram [Lexapro] 30 mg PO HS 09/01/18 02/08/20 History QUEtiapine [SEROquel] 25 mg PO HS 09/01/18 02/08/20 History Atorvastatin [Lipitor] 20 mg PO HS 04/24/19 02/08/20 History Omeprazole [PriLOSEC] 40 mg PO AC-BRKFST #30 capsule. 04/27/19 02/08/20 Rx Naproxen Sodium [Aleve] 440 mg PO DAILY PRN 04/29/19 02/08/20 History Fluticasone Nasal [place] [Flonase 1 spray EA NOSTRIL BID 02/08/20 02/08/20 History Nasal [place]] Allergies Allergy/AdvReac Type Severity Reaction Status Date / Time erythromycin base Allergy Unknown Verified 02/08/20 12:56 [From Erythrocin] Sulfa (Sulfonamide Allergy Rash/Hives,difficulty Verified 02/08/20 12:56 Antibiotics) breathing Physical Exam Vitals: Vital Signs Temp Pulse Pulse Resp BP BP Pulse Ox 02/08/20 13:59 98.3 F 67 16 145/64 96 02/08/20 13:17 100.5 F H 71 16 139/94 97 02/08/20 10:58 100.3 F H 71 18 127/97 94 L Intake and Output 02/08/20 02/08/20 02/08/20 06:59 14:59 22:59 Other: Voiding Method Diaper Incontinent Weight 63.503 kg GENERAL DESCRIPTION: Elderly female lying in bed, no distress. No tachypnea or accessory muscle of respiration use. HEENT: Shows Pallor , no scleral icterus. Oral mucous membrane is dry. No pharyngeal erythema or thrush NECK: Trachea central, no thyromegaly. LUNGS: Unlabored breathing. Decreased breath sounds at the base. No wheeze or crackle. HEART: S1, S2, regular rate and rhythm. No loud murmur ABDOMEN: Soft, no tenderness , guarding or rigidity, no organomegaly EXTREMITIES: No edema of feet. SKIN: No rash, no masses palpable. NEUROLOGICAL: The patient is awake, alert, oriented x2, mood and affect normal. Results CBC & Chem 7: 02/08/20 12:05 02/08/20 12:05 Labs: Abnormal Lab Results - Last 24 Hours (Table) 08/22/20 Range/Units 12:05 Creatinine 0.46 L (0.52-1.04) mg/dL Glucose 103 H (74-99) mg/dL Assessment and Plan Assessment: 1- patient presented to hospital with a syncopal episode and a low-grade fever in this patient now have a difficult historian however denies any active symptoms at this time to me initial workup in the ER including a UA and a chest x-ray has been negative and the patient denies having pain to any of her teeth or any recent dental work up though there was a history of dental visit and possible exposure to the covid per ER physician 2-Patient with multiple antibiotic ALLERGIES that would limit the number of antibiotic safe to use (1) Fever Current Visit: Yes Status: Acute Code(s): R50.9 - FEVER, UNSPECIFIED SNOMED Code(s): 962343694 Plan: 1-we will obtain CT of abdominal pelvis to rule out any intra-abdominal pathology and the patient currently did have a negative UA and a chest x-ray and no evidence of any cellulitis 2-empirically add Rocephin 1 g daily and doxycycline while waiting for the workup to finalize We will follow on clinical condition and cultures to further adjust medication if needed Thank you for this consultation will follow this patient with you Time with Patient: Greater than 30
[2020-02-09 07:06] LABS: Basophils % (A) 1 %; Eosinophils # (A) 0.1 k/uL (0-0.7); Eosinophils % (A) 1 %; HCT 39.2 % (34.0-46.0); HGB 12.8 gm/dL (11.4-16.0); Lymphocytes # (A) 1.2 k/uL (1.0-4.8); Lymphocytes % (A) 16 %; MCHC 32.7 g/dL (31.0-37.0); MCV 88.7 fL (80.0-100.0); Mean Platelet Volume 8.5; Monocytes # (A) 0.6 k/uL (0-1.0); Monocytes % (A) 8 %; Neutrophils # (A) 5.8 k/uL (1.3-7.7); Neutrophils % (A) 73 %; Platelet Count 193 k/uL (150-450); RBC 4.42 m/uL (3.80-5.40); RDW 13.4 % (11.5-15.5); WBC 7.9 k/uL (3.8-10.6)
[2020-02-09 07:17] LABS: African American GFR (CKD) >90 (>60 ml/min/1.73 sqM); Anion Gap 7 mmol/L; Blood Urea Nitrogen 8 mg/dL (7-17); C Reactive Protein 53.3 mg/L (<10.0); Calcium 8.9 mg/dL (8.4-10.2); Carbon Dioxide 23 mmol/L (22-30); Chloride 104 mmol/L (98-107); Glucose 107 mg/dL (74-99); Non-African American GFR(CKD) >90 (>60 ml/min/1.73 sqM); Potassium 3.7 mmol/L (3.5-5.1); Sodium 134 mmol/L (137-145)
[2020-02-09] MEDS: MEMANTINE 10 MG TAB PO SCH ×2 (08:20→20:07)
[2020-02-09] MEDS: PANTOPRAZOLE 40 MG TABLET PO SCH (08:20)
[2020-02-09] MEDS: FLUTICASONE 50MCG/SPRAY NASAL 16GM EA NOSTRIL SCH ×2 (08:20→20:07)
[2020-02-09] MEDS: MULTIVITAMINS, THERA 1 EACH TAB PO SCH (08:20)
[2020-02-09] MEDS: DOXYCYCLINE 100 MG CAP PO SCH ×2 (08:20→20:06)
[2020-02-09] MEDS: SODIUM CHLORIDE 0.9% 1,000 ML IV SCH ×2 (09:30→17:26)
--- NOTE | 2020-02-09 11:54 | P.HPIM ---
History of Present Illness H&P Date: 02/08/20 Chief Complaint: Syncopal episode/low-grade fever 79-year-old female with a past medical history significant for hypertension and dementia, who apparently was told by her dentist that she may have been exposed to covid patient subsequently did have outpatient covid Testing done about 2 days ago which was negative, patient apparently did have a syncopal episode at home and the patient appeared to the daughter and the patient was brought into the ER patient was complaining of some left-sided neck pain and the patient did have a low-grade fever 100.2 at home with these symptoms the patient was evaluated by the physician on arrival to the area patient did have low-grade fever 100.4F. The patient did have a normal white count patient chest x-ray was negative for any acute infiltrate and urine was negative patient subsequently has been admitted to the hospital for further workup of her fever and infectious disease was consulted. Patient abdominal evaluation and a good historian patient did not recall if she went to the dentist and forward reason patient denies having any headache or any pain in her teeth denies having any chest pain or shortness of cough no nausea no vomiting and abdominal pain or any diarrhea Workup in ED with a chest x-ray was unremarkable, EKG shows normal sinus rhythm and no acute ST or T-wave changes; lab review reveals a normal white blood count of 9.6; UA was unremarkable; patient is admitted to the hospital for observation and evaluation by ID Review of Systems REVIEW OF SYSTEMS: CONSTITUTIONAL: No fever, no malaise, no fatigue. HEENT: No recent visual problems or hearing problems. Denied any sore throat. CARDIOVASCULAR: No chest pain, orthopnea, PND, no palpitations, no syncope. PULMONARY: No shortness of breath, no cough, no hemoptysis. GASTROINTESTINAL: No diarrhea, no nausea, no vomiting, no abdominal pain. NEUROLOGICAL: No headaches, no weakness, no numbness. HEMATOLOGICAL: Denies any bleeding or petechiae. GENITOURINARY: Denies any burning micturition, frequency, or urgency. MUSCULOSKELETAL/RHEUMATOLOGICAL: Denies any joint pain, swelling, or any muscle pain. ENDOCRINE: Denies any polyuria or polydipsia. The rest of the 14-point review of systems is negative. Past Medical History Past Medical History: Chest Pain / Angina, Dementia Additional Past Medical History / Comment(s): cognitive problems per son History of Any Multi-Drug Resistant Organisms: MRSA Date of last positivie culture/infection: 2012 MDRO Source:: THROAT Past Surgical History: Back Surgery, Joint Replacement Additional Past Surgical History / Comment(s): jas knees,carpal tunnel,neck surgery, rt shoulder Past Anesthesia/Blood Transfusion Reactions: No Reported Reaction Past Psychological History: No Psychological Hx Reported Past Alcohol Use History: Rare Past Drug Use History: None Reported - Past Family History Father Family Medical History: Cancer Mother Family Medical History: Cancer Sister(s) Family Medical History: Myocardial Infarction ([place]) Medications and Allergies Home Medications Medication Instructions Recorded Confirmed Type Multivitamins, Thera [Multivitamin 1 tab PO DAILY 07/30/16 02/08/20 History (formulary)] Memantine [Namenda] 10 mg PO BID 02/28/18 02/08/20 History Escitalopram [Lexapro] 30 mg PO HS 09/01/18 02/08/20 History QUEtiapine [SEROquel] 25 mg PO HS 09/01/18 02/08/20 History Atorvastatin [Lipitor] 20 mg PO HS 04/24/19 02/08/20 History Omeprazole [PriLOSEC] 40 mg PO AC-BRKFST #30 capsule. 04/27/19 02/08/20 Rx Naproxen Sodium [Aleve] 440 mg PO DAILY PRN 04/29/19 02/08/20 History Fluticasone Nasal [place] [Flonase 1 spray EA NOSTRIL BID 02/08/20 02/08/20 History Nasal [place]] Allergies Allergy/AdvReac Type Severity Reaction Status Date / Time erythromycin base Allergy Unknown Verified 02/08/20 12:56 [From Erythrocin] Sulfa (Sulfonamide Allergy Rash/Hives,difficulty Verified 02/08/20 12:56 Antibiotics) breathing Physical Exam Vitals: Vital Signs Temp Pulse Resp BP Pulse Ox 02/08/20 13:17 100.5 F H 71 16 139/94 97 02/08/20 10:58 100.3 F H 71 18 127/97 94 L Intake and Output 02/07/20 02/08/20 02/08/20 22:59 06:59 14:59 Other: Weight 63.503 kg - Constitutional General appearance: Present: average body habitus, cooperative, no acute distress - EENT Eyes: Present: anicteric sclerae, EOMI, PERRLA, normal appearance ENT: Present: hearing grossly normal, normal oropharynx Ears: bilateral: normal - Neck Neck: Present: normal ROM. Absent: lymphadenopathy, rigidity, thyromegaly Carotids: negative: bruit present Thyroid: bilateral: normal size, negative: enlarged, nodule - Respiratory Respiratory: bilateral: CTA, negative: rales, rhonchi, wheezing - Cardiovascular Rhythm: regular Heart sounds: normal: S1, S2 Abnormal Heart Sounds: Absent: systolic murmur, diastolic murmur - Gastrointestinal General gastrointestinal: Present: normal bowel sounds, soft. Absent: distended, organomegaly, tenderness - Genitourinary Genitourinary Comment(s): deferred - Integumentary Integumentary: Present: normal turgor. Absent: jaundiced, rash, ulcer - Neurologic Neurologic: Present: CNII-XII intact. Absent: focal deficits - Musculoskeletal Musculoskeletal: Present: gait normal, strength equal bilaterally - Psychiatric Psychiatric: Present: A&O x's 3, appropriate affect, intact judgment & insight Results CBC & Chem 7: 02/09/20 06:32 02/09/20 06:32 Labs: Abnormal Lab Results - Last 24 Hours (Table) 02/08/20 Range/Units 12:05 Creatinine 0.46 L (0.52-1.04) mg/dL Glucose 103 H (74-99) mg/dL Assessment and Plan Assessment: 1. Syncopal episode/low-grade fever - Patient is a very poor historian so most of the history is obtained from the records; workup in ED with a UA and chest x-ray but unremarkable; according to ER notes patient did have exposure to COVID 19; Urine cultures and blood cultures have been done and pending; patient remains afebrile and white blood count is normal; patient has been evaluated by ID and is recommended empiric Rocephin 1 g daily and doxycycline while workup is in progress; CT of abdomen an d pelvis was obtained to rule out intra-abdominal etiology 2. Hyperlipidemia; continue with atorvastatin 20 mg by mouth daily at bedtime 3. Vitamin D deficiency; vitamin D thousand units daily 4. Anxiety/dementia/depression; we will continue with Namenda 10 mg twice a day along with Exelon patch 13.30 mg per 24 hours; Lexapro 20 mg by mouth daily at bedtime 5. Gastroesophageal reflux disease; Protonix 40 mg daily DVT prophylaxis; SCDs/subcu Lovenox CODE STATUS; full code
--- NOTE | 2020-02-09 17:24 | P.PN ---
Subjective Progress Note Date: 02/09/20 Principal diagnosis: Fever of unknown origin 79-year-old female with a past medical history significant for hypertension and dementia, who apparently was told by her dentist that she may have been exposed to covid patient subsequently did have outpatient covid Testing done about 2 days ago which was negative, patient apparently did have a syncopal episode at home and the patient appeared to the daughter and the patient was brought into the ER patient was complaining of some left-sided neck pain and the patient did have a low-grade fever 100.2 at home with these sy mptoms the patient was evaluated by the physician on arrival to the area patient did have low-grade fever 100.4F. The patient did have a normal white count patient chest x-ray was negative for any acute infiltrate and urine was negative patient subsequently has been admitted to the hospital for further workup of her fever and infectious disease was consulted. Patient abdominal evaluation and a good historian patient did not recall if she went to the dentist and forward reason patient denies having any headache or any pain in her teeth denies having any chest pain or shortness of cough no nausea no vomiting and abdominal pain or any diarrhea Workup in ED with a chest x-ray was unremarkable, EKG shows normal sinus rhythm and no acute ST or T-wave changes; lab review reveals a normal white blood count of 9.6; UA was unremarkable; patient is admitted to the hospital for observation and evaluation by ID Patient had a CT of abdomen and pelvis done which was unremarkable; Covid 19 test has been negative; patient remains on IV antibiotics started empirically by ID; patient continues to complain of neck pain; no history of injury or fall; we will order x-ray of cervical spine Objective - Vital Signs Vital signs: Vital Signs Temp 98.8 F 02/09/20 11:25 Pulse 73 02/09/20 11:25 Resp 16 02/09/20 11:25 BP 130/75 02/09/20 11:25 Pulse Ox 93 L 02/09/20 11:25 Intake & Output 02/08/20 02/09/20 02/09/20 18:59 06:59 18:59 Intake Total 480 Balance 480 Weight 63.503 kg Intake: Oral 480 Other: Voiding Method Diaper Diaper Diaper Incontinent Incontinent Incontinent # Voids 1 2 2 - Exam - Constitutional General appearance: Present: average body habitus, cooperative, no acute distress - EENT Eyes: Present: anicteric sclerae, EOMI, PERRLA, normal appearance ENT: Present: hearing grossly normal, normal oropharynx Ears: bilateral: normal - Neck Neck: Present: normal ROM. Absent: lymphadenopathy, rigidity, thyromegaly Carotids: negative: bruit present Thyroid: bilateral: normal size, negative: enlarged, nodule - Respiratory Respiratory: bilateral: CTA, negative: rales, rhonchi, wheezing - Cardiovascular Rhythm: regular Heart sounds: normal: S1, S2 Abnormal Heart Sounds: Absent: systolic murmur, diastolic murmur - Gastrointestinal General gastrointestinal: Present: normal bowel sounds, soft. Absent: distended, organomegaly, tenderness - Genitourinary Genitourinary Comment(s): deferred - Integumentary Integumentary: Present: normal turgor. Absent: jaundiced, rash, ulcer - Neurologic Neurologic: Present: CNII-XII intact. Absent: focal deficits - Musculoskeletal Musculoskeletal: Present: gait normal, strength equal bilaterally - Psychiatric Psychiatric: Present: A&O x's 3, appropriate affect, intact judgment & insight - Labs CBC & Chem 7: 02/09/20 06:32 02/09/20 06:32 Labs: Abnormal Lab Results - Last 24 Hours (Table) 02/08/20 02/09/20 Range/Units 12:05 06:32 Sodium 134 L (137-145) mmol/L Creatinine 0.46 L 0.36 L (0.52-1.04) mg/dL Glucose 103 H 107 H (74-99) mg/dL C-Reactive Protein 53.3 H (<10.0) mg/L Assessment and Plan Assessment: 1. Syncopal episode/low-grade fever - Patient is a very poor historian so most of the history is obtained from the records; workup in ED with a UA and chest x-ray but unremarkable; according to ER notes patient did have exposure to COVID 19; Urine cultures and blood cultures have been done and pending; patient remains afebrile and white blood count is normal; patient has been evaluated by ID and is recommended empiric Rocephin 1 g daily and doxycycline while workup is in progress; CT of abdomen and pelvis was obtained to rule out intra-abdominal etiology 2. Hyperlipidemia; continue with atorvastatin 20 mg by mouth daily at bedtime 3. Vitamin D deficiency; vitamin D thousand units daily 4. Anxiety/dementia/depression; we will continue with Namenda 10 mg twice a day along with Exelon patch 13.30 mg per 24 hours; Lexapro 20 mg by mouth daily at bedtime 5. Gastroesophageal reflux disease; Protonix 40 mg daily DVT prophylaxis; SCDs/subcu Lovenox CODE STATUS; full code
[2020-02-09] MEDS: ESCITALOPRAM 10 MG TAB PO SCH (20:06)
[2020-02-09] MEDS: ATORVASTATIN 20 MG TAB PO SCH (20:06)
[2020-02-09] MEDS: QUEtiapine 25 MG TAB PO SCH (20:07)
--- NOTE | 2020-02-10 00:34 | PN ---
PROGRESS NOTE DATE OF SERVICE: 02/09/2020 REASON FOR FOLLOWUP: Fever. INTERVAL HISTORY: The patient is currently afebrile, has been breathing comfortably. The patient denies having any chest pain or shortness of breath or cough. No nausea, no vomiting. No abdominal pain or diarrhea. PHYSICAL EXAMINATION: Her blood pressure is 146/78 with a pulse of 63, temperature 97.6. She is 95% on room air. General description is an elderly female up in the bed in no distress. RESPIRATORY SYSTEM: Unlabored breathing, clear to auscultation anteriorly. HEART: S1, S2. Regular rate and rhythm. ABDOMEN: Soft, no tenderness. LABS: White count is normal. CRP slightly elevated. DIAGNOSTIC IMPRESSION AND PLAN: Patient admitted to the hospital with fever with concern for possible pneumonitis or community acquired pneumonia. The patient's fever responded to the Rocephin and doxycycline; to continue. Repeat inflammatory markers tomorrow. If continue to improve, finish therapy with oral Ceftin. Continue supportive care. MMODL / IJN: [id number] /
[2020-02-10] MEDS: SODIUM CHLORIDE 0.9% 1,000 ML IV SCH (01:14)
[2020-02-10] MEDS: PANTOPRAZOLE 40 MG TABLET PO SCH (07:37)
[2020-02-10] MEDS: MEMANTINE 10 MG TAB PO SCH (07:37)
[2020-02-10] MEDS: MULTIVITAMINS, THERA 1 EACH TAB PO SCH (07:37)
[2020-02-10] MEDS: DOXYCYCLINE 100 MG CAP PO SCH (07:38)
[2020-02-10 07:50] LABS: Basophils % (A) 0 %; Eosinophils # (A) 0.2 k/uL (0-0.7); Eosinophils % (A) 2 %; HCT 39.9 % (34.0-46.0); HGB 13.4 gm/dL (11.4-16.0); Lymphocytes # (A) 1.3 k/uL (1.0-4.8); Lymphocytes % (A) 18 %; MCH 29.1 pg (25.0-35.0); MCHC 33.5 g/dL (31.0-37.0); MCV 86.9 fL (80.0-100.0); Monocytes # (A) 0.6 k/uL (0-1.0); Monocytes % (A) 8 %; Neutrophils # (A) 4.8 k/uL (1.3-7.7); Neutrophils % (A) 69 %; Platelet Count 150 k/uL (150-450); RBC 4.59 m/uL (3.80-5.40); RDW 13.1 % (11.5-15.5); WBC 6.9 k/uL (3.8-10.6)
[2020-02-10 07:58] LABS: African American GFR (CKD) >90 (>60 ml/min/1.73 sqM); Anion Gap 6 mmol/L; Blood Urea Nitrogen 10 mg/dL (7-17); C Reactive Protein 59.8 mg/L (<10.0); Calcium 8.9 mg/dL (8.4-10.2); Carbon Dioxide 24 mmol/L (22-30); Chloride 106 mmol/L (98-107); Glucose 111 mg/dL (74-99); Non-African American GFR(CKD) >90 (>60 ml/min/1.73 sqM); Sodium 136 mmol/L (137-145)
[2020-02-10] MEDS: FLUTICASONE 50MCG/SPRAY NASAL 16GM EA NOSTRIL SCH (11:58)
--- NOTE | 2020-02-10 12:45 | XR ---
EXAMINATION TYPE: XR cervical spine limited DATE OF EXAM: 02/10/2020 TECHNIQUE: Frontal, lateral, and open mouth view of the cervical spine are obtained. HISTORY: Neck pain. Patient denies injury. COMPARISON: None FINDINGS: The cervical spine is visualized in its entirety from C1 thru the top of T1 level. There i s anterior fixation hardware on C3-C4 and C7-T1, with interbody fusion devices at C3-C4, C4-C5, and C 5-C6. Normal alignment without evidence of acute fracture or dislocation. Multilevel facet arthropath y. The pre-vertebral soft tissue appears within normal limits. The atlantoaxial relationship and base of the dens is within normal limits on the open mouth view. Incompletely visualized right clavicular fixation hardware. IMPRESSION: 1. No acute fracture or dislocation is seen in the cervical spine. 2. Anterior fusion changes from C3 through T1.
[2020-02-10 14:27] VITALS: BP 131/72; PULSE 85; RESP 18; TEMP 98.5
--- NOTE | 2020-02-10 15:25 | P.DS ---
Providers Date of admission: 02/10/20 09:08 Expected date of discharge: 02/10/20 Attending physician: Joseph Price MD Consults: 02/08/20 14:01 Consult Physician Routine Consulting Provider: Markus Whittington Consult Reason/Comments: fever Do you want consulting provider notified?: Yes Primary care physician: Maulik Summers [facility] Course: Final diagnosis Syncopal episode, low-grade fevers Covid 19 ruled out, testing was negative Hyperlipidemia Vitamin D deficiency Anxiety/dementia/depression Gastroesophageal reflux disease DVT prophylaxis: Lovenox GI prophylaxis: Protonix Full code Discharge disposition Patient is being discharged in a stable condition with guarded prognosis to home. Patient will continue with home care in the outpatient setting. Patient will follow-up with Dr. Summers in the outpatient setting upon discharge. Patient will continue on oral antibiotics in the form of Ceftin 500 mg twice daily for the next 5 days. Total time taken is greater than 35 minutes. History of present illness This is a 79-year-old female who was recently admitted with possible syncopal episode along with fevers and left-sided neck pain and was being closely monitor ed. Patient was informed that she may have potentially been exposed to Covid although Covid 19 testing was negative. Patient had low-grade fevers upon admission and was initiated on broad-spectrum antibiotics. Patient does have chronic neck pain which is intermittent and underwent a neck x-ray showing no acute fracture or dislocation. Patient was also seen and evaluated by infectious disease and was maintained on ceftriaxone along with doxycycline and will continue with oral Ceftin 500 mg twice daily for the next 5 days to complete the course. Cultures remained negative. Currently no reports of chest pain, shortness of breath, or palpitations. Patient is afebrile. No reports of nausea or vomiting and patient is tolerating diet. Patient will be discharged home today. On exam vital signs are stable. Temp is 98.5F, pulse is 85, respirations are 18, blood pressure is 131/72, oxygen saturation is 94% on room air. Cardio S1, S2 are muffled. Respiratory system shows diminished breath sounds at the bases with no wheezing or rhonchi noted. Abdomen is soft and nontender. Nervous system shows no focal deficits. Please refer to medication reconciliation sheet for a list of medications. Patient Condition at Discharge: Fair Plan - Discharge Summary New Discharge Prescriptions: New Cefuroxime Axetil [Ceftin] 500 mg PO BID 5 Days #10 tab Continue Multivitamins, Thera [Multivitamin (formulary)] 1 tab PO DAILY Memantine [Namenda] 10 mg PO BID QUEtiapine [SEROquel] 25 mg PO HS Escitalopram [Lexapro] 30 mg PO HS Atorvastatin [Lipitor] 20 mg PO HS Omeprazole [PriLOSEC] 40 mg PO AC-BRKFST #30 capsule. Naproxen Sodium [Aleve] 440 mg PO DAILY PRN PRN Reason: Pain Or Fever > 100.5 Fluticasone Nasal [place] [Flonase Nasal [place]] 1 spray EA NOSTRIL BID Discharge Medication List Multivitamins, Thera [Multivitamin (formulary)] 1 tab PO DAILY 07/30/16 [History] Memantine [Namenda] 10 mg PO BID 02/28/18 [History] Escitalopram [Lexapro] 30 mg PO HS 09/01/18 [History] QUEtiapine [SEROquel] 25 mg PO HS 09/01/18 [History] Atorvastatin [Lipitor] 20 mg PO HS 04/24/19 [History] Omeprazole [PriLOSEC] 40 mg PO AC-BRKFST #30 capsule. 04/27/19 [Rx] Naproxen Sodium [Aleve] 440 mg PO DAILY PRN 04/29/19 [History] Fluticasone Nasal [place] [Flonase Nasal [place]] 1 spray EA NOSTRIL BID 02/08/20 [History] Cefuroxime Axetil [Ceftin] 500 mg PO BID 5 Days #10 tab 02/10/20 [Rx] Follow up Appointment(s)/Referral(s): Maulik Summers III, MD [Primary Care Provider] - 1-2 days [facility] Visiting Nurse, [NON-STAFF] - As Needed Activity/Diet/Wound Care/Special Instructions: Activity Limited until follow-up Follow-up with primary care provider upon discharge Continue current diet Continue with antibiotics for the next 5 days until finished Discharge Disposition: HOME WITH HOME HEALTH SERVICES
--- NOTE | 2020-02-10 15:36 | PN ---
PROGRESS NOTE DATE OF SERVICE: 02/10/2020 REASON FOR FOLLOWUP: Question of pneumonia. INTERVAL HISTORY: The patient is currently afebrile. The patient is breathing comfortably. Patient denies having any chest pain, cough. No nausea, no vomiting, no abdominal pain, no diarrhea. PHYSICAL EXAM: Blood pressure 118/70 with a pulse of 70, temperature is 97.5, she is 94% on room air. General description is an elderly female lying in bed in no distress. RESPIRATORY SYSTEM: Unlabored breathing, clear to auscultation anteriorly. HEART: S1, S2. Regular rate and rhythm. ABDOMEN: Soft, no tenderness. LABS: Hemoglobin 13.4, white count 6.9. Blood culture negative. DIAGNOSTIC IMPRESSION AND PLAN: Patient with low-grade fever with possible pneumonia. She will continue with a course of oral Ceftin for 1 week. Discussed with the nurse practitioner for the admitting team. MMODL / PATRICAN: [id number] / MTDGertrude
== END 2020-02-10 15:28 | disposition home health service (06) ==
LOC: EC 10:57 → 3NCARDOBS 13:02 → 1SOBS 13:11 → 4SSUR 13:45 → OBSVTOIN 02-10 09:08 → INTOOBSV 02-10 09:08 → UNDODISIN 02-10 15:28
PROVIDERS: ADMIT Internal Medicine; ATTEND Internal Medicine
DX: R55 Syncope and collapse (principal); R50.9 Fever, unspecified; E55.9 Vitamin D deficiency, unspecified; I10 Essential (primary) hypertension; E78.5 Hyperlipidemia, unspecified; G30.9 Alzheimer's disease, unspecified; F02.80 Dementia in other diseases classified elsewhere, unspecified severity, without behavioral disturbance, psychotic disturbance, mood disturbance, and anxiety; G89.29 Other chronic pain; M54.2 Cervicalgia; F32.9 Major depressive disorder, single episode, unspecified; F41.9 Anxiety disorder, unspecified; K21.9 Gastro-esophageal reflux disease without esophagitis; Z79.1 Long term (current) use of non-steroidal anti-inflammatories (NSAID); Z79.899 Other long term (current) drug therapy; Z88.1 Allergy status to other antibiotic agents; Z88.2 Allergy status to sulfonamides; Z20.828 Contact with and (suspected) exposure to other viral communicable diseases; Z96.653 Presence of artificial knee joint, bilateral; Z98.1 Arthrodesis status; Z86.14 Personal history of Methicillin resistant Staphylococcus aureus infection; Z82.49 Family history of ischemic heart disease and other diseases of the circulatory system; Z80.9 Family history of malignant neoplasm, unspecified
CPT/HCPCS: 96361 ×3; 96365; 96366; 99285; 36415; 93005; 80053; 80048 ×2; 83605 ×2; 84484; 85025 ×3; 85610; 85730; 86140 ×2; 81003; 87040 ×2; 84145 ×2; 72040; 71046; 74176; G0378 ×4; U0003; J0696 ×2; 96360

== ENCOUNTER 2020-07-15 17:18 | Observation (INO) | payer MEDICARE ==
--- NOTE | 2020-07-15 17:55 | ED ---
Upper Extremity HPI - General Source: family, RN notes reviewed, Caregiver Mode of arrival: wheelchair Limitations: altered mental status <Trent Muniz - Last Filed: 07/15/20 19:43> <Uriah Diaz - Last Filed: 07/15/20 19:58> - General Chief Complaint: Extremity Injury, Upper Stated Complaint: wrist pain Time Seen by Provider: 07/15/20 17:32 - History of Present Illness Initial Comments: This is a 80-year-old female presents emergency Department with chief complaint of left wrist pain, swelling. This was noted by caregiver this morning and seemed to worsen and was noted by second caregiver. They have no reports of any injury though patient has severe dementia. She does have a bed alarm in her r oom alarmed and they do not feel that she fell last night. He knows some redness, swelling to the left wrist and grimacing when you press on her left wrist. Patient does not give any information and she has severe dementia. (Trent Muniz) - Related Data Home Medications Medication Instructions Recorded Confirmed Multivitamins, Thera [Multivitamin 1 tab PO DAILY 07/30/16 07/15/20 (formulary)] Memantine [Namenda] 10 mg PO BID 02/28/18 07/15/20 Escitalopram [Lexapro] 30 mg PO DAILY 09/01/18 07/15/20 QUEtiapine [SEROquel] 25 mg PO HS 09/01/18 07/15/20 Atorvastatin [Lipitor] 20 mg PO HS 04/24/19 07/15/20 Naproxen Sodium [Aleve] 220 mg PO BID 04/29/19 07/15/20 Fluticasone Nasal [place] [Flonase 1 spray EA NOSTRIL BID 02/08/20 07/15/20 Nasal [place]] Aspirin EC [Ecotrin Low Dose] 81 mg PO DAILY 07/15/20 07/15/20 Cephalexin [Keflex] 500 mg PO Q12HR 07/15/20 07/15/20 Melatonin 5 mg PO HS 07/15/20 07/15/20 Metamucil Gummy 1 cap PO DAILY 07/15/20 07/15/20 Previous Rx's Medication Instructions Recorded Omeprazole [PriLOSEC] 40 mg PO BOY-JUSTINKFST #30 capsule. 04/27/19 Allergies Allergy/AdvReac Type Severity Reaction Status Date / Time amoxicillin Allergy Unknown Verified 07/15/20 19:24 erythromycin base Allergy Unknown Verified 07/15/20 19:20 [From Erythrocin] nitrofurantoin Allergy Unknown Verified 07/15/20 19:24 [From Macrobid] Sulfa (Sulfonamide Allergy Rash/Hives,difficulty Verified 07/15/20 19:20 Antibiotics) breathing Review of Systems ROS Other: All systems not noted in ROS Statement are negative. <Trent Muniz - Last Filed: 07/15/20 19:43> ROS Other: All systems not noted in ROS Statement are negative. <Uriah Diaz - Last Filed: 07/15/20 19:58> ROS Statement: Those systems with pertinent positive or pertinent negative responses have been documented in the HPI. Past Medical History Past Medical History: Chest Pain / Angina, Dementia Additional Past Medical History / Comment(s): cognitive problems per son, end stage dementia a/o x1 is baseline History of Any Multi-Drug Resistant Organisms: MRSA Date of last positivie culture/infection: 2012 MDRO Source:: THROAT Past Surgical History: Back Surgery, Joint Replacement Additional Past Surgical History / Comment(s): jas knees,carpal tunnel,neck surgery, rt shoulder Past Anesthesia/Blood Transfusion Reactions: No Reported Reaction Past Psychological History: No Psychological Hx Reported Smoking Status: Former smoker Past Alcohol Use History: None Reported Past Drug Use History: None Reported - Past Family History Father Family Medical History: Cancer Mother Family Medical History: Cancer Sister(s) Family Medical History: Myocardial Infarction ([place]) <Trent Muniz - Last Filed: 07/15/20 19:43> General Exam Limitations: altered mental status General appearance: alert, in no apparent distress Respiratory exam: Present: normal lung sounds bilaterally. Absent: respiratory distress, wheezes, rales, rhonchi, stridor Cardiovascular Exam: Present: regular rate, normal rhythm, normal heart sounds. Absent: systolic murmur, diastolic murmur, rubs, gallop, clicks Extremities exam: Present: other (Left wrist there is noted swelling, increased warmth and erythema noted patient has pain with palpation radial pulses equal bilaterally Reflux and 2 seconds no other areas of tenderness or deformity noted) <Trent Muniz - Last Filed: 07/15/20 19:43> Course Vital Signs 07/15/20 17:25 Temperature 98.3 F Pulse Rate 74 Respiratory 18 Rate Blood Pressure 142/77 O2 Sat by Pulse 97 Oximetry Medical Decision Making - Lab Data Result diagrams: 07/15/20 18:47 07/15/20 18:47 <Trent Muniz - Last Filed: 07/15/20 19:43> - Lab Data Result diagrams: 07/15/20 18:47 07/15/20 18:47 <Uriah Diaz - Last Filed: 07/15/20 19:58> - Medical Decision Making 80-year-old female presented for left wrist pain x-ray does not show evidence of fracture severe osteoarthritis. Patient does have an erythematous swollen joint concerning for possible infectious versus inflammatory process. Patient will be admitted for IV antibiotics and medicine with consult to orthopedics. (Trent Muniz) 80-year-old female history of dementia, unable to contribute to the history presenting with pain and swelling in the left wrist. There is erythema surrounding the risks this appears to be well demarcated within the skin. There is some pain with range of motion with the small degree of concern for underlyi nginfection within the joint. She has was started on broad-spectrum antibiotics. Overall she is afebrile, nontoxic. She has a normal white blood cell count with a mildly elevated CRP. Case discussed with Dr. Urias who will admit. (Uriah Diaz) - Lab Data Lab Results 07/15/20 07/15/20 Range/Units 18:47 18:47 WBC 9.1 (3.8-10.6) k/uL RBC 4.31 (3.80-5.40) m/uL Hgb 12.8 (11.4-16.0) gm/dL Hct 37.8 (34.0-46.0) % MCV 87.7 (80.0-100.0) fL MCH 29.7 (25.0-35.0) pg MCHC 33.8 (31.0-37.0) g/dL RDW 13.5 (11.5-15.5) % Plt Count 213 (150-450) k/uL MPV 8.4 Neutrophils % 73 % Lymphocytes % 17 % Monocytes % 6 % Eosinophils % 1 % Basophils % 0 % Neutrophils # 6.7 (1.3-7.7) k/uL Lymphocytes # 1.6 (1.0-4.8) k/uL Monocytes # 0.6 (0-1.0) k/uL Eosinophils # 0.1 (0-0.7) k/uL Basophils # 0.0 (0-0.2) k/uL ESR Cancelled Sodium 139 (137-145) mmol/L Potassium 4.0 (3.5-5.1) mmol/L Chloride 103 (98-107) mmol/L Carbon Dioxide 25 (22-30) mmol/L Anion Gap 11 mmol/L BUN 22 H (7-17) mg/dL Creatinine 0.46 L (0.52-1.04) mg/dL Est GFR (CKD-EPI)AfAm >90 (>60 ml/min/1.73 sqM) Est GFR (CKD-EPI)NonAf >90 (>60 ml/min/1.73 sqM) Glucose 102 H (74-99) mg/dL Uric Acid 1.9 L (3.7-7.4) mg/dL Calcium 9.2 (8.4-10.2) mg/dL Total Bilirubin 0.7 (0.2-1.3) mg/dL AST 25 (14-36) U/L ALT 14 (4-34) U/L Alkaline Phosphatase 73 (38-126) U/L C-Reactive Protein 37.5 H (<10.0) mg/L Total Protein 6.6 (6.3-8.2) g/dL Albumin 3.7 (3.5-5.0) g/dL Disposition <Trent Muniz - Last Filed: 07/15/20 19:43> <Uriah Diaz - Last Filed: 07/15/20 19:58> Clinical Impression: Septic arthritis Disposition: ADMITTED IP TO THIS HOSP Condition: Fair Referrals: Maulik Summers III, MD [Primary Care Provider] - 1-2 days
--- NOTE | 2020-07-15 18:13 | XR ---
EXAMINATION TYPE: XR wrist complete LT DATE OF EXAM: 07/15/2020 COMPARISON: NONE HISTORY: Pain TECHNIQUE: 4 views FINDINGS: There is narrowing and spurring at the first carpometacarpal joint. I see no fracture nor d islocation. Carpal bones are intact. There is narrowing of the scaphoid trapezium joint space with sp urring. IMPRESSION: Osteoarthritis. No fracture seen.
[2020-07-15 19:06] LABS: Basophils % (A) 0 %; Eosinophils # (A) 0.1 k/uL (0-0.7); Eosinophils % (A) 1 %; HCT 37.8 % (34.0-46.0); HGB 12.8 gm/dL (11.4-16.0); Lymphocytes # (A) 1.6 k/uL (1.0-4.8); Lymphocytes % (A) 17 %; MCH 29.7 pg (25.0-35.0); MCHC 33.8 g/dL (31.0-37.0); MCV 87.7 fL (80.0-100.0); Mean Platelet Volume 8.4; Monocytes # (A) 0.6 k/uL (0-1.0); Monocytes % (A) 6 %; Neutrophils # (A) 6.7 k/uL (1.3-7.7); Neutrophils % (A) 73 %; Platelet Count 213 k/uL (150-450); RBC 4.31 m/uL (3.80-5.40); RDW 13.5 % (11.5-15.5); WBC 9.1 k/uL (3.8-10.6)
[2020-07-15 19:25] LABS: ALT 14 U/L (4-34); AST 25 U/L (14-36); African American GFR (CKD) >90 (>60 ml/min/1.73 sqM); Albumin 3.7 g/dL (3.5-5.0); Alkaline Phosphatase 73 U/L (38-126); Anion Gap 11 mmol/L; Blood Urea Nitrogen 22 mg/dL (7-17); C Reactive Protein 37.5 mg/L (<10.0); Calcium 9.2 mg/dL (8.4-10.2); Carbon Dioxide 25 mmol/L (22-30); Chloride 103 mmol/L (98-107); Glucose 102 mg/dL (74-99); Non-African American GFR(CKD) >90 (>60 ml/min/1.73 sqM); Sodium 139 mmol/L (137-145); Total Bilirubin 0.7 mg/dL (0.2-1.3); Total Protein 6.6 g/dL (6.3-8.2); Uric Acid 1.9 mg/dL (3.7-7.4)
[2020-07-15] MEDS ORDERED: VANCOMYCIN IV PER PHARMACY 1 EACH MISC MISCELLANE PRN (19:43)
[2020-07-15] MEDS ORDERED: ACETAMINOPHEN TAB 325 MG TAB PO PRN (19:44)
[2020-07-15] MEDS ORDERED: HYDROcodone/APAP 5-325MG 1 EACH TAB PO PRN (19:44)
[2020-07-15] MEDS ORDERED: NALOXONE 0.4 MG/ML 1 ML VIAL IV PRN (19:44)
[2020-07-15] MEDS ORDERED: ONDANSETRON 4 MG/2 ML VIAL IVP PRN (19:44)
[2020-07-15] MEDS ORDERED: MELATONIN 5 MG TABLET PO SCH (21:00)
[2020-07-15] MEDS ORDERED: QUEtiapine 25 MG TAB PO SCH (21:00)
[2020-07-15] MEDS ORDERED: ATORVASTATIN 20 MG TAB PO SCH (21:00)
[2020-07-15] MEDS: MEMANTINE 10 MG TAB PO SCH (22:24)
[2020-07-15] MEDS: VANCOMYCIN 1,250 MG in SODIUM CHLORIDE 0.9% 250 ML IVPB SCH (22:25)
[2020-07-15] MEDS: FLUTICASONE 50MCG/SPRAY NASAL 16GM EA NOSTRIL SCH (22:31)
[2020-07-16] MEDS ORDERED: PANTOPRAZOLE 40 MG TABLET PO SCH (07:30)
[2020-07-16 09:00] VITALS: BP 132/76; PULSE 80; RESP 18; TEMP 99.3
[2020-07-16] MEDS ORDERED: MULTIVITAMINS, THERA 1 EACH TAB PO SCH (09:00)
[2020-07-16] MEDS ORDERED: ESCITALOPRAM 10 MG TAB PO SCH (09:00)
[2020-07-16] MEDS ORDERED: PSYLLIUM HUSK 100% 6 GM PACKET PO SCH (09:00)
--- NOTE | 2020-07-16 10:13 | P.CNOR ---
History of Present Illness - HPI Consult date: 07/16/20 Consult reason: joint pain (Left wrist pain and swelling) History of present illness: Patient is a 80-year-old female who is seen and examined today but her bedside. She is coming by her daughter at bedside. The patient is very pleasant but has severe dementia. She is alert and will follow some simple commands and answer some simple questions as well. She does not have a grasp of events place or time. Apparently the patient has been having swelling and pain at her left wrist since yesterday. The daughter was with her as she lives with her and they have caretakers as well. Apparently they do not have any specific incident of trauma or injury. However the patient had acute onset of swelling and mild redness at her left wrist and some grimacing with manipulation at the wrist itself. There is some concern in this regard and there are brought in for evaluation to the emergency room yesterday. The patient had mildly elevated CRP and ESR but negative white count. She has not had any fevers or chills. The patient has had some limited use of her left upper extremity and is known as significant arthritis but this issue with the swelling and redness has not occurred for her before as per her daughter. They deny any history of gout or other inflammatory arthropathy. The deny any specific injury. Deny any other infection at the left upper extremity or any cuts or bites. She does take anti biotics for chronic urinary tract infections. Review of Systems As stated per HPI. No history of any gout or inflammatory arthropathy. No specific injury or trauma that is known. Positive history of chronic UTI for which she takes antibiotics. No other specific injury at her upper extremity. No fevers no chills. 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 Year Discovered:: 2012 MDRO Source:: THROAT Past Surgical History: Back Surgery, Joint Replacement Additional Past Surgical History / Comment(s): jas knees,carpal tunnel,neck surgery, rt shoulder Past Anesthesia/Blood Transfusion Reactions: No Reported Reaction Past Psychological History: Anxiety Smoking Status: Former smoker Past Alcohol Use History: None Reported Additional Past Alcohol Use History / Comment(s): Daughter states pt stopped smoking around 1989 Past Drug Use History: None Reported - Past Family History Father Family Medical History: Cancer Mother Family Medical History: Cancer Sister(s) Family Medical History: Myocardial Infarction ([place]) Medications and Allergies Home Medications Medication Instructions Recorded Confirmed Type Multivitamins, Thera [Multivitamin 1 tab PO DAILY 07/30/16 07/15/20 History (formulary)] Memantine [Namenda] 10 mg PO BID 02/28/18 07/15/20 History Escitalopram [Lexapro] 30 mg PO DAILY 09/01/18 07/15/20 History QUEtiapine [SEROquel] 25 mg PO HS 09/01/18 07/15/20 History Atorvastatin [Lipitor] 20 mg PO HS 04/24/19 07/15/20 History Omeprazole [PriLOSEC] 40 mg PO AC-BRKFST #30 capsule. 04/27/19 07/15/20 Rx Naproxen Sodium [Aleve] 220 mg PO BID 04/29/19 07/15/20 History Fluticasone Nasal [place] [Flonase 1 spray EA NOSTRIL BID 02/08/20 07/15/20 History Nasal [place]] Aspirin EC [Ecotrin Low Dose] 81 mg PO DAILY 07/15/20 07/15/20 History Cephalexin [Keflex] 500 mg PO Q12HR 07/15/20 07/15/20 History Melatonin 5 mg PO HS 07/15/20 07/15/20 History Metamucil Gummy 1 cap PO DAILY 07/15/20 07/15/20 History Allergies Allergy/AdvReac Type Severity Reaction Status Date / Time amoxicillin Allergy Unknown Verified 07/15/20 19:24 erythromycin base Allergy Unknown Verified 07/15/20 19:20 [From Erythrocin] nitrofurantoin Allergy Unknown Verified 07/15/20 19:24 [From Macrobid] Sulfa (Sulfonamide Allergy Rash/Hives,difficulty Verified 07/15/20 19:20 Antibiotics) breathing Physical Examination Osteopathic Statement: *. No significant issues noted on an osteopathic structural exam other than those noted in the History and Physical/Consult. - Wrist & Hand left Location of pain: dorsal wrist (The patient is awake and alert and does follow some sacral commands and answer some simple questions but is unaware of her place and specific time. She appears to be adequately hydrated and comfortable. At her left upper extremity there is some swelling around her left wrist diffusely.), radial wrist (There is some swelling more pronounced toward the radial aspect of her wrist at the base of her thumb. There is very mild erythema. There is no specific fluid collection there is no tense skin. There is somewhat soft. She does have some grimacing with palpation around her CMC joint thumb base ), radial hand (She is able to bend and move her elbow fingers and thumb. She has some slight motion at her wrist voluntarily as well. She will let me palpate the area and has some manageable pain with passive stretch. There is no pain out of proportion with exam. There are no sausage digits. ), thumb (Her wrist and hand are not tender to light touch. There is no obvious bruising. There is no streaking along her wrist.) Results - Labs Labs: Abnormal Lab Results - Last 24 Hours (Table) 07/15/20 07/15/20 Range/Units 18:47 19:33 ESR 30 H (0-20) mm/hr BUN 22 H (7-17) mg/dL Creatinine 0.46 L (0.52-1.04) mg/dL Glucose 102 H (74-99) mg/dL Uric Acid 1.9 L (3.7-7.4) mg/dL C-Reactive Protein 37.5 H (<10.0) mg/L H & H 07/15/20 Range/Units 18:47 Hgb 12.8 (11.4-16.0) gm/dL Hct 37.8 (34.0-46.0) % Result Diagrams: 07/15/20 18:47 07/15/20 18:47 - Diagnostic results Wrist/Hand x-ray: report reviewed (There is some chronic demyelinization at the trapezium and maybe some chronic collapse. There is no obvious fracture line.), image reviewed (At her left wrist she has severe CMC joint arthritis at the base of her thumb. She has severe scaphoid trapezium and trapezial metacarpal arthritis. There is significant joint spurring around the base of her thumb and radial wrist. I do not see any obvious fracture. ) Assessment and Plan Assessment: Acute left wrist pain and swelling. Given her exam and findings it does not appear that she has septic arthritis. She has severe radial sided carpal arthritis and likely has acute strain I Do not see an obvious fracture line but there could be fracture along the osteophytes at the carpometacarpal joint Her white count is negative and she is not having any streaking or fluid collection to suggest abscess Plan: Acute left wrist pain and swelling. Given her exam and findings it does not appear that she has septic arthritis. She has severe radial sided carpal arthritis and likely has acute strain I Do not see an obvious fracture line but there could be fracture along the osteophytes at the carpometacarpal joint Her white count is negative and she is not having any streaking or fluid collection to suggest abscess With the patient's clinical picture I do not believe that she has septic arthritis at her wrist. She is able to gently move her wrist and is having only mild swelling with some mild erythema. There is no streaking and she is able to have gentle passive range of motion without significant pain. She does not have any history of inflammatory arthropathy or gout. With her exam findings I do not think that I would perform an aspiration at this point at her wrist. It is unlikely to yield any specific fluid and if there is superficial infection and may pose her some risk. She may have some early cellulitis and I think antibiotic treatment and prophylactic antibiotics are appropriate. She should go home with prophylactic antibiotics per medicine. I think that she would be more comfortable with a wrist splint. She has severe osteoarthritis at the base of her thumb and radial carpus. I think a thumb spica wrist splint would help with her comfort and healing. I do not see an obvious fracture line but it is possible that she had a fracture of an osteophyte or some collapse at her trapezium. Either way a wrist splint for treatment and immobilization would be appropriate treatment for this. We have ordered a wrist splint for her and have written a prescription for case management for the patient. I do not think that we need acute further imaging at this point. The patient is doing fairly well and the daughter would like to take her home today if possible. I think that is okay and it is reasonable to treat patient with a splint, prophylactic antibiotics and close follow-up as an outpatient. If she is having worsening we can do further aspiration and imaging an outpatient basis. I discussed this with them answered their questions best my ability and they are agreeable. Time with Patient: Greater than 30
[2020-07-16] MEDS: MEMANTINE 10 MG TAB PO SCH (10:52)
[2020-07-16] MEDS: FLUTICASONE 50MCG/SPRAY NASAL 16GM EA NOSTRIL SCH (11:03)
[2020-07-16] MEDS: VANCOMYCIN 1,250 MG in SODIUM CHLORIDE 0.9% 250 ML IVPB SCH ×2 (11:08→11:30)
--- NOTE | 2020-07-16 11:41 | P.HPIM ---
History of Present Illness A pleasant 71-year-old female came in with severe pain and redness in the left hand patient is unable to provide any history. Patient started having this redness and swelling in the left hand and wrist yesterday morning. 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 Patient has a swelling and mild redness in the left wrist with some grimacing with active and passive movements of the left hand. Patient is already on Keflex which she was started by primary care physician for her urinary tract infections. Patient had an x-ray of the wrist which showed arthritis consistent with osteoarthritis. Patient doesn't have any history of gout. Patient was evaluated by orthopedic surgery who cleared for discharge and they believe the swelling may be related to severe osteoarthritis or sprained left wrist and anti-intermittent is are being recommended. Although mild cellulitis cannot be ruled out patient does have history of MRSA patient is already on Keflex which does covers strap. Patient has ALLERGY to sulfa drugs because of which I cannot use Bactrim patient will be discharged on clindamycin to cover MRSA for 5 days. Review of Systems REVIEW OF SYSTEMS: CONSTITUTIONAL: No fever, no malaise, no fatigue. HEENT: No recent visual problems or hearing problems. Denied any sore throat. CARDIOVASCULAR: No chest pain, orthopnea, PND, no palpitations, no syncope. PULMONARY: No shortness of breath, no cough, no hemoptysis. GASTROINTESTINAL: No diarrhea, no nausea, no vomiting, no abdominal pain. NEUROLOGICAL: No headaches, no weakness, no numbness. HEMATOLOGICAL: Denies any bleeding or petechiae. GENITOURINARY: Denies any burning micturition, frequency, or urgency. MUSCULOSKELETAL/RHEUMATOLOGICAL: As mentioned in HPI ENDOCRINE: Denies any polyuria or polydipsia. The rest of the 14-point review of systems is negative. 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 Date of last positivie culture/infection: 2012 MDRO Source:: THROAT Past Surgical History: Back Surgery, Joint Replacement Additional Past Surgical History / Comment(s): jas knees,carpal tunnel,neck surgery, rt shoulder Past Anesthesia/Blood Transfusion Reactions: No Reported Reaction Past Psychological History: Anxiety Smoking Status: Former smoker Past Alcohol Use History: None Reported Additional Past Alcohol Use History / Comment(s): Daughter states pt stopped smoking around 1989 Past Drug Use History: None Reported - Past Family History Father Family Medical History: Cancer Mother Family Medical History: Cancer Sister(s) Family Medical History: Myocardial Infarction ([place]) Medications and Allergies Home Medications Medication Instructions Recorded Confirmed Type Multivitamins, Thera [Multivitamin 1 tab PO DAILY 07/30/16 07/15/20 History (formulary)] Memantine [Namenda] 10 mg PO BID 02/28/18 07/15/20 History Escitalopram [Lexapro] 30 mg PO DAILY 09/01/18 07/15/20 History QUEtiapine [SEROquel] 25 mg PO HS 09/01/18 07/15/20 History Atorvastatin [Lipitor] 20 mg PO HS 04/24/19 07/15/20 History Omeprazole [PriLOSEC] 40 mg PO AC-BRKFST #30 capsule. 04/27/19 07/15/20 Rx Naproxen Sodium [Aleve] 220 mg PO BID 04/29/19 07/15/20 History Fluticasone Nasal [place] [Flonase 1 spray EA NOSTRIL BID 02/08/20 07/15/20 History Nasal [place]] Aspirin EC [Ecotrin Low Dose] 81 mg PO DAILY 07/15/20 07/15/20 History Melatonin 5 mg PO HS 07/15/20 07/15/20 History Metamucil Gummy 1 cap PO DAILY 07/15/20 07/15/20 History Cephalexin [Keflex] 500 mg PO Q8HR #0 07/16/20 07/15/20 Rx Clindamycin [Cleocin] 300 mg PO Q6H #20 cap 07/16/20 Rx Allergies Allergy/AdvReac Type Severity Reaction Status Date / Time amoxicillin Allergy Unknown Verified 07/15/20 19:24 erythromycin base Allergy Unknown Verified 07/15/20 19:20 [From Erythrocin] nitrofurantoin Allergy Unknown Verified 07/15/20 19:24 [From Macrobid] Sulfa (Sulfonamide Allergy Rash/Hives,difficulty Verified 07/15/20 19:20 Antibiotics) breathing Physical Exam Vitals: Vital Signs Temp Pulse Pulse Resp BP BP Pulse Ox 07/16/20 08:59 99.3 F 80 18 132/76 92 L 07/16/20 01: 98.8 F 76 13 140/73 95 07/15/20 20:59 16 07/15/20 20:54 98.6 F 72 16 154/66 98 07/15/20 20:35 98.3 F 76 18 137/87 97 07/15/20 17:25 98.3 F 74 18 142/77 97 Intake and Output 07/15/20 07/16/20 07/16/20 22:59 06:59 14:59 Other: Voiding Method Diaper Diaper Incontinent Incontinent # Voids 1 1 1 # Bowel Movements 1 Weight 68.039 kg PHYSICAL EXAMINATION: GENERAL: The patient is alert and oriented x3, not in any acute distress. Well developed, well nourished. HEENT: Pupils are round and equally reacting to light. EOMI. No scleral icterus. No conjunctival pallor. Normocephalic, atraumatic. No pharyngeal erythema. No thyromegaly. CARDIOVASCULAR: S1 and S2 present. No murmurs, rubs, or gallops. PULMONARY: Chest is clear to auscultation, no wheezing or crackles. ABDOMEN: Soft, nontender, nondistended, normoactive bowel sounds. No palpable organomegaly. MUSCULOSKELETAL: Left wrist and left hand is swollen with redness and mild local is of temperature. EXTREMITIES: No cyanosis, clubbing, or pedal edema. NEUROLOGICAL: Gross neurological examination did not reveal any focal deficits. SKIN: No rashes. Results CBC & Chem 7: 07/15/20 18:47 07/15/20 18:47 Labs: Abnormal Lab Results - Last 24 Hours (Table) 07/15/20 07/15/20 Range/Units 18:47 19:33 ESR 30 H (0-20) mm/hr BUN 22 H (7-17) mg/dL Creatinine 0.46 L (0.52-1.04) mg/dL Glucose 102 H (74-99) mg/dL Uric Acid 1.9 L (3.7-7.4) mg/dL C-Reactive Protein 37.5 H (<10.0) mg/L Thrombosis Risk Factor Assmnt - Choose All That Apply Each Factor Represents 1 point: Obesity (BMI >25) Each Risk Factor Represents 3 Points: Age 75 years or older Thrombosis Risk Factor Assessment Total Risk Factor Score: 4 Thrombosis Risk Factor Assessment Level: Moderate Risk Assessment and Plan Plan: -Left wrist pain, redness with swelling of the left wrist: Cellulitis cannot be ruled out because of the history of MRSA patient will be started on clindamycin patient is already on Keflex dose of which will be changed to 3 times a day for 5 more days. Patient may have osteoarthritis of the left wrist sprain the left wrist which is causing her left wrist pain. Possibility of septic arthritis or gouty arthritis is low. -Dementia advanced Depression -arthritis of the multiple joints primary osteoarthritis patient does have a deformities in the hands as well
[2020-07-17] MEDS ORDERED: VANCOMYCIN TROUGH DUE 1 EACH MISC MISCELLANE ONE (08:00)
--- NOTE | 2020-07-17 13:20 | P.DS ---
Providers Date of admission: 07/15/20 19:43 Expected date of discharge: 07/16/20 Attending physician: Meghann Urias Consults: 07/15/20 19:44 Consult Physician Urgent Consulting Provider: Adrian Vergara Consult Reason/Comments: Rule out septic arthritis, left wrist pain Do you want consulting provider notified?: Yes Primary care physician: Maulik Rose [facility] Course: Refer to HPI for further details Patient Condition at Discharge: Fair Plan - Discharge Summary Discharge Rx Participant: No New Discharge Prescriptions: New Clindamycin [Cleocin] 300 mg PO Q6H #20 cap Continue Multivitamins, Thera [Multivitamin (formulary)] 1 tab PO DAILY Memantine [Namenda] 10 mg PO BID QUEtiapine [SEROquel] 25 mg PO HS Escitalopram [Lexapro] 30 mg PO DAILY Atorvastatin [Lipitor] 20 mg PO HS Omeprazole [PriLOSEC] 40 mg PO AC-BRKFST #30 capsule. Naproxen Sodium [Aleve] 220 mg PO BID Fluticasone Nasal [place] [Flonase Nasal [place]] 1 spray EA NOSTRIL BID Aspirin EC [Ecotrin Low Dose] 81 mg PO DAILY Metamucil Gummy 1 cap PO DAILY Melatonin 5 mg PO HS Changed Cephalexin [Keflex] 500 mg PO Q8HR #0 Discharge Medication List Multivitamins, Thera [Multivitamin (formulary)] 1 tab PO DAILY 07/30/16 [History] Memantine [Namenda] 10 mg PO BID 02/28/18 [History] Escitalopram [Lexapro] 30 mg PO DAILY 09/01/18 [History] QUEtiapine [SEROquel] 25 mg PO HS 09/01/18 [History] Atorvastatin [Lipitor] 20 mg PO HS 04/24/19 [History] Omeprazole [PriLOSEC] 40 mg PO AC-BRKFST #30 capsule. 04/27/19 [Rx] Naproxen Sodium [Aleve] 220 mg PO BID 04/29/19 [History] Fluticasone Nasal [place] [Flonase Nasal [place]] 1 spray EA NOSTRIL BID 02/08/20 [History] Aspirin EC [Ecotrin Low Dose] 81 mg PO DAILY 07/15/20 [History] Melatonin 5 mg PO HS 07/15/20 [History] Metamucil Gummy 1 cap PO DAILY 07/15/20 [History] Cephalexin [Keflex] 500 mg PO Q8HR #0 07/16/20 [Rx] Clindamycin [Cleocin] 300 mg PO Q6H #20 cap 07/16/20 [Rx] Follow up Appointment(s)/Referral(s): Adrian Vergara DO [Doctor of Osteopathic Medicine] - 07/17/20 2:15 pm Maulik Summers III, MD [Primary Care Provider] - 07/21/20 12:30 pm [facility], [NON-STAFF] - Patient Instructions/Handouts: Septic Arthritis (DC) Activity/Diet/Wound Care/Special Instructions: Left upper extremity thumb spica wrist splint to be worn at all times. May Remove for bathing and hygiene and evaluation of the area and skin. May use left upper extremity with the wrist splint on for light activities of daily living less than 3 pounds Discharge Disposition: HOME SELF-CARE
== END 2020-07-16 17:09 | disposition home or self-care (01) ==
LOC: EC 17:18 → 4SSUR 19:43
PROVIDERS: ADMIT Internal Medicine; ATTEND Internal Medicine
DX: M19.032 Primary osteoarthritis, left wrist (principal); M21.942 Unspecified acquired deformity of hand, left hand; M21.941 Unspecified acquired deformity of hand, right hand; M25.432 Effusion, left wrist; M79.89 Other specified soft tissue disorders; M19.042 Primary osteoarthritis, left hand; F03.90 Unspecified dementia, unspecified severity, without behavioral disturbance, psychotic disturbance, mood disturbance, and anxiety; R79.82 Elevated C-reactive protein (CRP); N39.0 Urinary tract infection, site not specified; M19.90 Unspecified osteoarthritis, unspecified site; F41.9 Anxiety disorder, unspecified; R32 Unspecified urinary incontinence; E66.9 Obesity, unspecified; Z68.26 Body mass index [BMI] 26.0-26.9, adult; F32.9 Major depressive disorder, single episode, unspecified; M89.49 Other hypertrophic osteoarthropathy, multiple sites; Z87.01 Personal history of pneumonia (recurrent); Z79.899 Other long term (current) drug therapy; Z79.82 Long term (current) use of aspirin; Z79.1 Long term (current) use of non-steroidal anti-inflammatories (NSAID); Z79.2 Long term (current) use of antibiotics; Z88.2 Allergy status to sulfonamides; Z88.1 Allergy status to other antibiotic agents; Z88.0 Allergy status to penicillin; Z86.14 Personal history of Methicillin resistant Staphylococcus aureus infection; Z87.891 Personal history of nicotine dependence; Z82.49 Family history of ischemic heart disease and other diseases of the circulatory system; Z80.9 Family history of malignant neoplasm, unspecified
CPT/HCPCS: 29125; 96365 ×2; 96366 ×2; 99284; 36415; 80053; 85652; 84550; 85025; 86140; 87040; 73110; G0378 ×2; J3370 ×2; J0696

== ENCOUNTER → 2020-12-17 | Outpatient (CLI) | payer MEDICARE ==
--- NOTE | 2020-12-19 12:17 | ECHOF ---
Referral Reason:R01.1 cardiac murmur MEASUREMENTS -------- HEIGHT: 160.0 cm WEIGHT: 72.6 kg BP: 145/67 RVIDd: 2.8 cm (< 3.3) IVSd: 1.3 cm (0.6 - 1.1) LVIDd: 4.5 cm (3.9 - 5.3) LVPWd: 1.4 cm (0.6 - 1.1) IVSs: 1.7 cm LVIDs: 3.1 cm LVPWs: 1.6 cm LA Diam: 3.3 cm (2.7 - 3.8) Ao Diam: 2.6 cm (2.0 - 3.7) AV Cusp: 1.7 cm (1.5 - 2.6) MV EXCURSION: 13.883 mm (> 18.000) MV EF SLOPE: 50 mm/s (70 - 150) EPSS: 0.5 cm MV E Brooks: 1.09 m/s MV DecT: 241 ms MV A Brooks: 1.15 m/s MV E/A Ratio: 0.95 TAPSE: 21.17 mm FINDINGS -------- Sinus rhythm. This was a technically adequate study. The left ventricular size is normal. There is moderate concentric left ventricular hypertrophy. O verall left ventricular systolic function is normal with, an EF between 55 - 60 %. The right ventricle is normal in size. The left atrium is normal in size. The right atrial size is normal. Interatrial and interventricular septum intact. There is mild aortic valve sclerosis. The mitral valve leaflets are mildly thickened. There is trace to mild mitral regurgitation. The tricuspid valve appears structurally normal. Trace tricuspid regurgitation present. Unable to estimate RVSP due to inadequate TR jet spectral doppler profile. Trace/mild (physiologic) pulmonic regurgitation. The aortic root size is normal. Normal inferior vena cava with normal inspiratory collapse consistent with estimated right atrial pre ssure of 5 mmHg. Echo free space indicative of a pericardial fat pad. There is a trivial pericardial effusion presen t. CONCLUSIONS -------- 1. There is moderate concentric left ventricular hypertrophy. 2. Overall left ventricular systolic function is normal with, an EF between 55 - 60 %. 3. The left atrium is normal in size. 4. There is mild aortic valve sclerosis. 5. There is trace to mild mitral regurgitation. 6. Trace tricuspid regurgitation present. 7. Echo free space indicative of a pericardial fat pad. 8. There is a trivial pericardial effusion present. ECONOMIC DEVELOPER: Alisson Woodruff RDCS
== END | disposition home or self-care (01) ==
LOC: RADECHMAIN 11:27
PROVIDERS: ATTEND Family Medicine
DX: I51.7 Cardiomegaly (principal); I34.0 Nonrheumatic mitral (valve) insufficiency; I35.8 Other nonrheumatic aortic valve disorders; I31.3 Pericardial effusion (noninflammatory)
CPT/HCPCS: 93306

== ENCOUNTER 2023-01-26 15:49 | Emergency (ER) | payer MEDICARE ==
[2023-01-26 16:05] VITALS: RESP 18; TEMP 98.6
--- NOTE | 2023-01-26 17:29 | CT ---
EXAMINATION TYPE: CT brain amara interiano con DATE OF EXAM: 01/26/2023 COMPARISON: 09/01/2018 HISTORY: fall hit head CT DLP: 1931.6 mGycm, Automated exposure control for dose reduction was used. CONTRAST: Patient injected with 0 mL of Isovue 300. CT of the brain is performed utilizing 3 mm thick sections through the posterior fossa and 3 mm thick sections through the remaining calvarium. Study is performed within 24 hours of arrival to the hospital. No abnormal hyperdensity is present to suggest an acute intracranial hemorrhage. No mass lesion is evident. No acute infarcts are evident. Ventricles and sulci are prominent for the patient age. Paranasal sinuses and mastoid air cells within the [id number] are clear. IMPRESSIONS: 1. Atrophy. 2. No acute intracranial process. Follow-up MRI can be performed as clinically indicated. CT cervical spine. COMPARISON: None CT of the cervical spine is performed in the axial plane at 2 mm thick sections. Reconstructed image s in the coronal, and sagittal plane are reviewed on the computer. There is spinal canal narrowing at the C5-6 level with an AP diameter of 0.9 cm. Uncovertebral joint hypertrophy is contributing to foraminal stenosis C6-7 and C5-6 and C4-5 and C3-4 . Anterior cervical fusion is present at C3-4 and C6-7. Disc spaces are present C4-5 C5-6. No acute fractures are evident. Vertebral body heights are preserved. IMPRESSIONS: 1. Postsurgical changes cervical spine. 2. No acute osseous abnormality cervical spine. 3. Spinal canal stenosis C5-6 4. Uncovertebral joint hypertrophy contributing to foraminal stenosis discussed above.
[2023-01-26] MEDS ORDERED: LIDOCAINE 1% INJ 10MG/ML (20 ML MDV) SQ ONE (18:07)
--- NOTE | 2023-01-26 18:19 | ED ---
Fall HPI - General Chief Complaint: Fall Stated Complaint: fall Time Seen by Provider: 01/26/23 16:09 Source: patient Mode of arrival: EMS - History of Present Illness Initial Comments: 82-year-old female with history of dementia presenting with chief complaint of head injury. Patient was walking into her house assisted by her home health aide when she fell backwards hitting her head. Home health aide at bedside denies any loss of consciousness. Patient has not any blood thinners. She does have a laceration to the back of the head approximately 3 cm. Daughter bedside states the patient appears to be at her baseline. She was placed in a c-collar by EMS. - Related Data Home Medications Medication Instructions Recorded Confirmed Multivitamins, Thera [Multivitamin 1 tab PO DAILY 07/30/16 07/15/20 (formulary)] Memantine [Namenda] 10 mg PO BID 02/28/18 07/15/20 Escitalopram [Lexapro] 30 mg PO DAILY 09/01/18 07/15/20 QUEtiapine [SEROquel] 25 mg PO HS 09/01/18 07/15/20 Atorvastatin [Lipitor] 20 mg PO HS 04/24/19 07/15/20 Naproxen Sodium [Aleve] 220 mg PO BID 04/29/19 07/15/20 Fluticasone Nasal [place] [Flonase 1 spray EA NOSTRIL BID 02/08/20 07/15/20 Nasal [place]] Aspirin EC [Ecotrin Low Dose] 81 mg PO DAILY 07/15/20 07/15/20 Melatonin 5 mg PO HS 07/15/20 07/15/20 Metamucil Gummy 1 cap PO DAILY 07/15/20 07/15/20 Previous Rx's Medication Instructions Recorded Omeprazole [PriLOSEC] 40 mg PO AC-BRKFST #30 capsule. 04/27/19 Cephalexin [Keflex] 500 mg PO Q8HR #0 07/16/20 Clindamycin [Cleocin] 300 mg PO Q6H #20 cap 07/16/20 Allergies Allergy/AdvReac Type Severity Reaction Status Date / Time amoxicillin Allergy Unknown Verified 07/15/20 19:24 erythromycin base Allergy Unknown Verified 07/15/20 19:20 [From Erythrocin] nitrofurantoin Allergy Unknown Verified 07/15/20 19:24 [From Macrobid] Sulfa (Sulfonamide Allergy Rash/Hives,difficulty Verified 07/15/20 19:20 Antibiotics) breathing Review of Systems ROS Statement: Those systems with pertinent positive or pertinent negative responses have been documented in the HPI. ROS Other: All systems not noted in ROS Statement are negative. 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 Date of last positivie culture/infection: 2012 MDRO Source:: THROAT Past Surgical History: Back Surgery, Joint Replacement Additional Past Surgical History / Comment(s): jas knees,carpal tunnel,neck surgery, rt shoulder Past Anesthesia/Blood Transfusion Reactions: No Reported Reaction Past Psychological History: Anxiety Smoking Status: Former smoker Past Alcohol Use History: None Reported Past Drug Use History: None Reported - Past Family History Father Family Medical History: Cancer Mother Family Medical History: Cancer Sister(s) Family Medical History: Myocardial Infarction ([place]) General Exam Limitations: altered mental status, physical limitation General appearance: alert, in no apparent distress Expanded Head exam: Present: laceration (3 cm posterior portion of scalp) Eye exam: Present: normal appearance, PERRL, EOMI. Absent: scleral icterus, conjunctival injection, periorbital swelling Pupils: Present: normal accommodation Neck exam: Present: normal inspection Respiratory exam: Present: normal lung sounds bilaterally. Absent: respiratory distress, wheezes, rales, rhonchi, stridor Cardiovascular Exam: Present: regular rate, normal rhythm, normal heart sounds. Absent: systolic murmur, diastolic murmur, rubs, gallop, clicks Neurological exam: Present: alert, altered (Baseline) Psychiatric exam: Present: normal affect, normal mood Expanded Type of lesion: Present: laceration (3cm, scalp) Course Vital Signs 01/26/23 01/26/23 15:58 18:34 Temperature 98.6 F Pulse Rate 67 63 Respiratory 18 18 Rate Blood Pressure 143/88 139/109 O2 Sat by Pulse 97 96 Oximetry Procedures - Laceration Laceration #1 Consent Obtained: verbal consent Indication: laceration Site: scalp Size (cm): 3 Description: linear Depth: simple, single layer Anesthetic Used: lidocaine 1%, without epi Anesthesia Technique: local infiltration Pre-repair: wound explored Type of Sutures: other (jonathon) Patient Tolerated Procedure: well Medical Decision Making - Medical Decision Making Was pt. sent in by a medical professional or institution ([facility], PRODUCTION PLANNER, urgent care, hospital, or alf...) When possible be specific @ -No Did you speak to anyone other than the patient for history (EMS, parent, family, police, friend...)? What history was obtained from this source @ -History obtained from daughter and home health aide Did you review nursing and triage notes (agree or disagree)? Why? @ -I reviewed and agree with nursing and triage notes Were old charts reviewed (outside hosp., previous admission, EMS record, old EKG, old radiological studies, urgent care reports/EKG's, alf records)? Report findings @ -No old charts were reviewed Differential Diagnosis (chest pain, altered mental status, abdominal pain women, abdominal pain men, vaginal bleeding, weakness, fever, dyspnea, syncope, heada jesus, dizziness, GI bleed, back pain, seizure, CVA, palpatations, mental health, musculoskeletal)? @ -not applicable EKG interpreted by me (3pts min.). @ -As above X-rays interpreted by me (1pt min.). @ -None done CT interpreted by me (1pt min.). @ -CT shows no acute intracranial process or cervical spine fracture U/S interpreted by me (1pt. min.). @ -None done What testing was considered but not performed or refused? (CT, X-rays, U/S, labs)? Why? @ -None What meds were considered but not given or refused? Why? @ -None Did you discuss the management of the patient with other professionals (professionals i.e. [facility] Chen, PRODUCTION PLANNER, lab, RT, psych nurse, renal social worker, satellite television installer, teacher, credit products officer, case finishing machine adjuster)? Give summary @ -No Was smoking cessation discussed for >3mins.? @ -No Was critical care preformed (if so, how long)? @ -No Were there social determinants of health that impacted care today? How? (Homelessness, low income, unemployed, alcoholism, drug addiction, transportation, low edu. Level, literacy, decrease access to med. care, penitentiary, rehab)? @ -No Was there de-escalation of care discussed even if they declined (Discuss DNR or withdrawal of care, Hospice)? DNR status @ -No What co-morbidities impacted this encounter? (DM, HTN, Smoking, COPD, CAD, Cancer, CVA, ARF, Chemo, Hep., AIDS, mental health diagnosis, sleep apnea, morbid obesity)? @ -None Was patient admitted / discharged? Hospital course, mention meds given and route, prescriptions, significant lab abnormalities, going to OR and other pertinent info. @ -82-year-old female with history of dementia presenting with chief complaint of head injury after a trip and fall backwards this afternoon. No loss of consciousness or blood thinners. C-collar placed by EMS. CT negative for acute intracranial process or cervical spine fracture. The laceration is repaired. Follow-up with PCP. Report back to ER with any new or worsening symptoms. Discussed return parameters and answered all questions. Patient conveyed verbal understanding and agreed to the plan. I discussed this case in detail with my attending Dr. Molina Undiagnosed new problem with uncertain prognosis? @ -No Drug Therapy requiring intensive monitoring for toxicity (Heparin, Nitro, Insulin, Cardizem)? @ -No Were any procedures done? @ -Repair of scalp laceration Diagnosis/symptom? @ -Scalp laceration Acute, or Chronic, or Acute on Chronic? @ -Acute Uncomplicated (without systemic symptoms) or Complicated (systemic symptoms)? @ -Uncomplicated. Side effects of treatment? @ -No Exacerbation, Progression, or Severe Exacerbation? @ -No Poses a threat to life or bodily function? How? (Chest pain, [place], [place], pneumonia, PE, COPD, DKA, ARF, appy, cholecystitis, CVA, Diverticulitis, Homicidal, [place]den icidal, threat to staff... and all critical care pts) @ -No Disposition Clinical Impression: Scalp laceration Disposition: HOME SELF-CARE Condition: Fair Instructions (If sedation given, give patient instructions): Fall Prevention for Older Adults (ED), Head Injury (ED), Staple Care (ED) Additional Instructions: Follow-up with PCP. Report back to ER with any new or worsening symptoms. Jonathon may be removed in 7-10 days. Is patient prescribed a controlled substance at d/c from ED?: No Referrals: Maulik Summers III, MD [Primary Care Provider] - 1-2 days Time of Disposition: 18:19
[2023-01-26 18:36] VITALS: BP 139/109; PULSE 63
== END 2023-01-26 18:48 | disposition home or self-care (01) ==
LOC: EC 15:49
DX: S01.01XA Laceration without foreign body of scalp, initial encounter (principal); M19.90 Unspecified osteoarthritis, unspecified site; F41.9 Anxiety disorder, unspecified; Z87.891 Personal history of nicotine dependence; Z88.2 Allergy status to sulfonamides; Z88.1 Allergy status to other antibiotic agents; Z88.0 Allergy status to penicillin; Z88.8 Allergy status to other drugs, medicaments and biological substances; Z79.82 Long term (current) use of aspirin; Z79.51 Long term (current) use of inhaled steroids; Z79.899 Other long term (current) drug therapy; W01.198A Fall on same level from slipping, tripping and stumbling with subsequent striking against other object, initial encounter
CPT/HCPCS: 72125; 70450; 99285; 12002; J2001

== ENCOUNTER 2023-05-10 23:58 | Inpatient (IN) | payer MEDICARE ==
[2023-05-11] MEDS ORDERED: methylPREDNISolone SOD SUCCI 125 MG/2 ML VIAL IV STA (00:26)
[2023-05-11 00:55] LABS: Basophils % (A) 0 %; Eosinophils % (A) 0 %; HCT 39.4 % (34.0-46.0); HGB 13.3 gm/dL (11.4-16.0); Lymphocytes # (A) 1.3 k/uL (1.0-4.8); Lymphocytes % (A) 20 %; MCH 29.7 pg (25.0-35.0); MCHC 33.7 g/dL (31.0-37.0); MCV 88.2 fL (80.0-100.0); Mean Platelet Volume 9.4; Monocytes # (A) 0.5 k/uL (0-1.0); Monocytes % (A) 7 %; Neutrophils # (A) 4.7 k/uL (1.3-7.7); Neutrophils % (A) 70 %; Platelet Count 134 k/uL (150-450); RBC 4.47 m/uL (3.80-5.40); RDW 14.2 % (11.5-15.5); WBC 6.7 k/uL (3.8-10.6)
[2023-05-11 01:12] LABS: INR 0.9 (<1.2); Partial Thromboplastin Time 25.6 sec (22.0-30.0); Prothrombin Time 9.8 sec (10.0-12.5)
--- NOTE | 2023-05-11 02:58 | ED ---
SOB HPI - General Chief Complaint: Shortness of Breath Stated Complaint: MIGUEL Time Seen by Provider: 05/11/23 00:09 Source: EMS Mode of arrival: EMS Limitations: altered mental status - History of Present Illness Initial Comments: 83-year-old female history of dementia presenting with chief complaint of difficulty breathing. Patient tested positive for Covid at home today. She has had progressive dyspnea and cough for a few days. Patient's daughter reports that while the patient is normally very confused at baseline she can normally walk with assistance and say hello and another basic greetings. The patient is obtunded at this time, daughter states that she has required increasing assistance. History is somewhat limited given the patient's advanced dementia and current mental status. - Related Data Home Medications Medication Instructions Recorded Confirmed Multivitamins, Thera [Multivitamin 1 tab PO DAILY 07/30/16 07/15/20 (formulary)] Memantine [Namenda] 10 mg PO BID 02/28/18 07/15/20 Escitalopram [Lexapro] 30 mg PO DAILY 09/01/18 07/15/20 QUEtiapine [SEROquel] 25 mg PO HS 09/01/18 07/15/20 Atorvastatin [Lipitor] 20 mg PO HS 04/24/19 07/15/20 Naproxen Sodium [Aleve] 220 mg PO BID 04/29/19 07/15/20 Fluticasone Nasal [place] [Flonase 1 spray EA NOSTRIL BID 02/08/20 07/15/20 Nasal [place]] Aspirin EC [Ecotrin Low Dose] 81 mg PO DAILY 07/15/20 07/15/20 Melatonin 5 mg PO HS 07/15/20 07/15/20 Metamucil Gummy 1 cap PO DAILY 07/15/20 07/15/20 Previous Rx's Medication Instructions Recorded Omeprazole [PriLOSEC] 40 mg PO DAVIDKFSTesfaye #30 jerel. 04/27/19 Cephalexin [Keflex] 500 mg PO Q8HR #0 07/16/20 Clindamycin [Cleocin] 300 mg PO Q6H #20 cap 07/16/20 Allergies Allergy/AdvReac Type Severity Reaction Status Date / Time amoxicillin Allergy Unknown Verified 07/15/20 19:24 erythromycin base Allergy Unknown Verified 07/15/20 19:20 [From Erythrocin] nitrofurantoin Allergy Unknown Verified 07/15/20 19:24 [From Macrobid] Sulfa (Sulfonamide Allergy Rash/Hives,difficulty Verified 07/15/20 19:20 Antibiotics) breathing Review of Systems ROS Statement: Those systems with pertinent positive or pertinent negative responses have been documented in the HPI. ROS Other: All systems not noted in ROS Statement are negative. 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 Date of last positivie culture/infection: 2012 MDRO Source:: THROAT Past Surgical History: Back Surgery, Joint Replacement Additional Past Surgical History / Comment(s): jas knees,carpal tunnel,neck surgery, rt shoulder Past Anesthesia/Blood Transfusion Reactions: No Reported Reaction Past Psychological History: Anxiety Smoking Status: Former smoker Past Alcohol Use History: None Reported Past Drug Use History: None Reported - Past Family History Father Family Medical History: Cancer Mother Family Medical History: Cancer Sister(s) Family Medical History: Myocardial Infarction ([place]) General Exam Limitations: altered mental status General appearance: obtunded Head exam: Present: atraumatic, normocephalic, normal inspection Neck exam: Present: normal inspection Respiratory exam: Present: rhonchi. Absent: normal lung sounds bilaterally Cardiovascular Exam: Present: regular rate, normal rhythm, normal heart sounds. Absent: systolic murmur, diastolic murmur, rubs, gallop, clicks Neurological exam: Present: altered Skin exam: Present: warm, dry Course Vital Signs 05/11/23 05/11/23 05/11/23 00:03 00:07 01:07 Temperature 97.7 F 98.0 F Pulse Rate 66 68 Respiratory 14 14 18 Rate Blood Pressure 160/90 150/81 O2 Sat by Pulse 96 98 Oximetry Medical Decision Making - Medical Decision Making Was pt. sent in by a medical professional or institution (, PA, MEDICAL COORDINATOR PESTICIDE USE, urgent care, hospital, or prison...) When possible be specific @ -No Did you speak to anyone other than the patient for history (EMS, parent, family, police, friend...)? What history was obtained from this source @ -History obtained from daughter at bedside Did you review nursing and triage notes (agree or disagree)? Why? @ -I reviewed and agree with nursing and triage notes Were old charts reviewed (outside hosp., previous admission, EMS record, old EKG, old radiological studies, urgent care reports/EKG's, prison records)? Report findings @ -No old charts were reviewed Differential Diagnosis (chest pain, altered mental status, abdominal pain women, abdominal pain men, vaginal bleeding, weakness, fever, dyspnea, syncope, headache, dizziness, GI bleed, back pain, seizure, CVA, palpatations, mental health, musculoskeletal)? @ -MDM Differential Dyspnea: Coronary syndrome, arrhythmia, tamponade, asthma, COPD, pulmonary embolism, pneumonia, pneumothorax, pulmonary effusion, anaphylaxis, diabetic ketoacidosis, flailed chest, pulmonary contusion, diaphragmatic rupture, anemia, neuromuscular this is not meant to be an all-inclusive list. EKG interpreted by me (3pts min.). @ -Sinus rhythm ventricular rate 69. [place] interval 161. QRS 86. QTC 399. QTc 418. X-rays interpreted by me (1pt min.). @ -Chest x-ray shows small left pleural effusion CT interpreted by me (1pt min.). @ -None done U/S interpreted by me (1pt. min.). @ -None done What testing was considered but not performed or refused? (CT, X-rays, U/S, labs)? Why? @ -None What meds were considered but not given or refused? Why? @ -None Did you discuss the management of the patient with other professionals (professionals i.e. , PA, MEDICAL COORDINATOR PESTICIDE USE, lab, RT, psych nurse, social welfare administrator, gas scrubber operator, teacher, dog license officer supervisor, case resolution specialist)? Give summary @ -I spoke with Dr. Kam who accepted admission Was smoking cessation discussed for >3mins.? @ -No Was critical care preformed (if so, how long)? @ -No Were there social determinants of health that impacted care today? How? (Homelessness, low income, unemployed, alcoholism, drug addiction, transportation, low edu. Level, literacy, decrease access to med. care, mcc, rehab)? @ -No Was there de-escalation of care discussed even if they declined (Discuss DNR or withdrawal of care, Hospice)? DNR status @ -No What co-morbidities impacted this encounter? (DM, HTN, Smoking, COPD, CAD, Cancer, CVA, ARF, Chemo, Hep., AIDS, mental health diagnosis, sleep apnea, morbid obesity)? @ -Dementia Was patient admitted / discharged? Hospital course, mention meds given and route , prescriptions, significant lab abnormalities, going to OR and other pertinent info. @ -83-year-old female presenting with chief complaint of shortness of breath. She tested positive for Covid at home today. On physical examination diffuse rhonchi are heard on auscultation. Patient is obtunded. Lab work shows no leukocytosis or anemia. Negative troponin. Chest x-ray shows small left pleural effusion. CMP, BNP, pro calcitonin, and UA are still pending at this time. Patient will be admitted. Daughter is agreeable with this plan. I discussed CODE STATUS wishes with the daughter, she states that at this time she requests that her mother remains full code. Patient is treated with Solu-Medrol and Levaquin. I discussed this case with my attending Dr. Leavitt Undiagnosed new problem with uncertain prognosis? @ -No Drug Therapy requiring intensive monitoring for toxicity (Heparin, Nitro, Insulin, Cardizem)? @ -No Were any procedures done? @ -No Diagnosis/symptom? @ -COVID-19 Acute, or Chronic, or Acute on Chronic? @ -Acute Uncomplicated (without systemic symptoms) or Complicated (systemic symptoms)? @ -Complicated Side effects of treatment? @ -No Exacerbation, Progression, or Severe Exacerbation? @ -No Poses a threat to life or bodily function? How? (Chest pain, [place], [place], pneumonia, PE, COPD, DKA, ARF, appy, cholecystitis, CVA, Diverticulitis, Homicidal, Suicidal, threat to staff... and all critical care pts) @ -Yes - Lab Data Result diagrams: 05/11/23 00:41 Lab Results 05/11/23 05/11/23 05/11/23 Range/Units 00:41 00:41 00:41 WBC 6.7 (3.8-10.6) k/uL RBC 4.47 (3.80-5.40) m/uL Hgb 13.3 (11.4-16.0) gm/dL Hct 39.4 (34.0-46.0) % MCV 88.2 (80.0-100.0) fL MCH 29.7 (25.0-35.0) pg MCHC 33.7 (31.0-37.0) g/dL RDW 14.2 (11.5-15.5) % Plt Count 134 L (150-450) k/uL MPV 9.4 Neutrophils % 70 % Lymphocytes % 20 % Monocytes % 7 % Eosinophils % 0 % Basophils % 0 % Neutrophils # 4.7 (1.3-7.7) k/uL Lymphocytes # 1.3 (1.0-4.8) k/uL Monocytes # 0.5 (0-1.0) k/uL Eosinophils # 0.0 (0-0.7) k/uL Basophils # 0.0 (0-0.2) k/uL PT 9.8 L (10.0-12.5) sec INR 0.9 (<1.2) APTT 25.6 (22.0-30.0) sec Troponin I <0.012 (0.000-0.034) ng/mL Disposition Clinical Impression: COVID Disposition: ADMITTED IP TO THIS HOSP Condition: Poor Referrals: Ulises Kam MD [Primary Care Provider] - 1-2 days Time of Disposition: 03:46
[2023-05-11] MEDS ORDERED: NALOXONE 0.4 MG/ML 1 ML VIAL IV PRN (03:41)
[2023-05-11] MEDS ORDERED: ACETAMINOPHEN TAB 325 MG TAB PO PRN (03:41)
--- NOTE | 2023-05-11 03:44 | XR ---
EXAM: XR Chest, 2 Views CLINICAL HISTORY: ITS.REASON XR Reason: difficulty breathing TECHNIQUE: Frontal and lateral views of the chest. COMPARISON: No relevant prior studies available. FINDINGS: Lungs: Unremarkable. No consolidation. Pleural space: Small left pleural effusion. No pneumothorax. Heart: Cardiomegaly. Mediastinum: Unremarkable. Normal mediastinal contour. Bones/joints: Right clavicle ORIF. No acute fracture. IMPRESSION: Small left pleural effusion.
[2023-05-11] MEDS ORDERED: LEVOFLOXACIN 750MG-D5W PMX 750 MG in DEXTROSE/WATER 1 150ML.BAG IVPB SCH (04:00)
[2023-05-11] MEDS ORDERED: LEVOFLOXACIN 750MG-D5W PMX 750 MG in DEXTROSE/WATER 1 150ML.BAG IVPB ONE (05:15)
[2023-05-11] MEDS ORDERED: FUROSEMIDE 10 MG/ML 4 ML VIAL IV STA (06:41)
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
[2023-05-11 07:14] LABS: ALT 21 U/L (4-34); AST 30 U/L (14-36); African American GFR (CKD) >90 (>60 ml/min/1.73 sqM); Albumin 3.5 g/dL (3.5-5.0); Alkaline Phosphatase 73 U/L (38-126); Anion Gap 10 mmol/L; Blood Urea Nitrogen 17 mg/dL (7-17); Calcium 8.5 mg/dL (8.4-10.2); Carbon Dioxide 29 mmol/L (22-30); Chloride 99 mmol/L (98-107); Glucose 165 mg/dL (74-99); Non-African American GFR(CKD) 88 (>60 ml/min/1.73 sqM); Sodium 138 mmol/L (137-145); Total Bilirubin 0.6 mg/dL (0.2-1.3); Total Protein 6.2 g/dL (6.3-8.2)
[2023-05-11 07:22] LABS: NT-Pro-B-Type Natriuretic Pept 467 pg/mL
[2023-05-11] MEDS ORDERED: REMDESIVIR 200 MG in SODIUM CHLORIDE 0.9% 250 ML IVPB ONE (09:00)
[2023-05-11] MEDS: ENOXAPARIN 40 MG/0.4 ML SYRINGE SQ SCH (12:16)
[2023-05-11] MEDS: DEXAMETHASONE SOD PHOSPHATE 10 MG/ML 1 ML VIAL IVP SCH (12:16)
[2023-05-11] MEDS: ASCORBIC ACID 500 MG TAB PO SCH (14:08)
[2023-05-11] MEDS: ZINC SULFATE 220 MG CAP PO SCH (14:09)
[2023-05-11] MEDS: CHOLECALCIFEROL 125 MCG (5000 IU) TABLET PO SCH (14:09)
--- NOTE | 2023-05-11 18:55 | HP ---
HISTORY AND PHYSICAL CHIEF COMPLAINT: Shortness of breath. HISTORY OF PRESENT ILLNESS: This 83-year-old female presented to the emergency room with shortness of breath. She does have COPD. She also has dementia. REVIEW OF SYSTEMS: Cannot be obtained. Past medical history, family history, and personal and social histories are unobtainable at this time. She is known to be allergic to penicillin, erythromycin, Macrodantin, and sulfa. She is on Norvasc, Aricept, Lexapro, Namenda, Seroquel, Prilosec, and Naprosyn. PHYSICAL EXAMINATION: VITAL SIGNS: Blood pressure is 143/85 with a pulse of 77, respirations of 35, and she is afebrile. GENERAL: She appeared to be in no acute distress. SKIN: Dry. HEAD, EARS, EYES, NOSE, MOUTH, AND THROAT: Normal. CHEST: Demonstrated poor breath sounds with occasional wheezing and scattered rales and rhonchi. CARDIAC: Normal. ABDOMEN: Soft and nontender. EXTREMITIES: Normal. IMPRESSION: 1. Exacerbation of chronic obstructive pulmonary disease. 2. History of hypertension. 3. Dementia. PLAN: 1. Bed rest. 2. IV fluids. 3. Nasal O2. 4. Updrafts and IV and inhaled steroids. MMODL / IJN: [id number] /
[2023-05-11] MEDS: MEMANTINE 10 MG TAB PO SCH (20:05)
[2023-05-11] MEDS: amLODIPine 2.5 MG TAB PO SCH (20:05)
[2023-05-11] MEDS: NAPROXEN 250 MG TAB PO SCH (20:05)
[2023-05-11] MEDS: ESCITALOPRAM 10 MG TAB PO SCH (20:05)
[2023-05-11] MEDS: DONEPEZIL 10 MG TAB PO SCH (20:05)
[2023-05-11] MEDS: QUEtiapine 50 MG TAB PO SCH (20:06)
[2023-05-12] MEDS: QUEtiapine 50 MG TAB PO SCH ×2 (09:23→21:09)
[2023-05-12] MEDS: NAPROXEN 250 MG TAB PO SCH ×2 (09:24→21:09)
[2023-05-12] MEDS: DEXAMETHASONE SOD PHOSPHATE 10 MG/ML 1 ML VIAL IVP SCH (09:24)
[2023-05-12] MEDS: ENOXAPARIN 40 MG/0.4 ML SYRINGE SQ SCH (09:24)
[2023-05-12] MEDS: CHOLECALCIFEROL 125 MCG (5000 IU) TABLET PO SCH (09:24)
[2023-05-12] MEDS: ASCORBIC ACID 500 MG TAB PO SCH (09:24)
[2023-05-12] MEDS: PANTOPRAZOLE 40 MG TABLET PO SCH (09:24)
[2023-05-12] MEDS: ZINC SULFATE 220 MG CAP PO SCH (09:24)
[2023-05-12] MEDS: MEMANTINE 10 MG TAB PO SCH ×2 (09:24→21:07)
[2023-05-12] MEDS: REMDESIVIR 100 MG in SODIUM CHLORIDE 0.9% 250 ML IVPB SCH (09:51)
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
[2023-05-12] MEDS: FUROSEMIDE 20 MG TAB PO SCH (15:55)
[2023-05-12] MEDS: ESCITALOPRAM 10 MG TAB PO SCH (21:08)
[2023-05-12] MEDS: amLODIPine 2.5 MG TAB PO SCH (21:09)
[2023-05-12] MEDS: DONEPEZIL 10 MG TAB PO SCH (21:09)
--- NOTE | 2023-05-12 21:23 | PN ---
PROGRESS NOTE DATE OF SERVICE: 05/12/2023 CHIEF COMPLAINT: COVID and difficulty breathing. HISTORY OF PRESENT ILLNESS: This 83-year-old white female is doing well. She does not appear to be short of breath. Family members with her and states that she seems to be doing fine. PHYSICAL EXAMINATION: CHEST: Quite clear. CARDIAC: Normal. ABDOMEN: Soft, nontender. IMPRESSION: 1. Coronavirus disease. 2. Chronic obstructive pulmonary disease. 3. Possible mild heart failure with elevated BNP. PLAN: Continue with nebulizer and IV fluids and gradually increase activity. MMODL / IJN: [id number] /
--- NOTE | 2023-05-13 07:27 | XR ---
EXAMINATION TYPE: XR chest 1V portable DATE OF EXAM: 05/13/2023 HISTORY: Shortness of breath. COMPARISON: 05/11/2023 TECHNIQUE: Single view of the chest is submitted. FINDINGS: Demonstrated are scattered senescent parenchymal change. Increased opacity left lower lobe may reflect atelectasis and/or small effusion. Overall pulmonary ve nous congestion has improved in the interval. The heart is stable. Hilar and mediastinal structures are within normal limits. Degenerative changes are seen of the dorsal spine. IMPRESSION: 1. Increased opacity left lower lobe may reflect atelectasis and/or small effusion. Overall pulmonar y venous congestion has improved in the interval.
[2023-05-13] MEDS: FUROSEMIDE 20 MG TAB PO SCH (09:01)
[2023-05-13] MEDS: NAPROXEN 250 MG TAB PO SCH ×2 (09:01→20:40)
[2023-05-13] MEDS: ASCORBIC ACID 500 MG TAB PO SCH (09:01)
[2023-05-13] MEDS: MEMANTINE 10 MG TAB PO SCH ×2 (09:01→20:40)
[2023-05-13] MEDS: CHOLECALCIFEROL 125 MCG (5000 IU) TABLET PO SCH (09:01)
[2023-05-13] MEDS: PANTOPRAZOLE 40 MG TABLET PO SCH (09:01)
[2023-05-13] MEDS: ENOXAPARIN 40 MG/0.4 ML SYRINGE SQ SCH (09:01)
[2023-05-13] MEDS: QUEtiapine 50 MG TAB PO SCH ×2 (09:01→20:40)
[2023-05-13] MEDS: ZINC SULFATE 220 MG CAP PO SCH (09:02)
[2023-05-13] MEDS: DEXAMETHASONE SOD PHOSPHATE 10 MG/ML 1 ML VIAL IVP SCH (09:02)
[2023-05-13] MEDS: HYDROCORTISONE 2.5% CREAM 30 GM TUBE TOPICAL SCH (09:02)
[2023-05-13] MEDS: REMDESIVIR 100 MG in SODIUM CHLORIDE 0.9% 250 ML IVPB SCH (10:01)
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
[2023-05-13 17:38] LABS: Appearance,Urine Clear (Clear); Bilirubin,Urine Negative (Negative); Blood,Urine Negative (Negative); Color,Urine Light Yellow; Glucose,Urine (UA) Negative (Negative); Ketones,Urine Negative (Negative); Leukocyte Esterase,Urine Negative (Negative); Nitrite,Urine Negative (Negative); PH, Urine 6.5 (5.0-8.0); Protein,Urine Negative (Negative); Specific Gravity,Urine 1.025 (1.001-1.035); Urobilinogen,Urine <2.0 mg/dL (<2.0)
[2023-05-13] MEDS: amLODIPine 2.5 MG TAB PO SCH (20:40)
[2023-05-13] MEDS: DONEPEZIL 10 MG TAB PO SCH (20:40)
[2023-05-13] MEDS: ESCITALOPRAM 10 MG TAB PO SCH (20:41)
[2023-05-14] MEDS: CHOLECALCIFEROL 125 MCG (5000 IU) TABLET PO SCH (09:38)
[2023-05-14] MEDS: PANTOPRAZOLE 40 MG TABLET PO SCH (09:38)
[2023-05-14] MEDS: MEMANTINE 10 MG TAB PO SCH ×2 (09:38→21:45)
[2023-05-14] MEDS: FUROSEMIDE 20 MG TAB PO SCH (09:38)
[2023-05-14] MEDS: ZINC SULFATE 220 MG CAP PO SCH (09:38)
[2023-05-14] MEDS: ASCORBIC ACID 500 MG TAB PO SCH (09:38)
[2023-05-14] MEDS: DEXAMETHASONE SOD PHOSPHATE 10 MG/ML 1 ML VIAL IVP SCH (09:38)
[2023-05-14] MEDS: ENOXAPARIN 40 MG/0.4 ML SYRINGE SQ SCH (09:39)
[2023-05-14] MEDS: HYDROCORTISONE 2.5% CREAM 30 GM TUBE TOPICAL SCH (09:39)
[2023-05-14] MEDS: NAPROXEN 250 MG TAB PO SCH ×2 (09:40→21:45)
[2023-05-14] MEDS: QUEtiapine 50 MG TAB PO SCH ×2 (09:40→21:46)
[2023-05-14] MEDS: REMDESIVIR 100 MG in SODIUM CHLORIDE 0.9% 250 ML IVPB SCH (10:41)
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
--- NOTE | 2023-05-14 15:46 | PN ---
PROGRESS NOTE DATE OF SERVICE: 05/13/2023 LOCATION: 370. CHIEF COMPLAINT: COVID and COPD. HISTORY OF PRESENT ILLNESS: This lady is doing well. She is not particularly short of breath or febrile. PREOPERATIVE DIAGNOSIS: SKIN: Color is good. GENERAL: She is awake and alert. CHEST: Clear. CARDIAC: Normal. ABDOMEN: Soft and nontender. IMPRESSION: 1. COVID. 2. Dementia. PLAN: Continue with treatment and probably discharge first of the week if she remains stable. MMODL / IJN: [id number] /
--- NOTE | 2023-05-14 17:08 | PN ---
PROGRESS NOTE DATE OF SERVICE: 05/14/2023 CHIEF COMPLAINT: COVID and COPD. HISTORY OF PRESENT ILLNESS: This lady is doing well. She is not having any problems with breathing. PHYSICAL EXAMINATION: VITAL SIGNS: Good. CHEST: Quite clear. CARDIAC: Normal. ABDOMEN: Soft and nontender. IMPRESSION: 1. COVID. 2. Exacerbation of chronic obstructive pulmonary disease. PLAN: This lady is doing well and will be able to be discharged tomorrow. MMODL / IJN: [id number] /
[2023-05-14] MEDS ORDERED: amLODIPine 10 MG TAB PO SCH (21:00)
[2023-05-14] MEDS: DONEPEZIL 10 MG TAB PO SCH (21:45)
[2023-05-14] MEDS: ESCITALOPRAM 10 MG TAB PO SCH (21:46)
[2023-05-15] MEDS: MEMANTINE 10 MG TAB PO SCH (09:19)
[2023-05-15] MEDS: PANTOPRAZOLE 40 MG TABLET PO SCH (09:19)
[2023-05-15] MEDS: ENOXAPARIN 40 MG/0.4 ML SYRINGE SQ SCH (09:19)
[2023-05-15] MEDS: ZINC SULFATE 220 MG CAP PO SCH (09:19)
[2023-05-15] MEDS: ASCORBIC ACID 500 MG TAB PO SCH (09:19)
[2023-05-15] MEDS: FUROSEMIDE 20 MG TAB PO SCH (09:19)
[2023-05-15] MEDS: CHOLECALCIFEROL 125 MCG (5000 IU) TABLET PO SCH (09:19)
[2023-05-15] MEDS: NAPROXEN 250 MG TAB PO SCH (09:20)
[2023-05-15] MEDS: QUEtiapine 50 MG TAB PO SCH (09:20)
[2023-05-15] MEDS: DEXAMETHASONE SOD PHOSPHATE 10 MG/ML 1 ML VIAL IVP SCH (09:20)
[2023-05-15] MEDS: REMDESIVIR 100 MG in SODIUM CHLORIDE 0.9% 250 ML IVPB SCH (10:00)
[2023-05-15] MEDS: HYDROCORTISONE 2.5% CREAM 30 GM TUBE TOPICAL SCH (10:02)
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
[2023-05-15 14:29] VITALS: BP 150/84; PULSE 57; RESP 19; TEMP 96.9
--- NOTE | 2023-05-15 23:35 | DS ---
DISCHARGE SUMMARY CHIEF COMPLAINT: Cough and fever. HISTORY OF PRESENT ILLNESS AND PHYSICAL EXAMINATION: Details of this lady's history and physical can be found in the initial workup. LABORATORY STUDIES: While she was in the hospital, she had laboratory studies, details of which can be found in the laboratory section of her chart. COURSE IN THE HOSPITAL: After admission, she was placed on bedrest, started on intravenous fluids, and started on COVID protocol. She had no problems with fever, chills, shortness of breath, etc. She did well. After she had completed her course of remdesivir and she was doing well, it was felt she could be discharged on and she will go home on her usual diet, activity, and will be followed up in the office. FINAL DIAGNOSES: 1. Coronavirus disease. 2. Dementia. OPERATIONS: None. CONSULTATION: Pulmonology. BJ / IVY: [id number] /
== END 2023-05-15 18:00 | disposition home or self-care (01) | DRG 177 ==
LOC: EC 23:58 → 6NMEDSUR 05-11 03:45 → 3SCARD 05-11 06:18 → 4SSUR 05-13 10:44 → OBSVTOIN 05-15 08:21
PROVIDERS: ADMIT Family Medicine; ATTEND Family Medicine
PROC: 8E0ZXY6 Isolation (ICD-10-PCS; principal; 2023-05-12)
PROC: XW033E5 Introduction of Remdesivir Anti-infective into Peripheral Vein, Percutaneous Approach, New Technology Group 5 (ICD-10-PCS; principal; 2023-05-12)
DX: U07.1 COVID-19 (principal); J12.82 Pneumonia due to coronavirus disease 2019; J96.01 Acute respiratory failure with hypoxia; J90 Pleural effusion, not elsewhere classified; J44.0 Chronic obstructive pulmonary disease with (acute) lower respiratory infection; F03.94 Unspecified dementia, unspecified severity, with anxiety; J44.1 Chronic obstructive pulmonary disease with (acute) exacerbation; I87.2 Venous insufficiency (chronic) (peripheral); E78.5 Hyperlipidemia, unspecified; I11.9 Hypertensive heart disease without heart failure; Z96.653 Presence of artificial knee joint, bilateral; Z96.611 Presence of right artificial shoulder joint; Z87.891 Personal history of nicotine dependence; Z87.820 Personal history of traumatic brain injury; Z79.899 Other long term (current) drug therapy; Z79.82 Long term (current) use of aspirin; Z88.0 Allergy status to penicillin; Z88.1 Allergy status to other antibiotic agents; Z88.2 Allergy status to sulfonamides; Z86.14 Personal history of Methicillin resistant Staphylococcus aureus infection; Z87.01 Personal history of pneumonia (recurrent)
CPT/HCPCS: 36415; 71045; 71046; 80053; 81003; 83880; 84145; 84484; 85025; 85379; 85610; 85730; 87040; 87636; 93005; 94760; 96365; 96366; 96368; 96372; 96375; 99285